=== PATIENT | male | born 1955 | race Caucasian/White ===

== ENCOUNTER 2016-10-19 17:19 | Inpatient (IN) | payer MEDICARE, MEDICAID ==
[2016-10-19 18:15] LABS: Hematocrit 38 % (42-52); Hemoglobin 13.4 g/dl (14.0-18.0); Mean Corpuscular HGB Conc 36 g/dl (31-36); Mean Corpuscular Hemoglobin 35 pg (27-31); Mean Corpuscular Volume 97 fL (80-94); Mean Platelet Volume 8 um3 (7.4-10.4); Red Cell Distribution Width 13 % (10.5-15); White Blood Count 4.9 10^3/ul (3.5-10.8)
[2016-10-19 18:31] LABS: ALT 66 U/L (7-52); AST 64 U/L (13-39); Albumin 3.9 g/dL (3.2-5.2); Alkaline Phosphatase 50 U/L (34-104); Anion Gap 7 mmol/L (2-11); BUN/Creatinine Ratio 13.4 (8-20); Blood Urea Nitrogen 11 mg/dL (6-24); CO2 Carbon Dioxide 26 mmol/L (22-32); Calcium 9.1 mg/dL (8.6-10.3); Chloride 104 mmol/L (101-111); EGFR African American 122.8 (>60); EGFR Non-African American 95.5 (>60); Globulin 2.5 g/dL (2-4); Glucose 101 mg/dL (70-100); Potassium 3.6 mmol/L (3.5-5.0); Sodium 137 mmol/L (133-145); Total Protein 6.4 g/dL (6.4-8.9)
[2016-10-19 18:39] LABS: Acetaminophen < 15 mcg/mL; Alcohol < 10 mg/dL (<10); Salicylate < 2.50 mg/dL (<30)
[2016-10-19] MEDS ORDERED: Haloperidol INJ IV/IM* 5 MG/ML AMP IM ONE (18:50)
[2016-10-19] MEDS ORDERED: diPHENhydraMINE IV* 50 MG/ML 1 ml VIAL (BENADRYL) IM ONE (18:50)
[2016-10-19] MEDS ORDERED: LORazepam INJ* 2 MG/ML 1 ML VIAL IM ONE (18:50)
[2016-10-19 18:51] LABS: TSH (Thyroid Stimulating Horm) 0.95 mcIU/mL (0.34-5.60)
[2016-10-19 18:56] LABS: Urine Bilirubin Negative (Negative); Urine Glucose Negative (Negative); Urine Nitrite Negative (Negative)
[2016-10-19 19:12] LABS: Benzodiazepine Urine Screen None Detected (None Detect)
[2016-10-19 21:47] LABS: Lithium < 0.10 mmol/L (0.6-1.2)
--- NOTE | 2016-10-19 23:11 | ED ---
Geraldine Blum Thomas, scribed for Maty Youssef MD on 10/19/16 at 2111 . Psychiatric Complaint - HPI Summary HPI Summary: LEVEL 5 CAVEAT: HPI IS LIMITED BY PATIENTS UNCOOPERATIVE DEMEANOR The patient is a 61 y/o M BIB police. Upon questioning, the patient responds I refuse to talk to anyone. There is additional history provided in nursing documentation. He is pacing and agitated. - History Of Current Complaint Chief Complaint: EDMentalHealth Time Seen by Provider: 10/19/16 18:50 Hx Obtained From: Other: - Police, EMR, nursing Character: Angry - refusing to talk or cooperate with MD and staff - Allergies/Home Medications Allergies/Adverse Reactions: Allergies Allergy/AdvReac Type Severity Reaction Status Date / Time Molds & Smuts Allergy Unknown Unknown Verified 04/24/15 15:55 Reaction Details Penicillins Allergy Unknown Unknown Verified 04/24/15 15:55 Reaction Details PMH/Surg Hx/FS Hx/Imm Hx Previously Healthy: No - LEVEL 5 CAVEAT: PMH IS LIMITED BY PATIENTS UNCOOPERATIVE DEMEANOR Endocrine/Hematology History: Denies: Hx Anticoagulant Therapy Sensory History: Reports: Hx Contacts or Glasses Opthamlomology History: Reports: Hx Contacts or Glasses Neurological History: Reports: Other Neuro Impairments/Disorders - hx of benztropine tx Denies: Hx Seizures Psychiatric History: Reports: Hx Anxiety, Hx Depression, Hx [place]patient Treatment - [facility] [place] [facility], Hx Community Mental Health Tx, Hx Schizophrenia - hx of navane tx. , Hx Bipolar Disorder, Hx of Violent Episodes Against Others, Other Psychiatric Issues/Disorders - Psychosis - Immunization History Date of Tetanus Vaccine: unk Infectious Disease History: Unable to Obtain/Confirm Infectious Disease History: Denies: Traveled Outside the [place] in Last 30 Days - Family History Known Family History: Positive: Unknown - Patient is a LEVEL 5 CAVEAT Family History: schizophrenia, depression - Social History Alcohol Use: refuses to cooperate with assessment Substance Use Type: Reports: None Smoking Status (MU): Never Smoked Tobacco Review of Systems - ROS Summary Review of Systems Summary: LEVEL 5 CAVEAT: ROS IS LIMITED BY PATIENTS UNCOOPERATIVE DEMEANOR Negative: Fever Positive: Other - POS: pacing, agitation All Other Systems Reviewed And Are Negative: No Physical Exam - Summary Physical Exam Summary: LEVEL 5 CAVEAT: PHYSICAL EXAM IS LIMITED BY PATIENTS UNCOOPERATIVE DEMEANOR Physical exam is by observation only. Pt will not allow physical contact by me. Triage Information Reviewed: Yes Vital Signs On Initial Exam: Initial Vitals Temp Pulse Resp BP Pulse Ox 98.8 F 106 18 174/81 99 10/19/16 17:21 10/19/16 17:21 10/19/16 17:21 10/19/16 17:21 10/19/16 17:21 Vital Signs Reviewed: Yes Appearance: Positive: Well-Appearing, No Pain Distress, Well-Nourished Skin: Positive: Skin Color Reflects Adequate Perfusion, Dry Head/Face: Positive: Normal Head/Face Inspection Eyes: Positive: Conjunctiva Clear ENT: Positive: Normal ENT inspection Neck: Positive: Supple Respiratory/Lung Sounds: Positive: Other - No respiratory distress Musculoskeletal: Positive: Strength/ROM Intact Neurological: Positive: Facial Symmetry, Speech Normal Psychiatric: Positive: Other - He is pacing and agitated, Patient Uncooperative for Exam - Irasema Coma Scale Coma Scale Total: 14 Diagnostics - Vital Signs Vital Signs Temp Pulse Resp BP Pulse Ox 10/19/16 19:01 19 10/19/16 17:44 98.8 F 106 18 174/81 99 10/19/16 17:21 98.8 F 106 18 174/81 99 - Laboratory Lab Results: Lab Results 10/19/16 10/19/16 10/19/16 Range/Units 18:05 18:05 18:40 WBC 4.9 (3.5-10.8) 10^3/ul RBC 3.90 L (4.0-5.4) 10^6/ul Hgb 13.4 L (14.0-18.0) g/dl Hct 38 L (42-52) % MCV 97 H (80-94) fL MCH 35 H (27-31) pg MCHC 36 (31-36) g/dl RDW 13 (10.5-15) % Plt Count 143 L (150-450) 10^3/ul MPV 8 (7.4-10.4) um3 Neut % (Auto) 63.2 (38-83) % Lymph % (Auto) 23.6 L (25-47) % [place] % (Auto) 10.3 H (1-9) % Eos % (Auto) 2.4 (0-6) % Baso % (Auto) 0.5 (0-2) % Absolute Neuts (auto) 3.1 (1.5-7.7) 10^3/ul Absolute Lymphs (auto) 1.2 (1.0-4.8) 10^3/ul Absolute Monos (auto) 0.5 (0-0.8) 10^3/ul Absolute Eos (auto) 0.1 (0-0.6) 10^3/ul Absolute Basos (auto) 0 (0-0.2) 10^3/ul Absolute Nucleated RBC 0 10^3/ul Nucleated RBC % 0.1 Sodium 137 (133-145) mmol/L Potassium 3.6 (3.5-5.0) mmol/L Chloride 104 (101-111) mmol/L Carbon Dioxide 26 (22-32) mmol/L Anion Gap 7 (2-11) mmol/L BUN 11 (6-24) mg/dL Creatinine 0.82 (0.67-1.17) mg/dL Est GFR ( Amer) 122.8 (>60) Est GFR (Non-Af Amer) 95.5 (>60) BUN/Creatinine Ratio 13.4 (8-20) Glucose 101 H (70-100) mg/dL Calcium 9.1 (8.6-10.3) mg/dL Total Bilirubin 1.10 H (0.2-1.0) mg/dL AST 64 H (13-39) U/L ALT 66 H (7-52) U/L Alkaline Phosphatase 50 (34-104) U/L Total Protein 6.4 (6.4-8.9) g/dL Albumin 3.9 (3.2-5.2) g/dL Globulin 2.5 (2-4) g/dL Albumin/Globulin Ratio 1.6 (1-3) TSH 0.95 (0.34-5.60) mcIU/mL Urine Color Urine Appearance Urine pH (5-9) Ur Specific [place] (1.010-1.030) Urine Protein (Negative) Urine Ketones (Negative) Urine Blood (Negative) Urine Nitrate (Negative) Urine Bilirubin (Negative) Urine Urobilinogen (Negative) Ur Leukocyte Esterase (Negative) Urine Glucose (Negative) Salicylates < 2.50 (<30) mg/dL Urine Opiates Screen None detected (None Detect) Acetaminophen < 15 mcg/mL Ur Barbiturates Screen None detected (None Detect) Ur Phencyclidine Scrn None detected (None Detect) Ur Amphetamines Screen None detected (None Detect) U Benzodiazepines Scrn None detected (None Detect) Urine Cocaine Screen None detected (None Detect) U Cannabinoids Screen None detected (None Detect) Serum Alcohol < 10 (<10) mg/dL 10/19/16 Range/Units 18:40 WBC (3.5-10.8) 10^3/ul RBC (4.0-5.4) 10^6/ul Hgb (14.0-18.0) g/dl Hct (42-52) % MCV (80-94) fL MCH (27-31) pg MCHC (31-36) g/dl RDW (10.5-15) % Plt Count (150-450) 10^3/ul MPV (7.4-10.4) um3 Neut % (Auto) (38-83) % Lymph % (Auto) (25-47) % [place] % (Auto) (1-9) % Eos % (Auto) (0-6) % Baso % (Auto) (0-2) % Absolute Neuts (auto) (1.5-7.7) 10^3/ul Absolute Lymphs (auto) (1.0-4.8) 10^3/ul Absolute Monos (auto) (0-0.8) 10^3/ul Absolute Eos (auto) (0-0.6) 10^3/ul Absolute Basos (auto) (0-0.2) 10^3/ul Absolute Nucleated RBC 10^3/ul Nucleated RBC % Sodium (133-145) mmol/L Potassium (3.5-5.0) mmol/L Chloride (101-111) mmol/L Carbon Dioxide (22-32) mmol/L Anion Gap (2-11) mmol/L BUN (6-24) mg/dL Creatinine (0.67-1.17) mg/dL Est GFR ( Amer) (>60) Est GFR (Non-Af Amer) (>60) BUN/Creatinine Ratio (8-20) Glucose (70-100) mg/dL Calcium (8.6-10.3) mg/dL Total Bilirubin (0.2-1.0) mg/dL AST (13-39) U/L ALT (7-52) U/L Alkaline Phosphatase (34-104) U/L Total Protein (6.4-8.9) g/dL Albumin (3.2-5.2) g/dL Globulin (2-4) g/dL Albumin/Globulin Ratio (1-3) TSH (0.34-5.60) mcIU/mL Urine Color Straw Urine Appearance Clear Urine pH 5.0 (5-9) Ur Specific [place] 1.005 L (1.010-1.030) Urine Protein Negative (Negative) Urine Ketones Trace H (Negative) Urine Blood Negative (Negative) Urine Nitrate Negative (Negative) Urine Bilirubin Negative (Negative) Urine Urobilinogen Negative (Negative) Ur Leukocyte Esterase Negative (Negative) Urine Glucose Negative (Negative) Salicylates (<30) mg/dL Urine Opiates Screen (None Detect) Acetaminophen mcg/mL Ur Barbiturates Screen (None Detect) Ur Phencyclidine Scrn (None Detect) Ur Amphetamines Screen (None Detect) U Benzodiazepines Scrn (None Detect) Urine Cocaine Screen (None Detect) U Cannabinoids Screen (None Detect) Serum Alcohol (<10) mg/dL Result Diagrams: 11/02/16 17:47 11/02/16 18:30 Lab Statement: Any lab studies that have been ordered have been reviewed, and results considered in the medical decision making process. - EKG 21:30 Cardiac Rate: NL - A-Fib at 88 BPM. Nml AV/IV/QTc. Left axis deviation (2). No acute changes. Nonspecific ST T-Wave changes. EKG Comparison: No Significant Change - compard to 06/21/12 Course/Dx - Course Assessment/Plan: The patient is a 61 y/o M who is brought in by police and is uncooperative on examination. He is medically cleared at 19:27. Bloodwork shows RBC 3.9, Hgb 13.4, Hct 38, Plt Count 143, bilirubin 1.1, AST 64, ALT 66. UA shows trace ketones and specific gravity 1.005. Urine toxicology is negative and lithium is less than 0.10. EKG shows A-Fib at 88 BPM with no acute changes. He is diagnosed with Bipolar disorder acute exacerbation, medication non- compliance, and elevated liver functions, chronic atrial fibrillation at a controlled rate. He will be admitted to [facility]. - Differential Dx/Clinical Impression Provider Diagnosis: Bipolar disorder acute exacerbation, Non compliance w medication regimen, Elevated liver function tests - Critical Care Time Critical Care Time: 30-74 min - 30 minutes in uncooperative mental health patient requiring medical restraints with haldol, benadryl and lorazepam. Discharge - Discharge Plan Condition: Fair Disposition: ADMITTED TO [facility] documentation as recorded by the Geraldine molina Thomas accurately reflects the service I personally performed and the decisions made by Mikael marte Barbara J, MD.
[2016-10-19] MEDS ORDERED: Nicotine GUM* 2 MG PO PRN (23:27)
[2016-10-19] MEDS ORDERED: Acetaminophen TAB* 325 MG PO PRN (23:27)
[2016-10-19] MEDS ORDERED: clonazePAM TAB(*) 1 MG PO ONE (23:36)
[2016-10-19] MEDS ORDERED: clonazePAM TAB(*) 0.5 MG ONE (23:38)
[2016-10-20] MEDS: Lithium Carbonate TAB* 300 MG PO SCH ×2 (01:07→20:12)
[2016-10-20] MEDS: Vitamin THERAPEUTIC TAB PO SCH (14:29)
[2016-10-20] MEDS: Calcium/Vitamin D TAB 250/125* TAB PO SCH ×2 (14:29→22:28)
[2016-10-20] MEDS: Losartan TAB* 25 MG PO SCH (14:29)
[2016-10-20] MEDS: Senna TAB PO SCH ×2 (14:29→20:16)
[2016-10-20] MEDS: Polyethylene Glycol 3350* 17 GM PACKET PO SCH (14:29)
[2016-10-20] MEDS: Benztropine TAB* 1 MG PO SCH ×2 (14:29→22:28)
[2016-10-20] MEDS: Warfarin TAB(*) 2 MG PO SCH ×2 (17:30→17:55)
[2016-10-20] MEDS: Warfarin TAB(*) 2.5 MG PO SCH ×2 (17:31→17:56)
[2016-10-20] MEDS: MELATONIN 1 MG PO SCH (17:31)
--- NOTE | 2016-10-20 21:38 | HP ---
HISTORY AND PHYSICAL: DATE OF ADMISSION: IDENTIFYING DATA: Mr. Lopez is well known to this unit and surrounding hospitals with psychiatric unit for repeated hospitalizations due to his diagnosis of chronic schizophrenia. Last night, he w as brought to [facility] by ambulance for an evaluation because of disorganized behaviors in his apartme nt. CHIEF COMPLAINT: "I can't get along with ACT Team." HISTORY OF PRESENT ILLNESS: Mr. Lopez as usual is a very unreliable and uncooperative historian. At one moment, he will insist on talking to his doctor and next moment he will walk away from the e valuation, which he did today as well. However, during the brief encounter I had with him, he report s that he does not like the ACT Team and would not work with them anymore and to avoid them he decid ed to come to the emergency department and got hospitalized. Otherwise, he inappropriately smiles a nd walks away very fast, goes to the bathroom, washes something and comes back to say "how did I do. " Multiple attempts to get more informations from him was unsuccessful. At one point, he replied t o a question that I never had heard voices, you were just making it up. He paces the unit very fast , sometimes in a very intimidating manner; however, remains calm and pleasant when redirected. Revi ew of his records from the past also shows this similar behavior. In the emergency department last night, when our evaluators tried to assess him he did not cooperate at all. On the unit, he is not much of a management problem and as per nursing report has been compliant with medication management except for not attending any therapeutic groups or unit activities. PAST PSYCHIATRIC HISTORY: Past psychiatric history is remarkable for numerous psychiatric hospitali zations, which started at around age 15. He was diagnosed with schizophrenia and has a long history of noncompliance with outpatient treatments. He is currently under ACT Team and not happy with the m unwilling to cooperate with the ACT Team. PAST MEDICAL HISTORY: Remarkable for aortic stenosis and atrial fibrillation. FAMILY HISTORY: Obtained from the records indicate that both sides of his family has struggled with mental illness and diagnosis of schizophrenia, depression, and anger management difficulties. His older brother also suffered from mental illness. However, there is no family history of completed s uicide. PERSONAL AND SOCIAL HISTORY: Mr. Lopez was never , been mentally disabled for entire life. Currently, placed in an apartment where he lives by himself and followed by [facility]. 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 PHYSICAL EXAMINATION Physical exam was offered, but he just walked away stating you have no business doing a physical bec ause your are not my doctor. However, he was not in any physical distress. Review of vitals shows a blood pressure of 174/81, pulse 106, respirations 18, temperature 98.8, pul se ox 99% on room air. LABORATORY DATA: Labs included CBC with differential, chemistry profile, urinalysis, urine drug sc reen, and tox screen. CBC with differential shows WBC of 4.9, hemoglobin 13.4, hematocrit 38, MCV 9 7, platelet count 143. Rest of the report is unremarkable. Chemistry profile shows a sodium level of 137, potassium 3.6, chloride 104, carbon dioxide 27, BUN 11, creatinine 0.82, glucose 101 random. Rest of the reports unremarkable. Salicylate level less than 2.5, acetaminophen level less than 15 , serum alcohol level less than 10. EKG done in the emergency department was within normal limits. I have not seen a result on INR yet, which was ordered last night. MENTAL STATUS EXAMINATION: Mr. Lopez is an average height, healthy appearing, white male, neatly dressed and groomed. Alert and oriented to time, place, and person. Fidgety and restless. Paces t he unit, very difficult to engage him in any kind of meaningful conversations. Speech is rapid. Ci rcumstantial and tangential. No evidence of perceptual disturbances, although psychomotor agitation is visible. Denies any suicidal or homicidal ideations. Insight and judgment impaired. SUMMARY: This is a 61-year-old mentally disabled since age 15, male with numerous psychia tric hospitalizations, history of nonadherence to all treatment recommendations, was rehospitalized weeks after his discharge from [facility] for the same reason that he comes to the emergency room complaining of having difficulty getting along with his ACT Team. He does not a ppear to be in any acute psychotic, manic, or hypomanic condition, and he received his long-acting i njectable Invega Sustenna few weeks ago, which appears to be working fine at this time. DIAGNOSIS: Schizophrenia, chronic. PHYSICAL HEALTH DIAGNOSES: Atrial fib, aortic stenosis. TREATMENT RECOMMENDATIONS: Mr. Lopez will need a brief hospitalization on this unit and the disch arge plan is to coordinate a safe discharge with the ACT Team and discharge him back to the critical access hospital y without further delay as this appears to be Mr. Lopez's baseline mental status. While he is on the unit, his code status will be full, milieu, individual, supportive, and group therapy will be in itiated and the patient will be encouraged to participate. I do not see any reason for adjusting an y of his medications at this time because this is what appears to be his baseline mental status. [id number]/[facility] #: [id number]
[2016-10-20] MEDS: clonazePAM TAB(*) 1 MG PO SCH (22:28)
[2016-10-21] MEDS: Benztropine TAB* 1 MG PO SCH ×2 (13:20→21:23)
[2016-10-21] MEDS: Polyethylene Glycol 3350* 17 GM PACKET PO SCH (13:20)
[2016-10-21] MEDS: Losartan TAB* 25 MG PO SCH (13:20)
[2016-10-21] MEDS: Vitamin THERAPEUTIC TAB PO SCH (13:20)
[2016-10-21] MEDS: Senna TAB PO SCH ×2 (13:20→21:24)
[2016-10-21] MEDS: Calcium/Vitamin D TAB 250/125* TAB PO SCH ×2 (13:20→21:23)
[2016-10-21] MEDS: Warfarin TAB(*) 2.5 MG PO SCH (17:35)
[2016-10-21] MEDS: MELATONIN 1 MG PO SCH (17:35)
[2016-10-21] MEDS: Warfarin TAB(*) 2 MG PO SCH (17:35)
[2016-10-21] MEDS: clonazePAM TAB(*) 1 MG PO SCH (21:23)
[2016-10-21] MEDS: Lithium Carbonate TAB* 300 MG PO SCH (21:24)
--- NOTE | 2016-10-22 10:36 | PN ---
Subjective - Subjective Service Type: 44525 Hosp care 15 min low complexity Subjective: Patient noted to be dismissive of staff and focused on discharge since admission. Patient declined interview with this provider. Patient is noted to be on coumadin and RN reported to this provider that his last INR was 1.1 on 10/18/16. Patient's [place] level also noted to be subtherapeutic on admission at 0.10. Patient's Navane nor his Risperdal was not restarted on admission. Patient is on Coumadin therapy for Afib but there seems to be 2 orders entered for admission at the same time. Patient has likely been non-compliant with these meds as well. Patient noted to be non-compliant with ACT team. Patient has had multiple psychiatric admissions most 2/2 becoming med non-compliant. Patient admitted this Saturday for decompensated paranoid Schizophrenia. Will D/C Navane and patient historically has asked to be taken off this med. Will continue Risperdal with plan to initiate Invega Sustenna prior to his discharge. Objective - Appearance Appearance: Healthy Appearing, Thin Framed Dysmorphic Features: No Hygiene: Normal Grooming: Fairly Well Kept - Behavior Psychomotor Activities: Normal Exhibits Abnormal Movement: No - Attitude and Relatedness Attitude and Relatedness: Regressed Eye Contact: Poor - Speech Quality: Unpressured Latencies: Normal Quantity: Terse - Affect Observed Affect: Tense Affect Consistent with: Dysphoria - Thought Process Thought Content: Yes Paranoid Ideation - present on admission, unable to assess today, No Passive Wish - unable to assess, No Suicidal Planning - unable to assess, No Homicidal Ideation - unable to assess - Sensorium Type of Hallucinations: Visual: No - unable to assess, Auditory: No - unable to assess, Command: No - unable to assess - Level of Consciousness Level of Consciousness: Alert Orientation: Yes Intact, Yes Orientated to Time, Yes Orientated to Place, Yes Orientated to Person - Impulse Control Impulse Control: Impaired - Insight and Judgement Insight and Judgement: Impaired - Group Participation Particating in Group Activities: No - Medication Management Medication Management Adherence: No Assessment - Assessment Merits Inpatient Hospitalization: For Immediate Safety, For Stabilization Inpatient DSM-IV Dx: Schizophrenia Plan - Plan Treatment Plan: Name: JESUS BENITEZ Birthdate: 1955 [id number] 1. Continue admission to [facility] for safety and symptom mx. 2. Patient's Navane nor his Risperdal was not restarted on admission. Will D/C Navane due to patient's reported disdain for med and hx of med non- compliance. 3. Will Continue Risperdal at 3mg po qhs for psychosis with plan to initiate Invega Sustenna prior to discharge. 4. Continue [place] at home dose of 1,200mg po qhs for mood. Patient's [place] level noted to be subtherapeutic on admission at 0.10. 5. Will call outpt provider who Rx's Coumadin to clarify dose. Will continue Coumadin as currently Rx'd. Patient's last INR was 1.1 on 10/18/16. 6. Continue to obtain collateral information from family and ACTteam. 7. Patient to participate in milieu activities and groups. Medications: Current Medications Acetaminophen (Tylenol Tab*) 650 mg PO Q4H PRN PRN Reason: PAIN or TEMP > 101 F Al Hydrox/Mg Hydrox/Simethicone (Maalox Plus*) 30 ml PO Q4H PRN PRN Reason: INDIGESTION Benztropine Mesylate (Cogentin Tab*) 1 mg PO BID [facility] Last Admin: 10/21/16 21:23 Dose: Not Given Calcium/Vitamin D (Oscal D Tab 250/125*) 2 tab PO BID [facility] Last Admin: 10/21/16 21:23 Dose: Not Given Clonazepam (Klonopin Tab(*)) 1 mg PO BEDTIME [facility] Last Admin: 10/21/16 21:23 Dose: Not Given [place] Carbonate ([place] Carbonate Tab*) 1,200 mg PO BEDTIME [facility] Last Admin: 10/21/16 21:24 Dose: Not Given Losartan Potassium (Cozaar Tab*) 25 mg PO DAILY [facility] Last Admin: 10/21/16 13:20 Dose: Not Given Multivitamins (Theragran Tab*) 1 tab PO DAILY [facility] Last Admin: 10/21/16 13:20 Dose: Not Given Nicotine Polacrilex (Nicotine Gum*) 2 mg PO Q2H PRN PRN Reason: CRAVING Non Formulary Med* (Melatonin 1mg Tab) 1 admin PO 1700 [facility] Last Admin: 10/21/16 17:35 Dose: Not Given Polyethylene Glycol/Electrolytes (Miralax*) 17 gm PO DAILY [facility] Last Admin: 10/21/16 13:20 Dose: Not Given Senna (Senokot Tab*) 1 tab PO BID [facility] Last Admin: 10/21/16 21:24 Dose: Not Given Warfarin Sodium (Coumadin Tab(*)) 2 mg PO 1700 [facility] Last Admin: 10/21/16 17:35 Dose: Not Given Warfarin Sodium (Coumadin Tab(*)) 2.5 mg PO 1700 [facility] Last Admin: 10/21/16 17:35 Dose: Not Given - Discharge Plan Discharge Plan: Outpatient Follow Up
[2016-10-22] MEDS: Losartan TAB* 25 MG PO SCH (10:39)
[2016-10-22] MEDS: Calcium/Vitamin D TAB 250/125* TAB PO SCH ×3 (10:39→21:28)
[2016-10-22] MEDS: Senna TAB PO SCH ×2 (10:39→21:29)
[2016-10-22] MEDS: Polyethylene Glycol 3350* 17 GM PACKET PO SCH (10:39)
[2016-10-22] MEDS: Vitamin THERAPEUTIC TAB PO SCH (10:39)
[2016-10-22] MEDS: Benztropine TAB* 1 MG PO SCH ×2 (10:39→21:28)
[2016-10-22] MEDS: Al Hydrox/Mg Hydrox/Simet LIQ* 30 ML UDC PO PRN ×2 (12:40→17:22)
[2016-10-22] MEDS: MELATONIN 1 MG PO SCH (18:04)
[2016-10-22] MEDS: Warfarin TAB(*) 2 MG PO SCH (18:04)
[2016-10-22] MEDS: Warfarin TAB(*) 2.5 MG PO SCH (18:04)
[2016-10-22] MEDS: clonazePAM TAB(*) 1 MG PO SCH (21:28)
[2016-10-22] MEDS: Lithium Carbonate TAB* 300 MG PO SCH (21:29)
[2016-10-22] MEDS: risperiDONE TAB* 3 MG PO SCH (21:29)
[2016-10-23] MEDS: clonazePAM TAB(*) 1 MG PO SCH ×3 (00:56→20:55)
[2016-10-23] MEDS: risperiDONE TAB* 3 MG PO SCH ×2 (00:57→20:55)
[2016-10-23] MEDS ORDERED: Paliperidone TAB* 3 MG TAB PO SCH (09:00)
[2016-10-23] MEDS: Benztropine TAB* 1 MG PO SCH ×2 (09:43→20:55)
[2016-10-23] MEDS: Calcium/Vitamin D TAB 250/125* TAB PO SCH ×2 (09:44→20:55)
[2016-10-23] MEDS: Polyethylene Glycol 3350* 17 GM PACKET PO SCH (09:44)
[2016-10-23] MEDS: Senna TAB PO SCH ×2 (09:44→20:55)
[2016-10-23] MEDS: Vitamin THERAPEUTIC TAB PO SCH (09:44)
[2016-10-23] MEDS: Losartan TAB* 25 MG PO SCH (09:44)
--- NOTE | 2016-10-23 15:51 | PN ---
Subjective - Subjective Service Type: 33514 Hosp care 15 min low complexity Subjective: Patient noted to be isolated to his room most of the day. He is up for meals and is makes needs known to staff. Patient continues to be bizarre in behavior and has been observed responding to internal stimuli. Patient has refused meds. He also refused blood draw for repeat INR. Patient again declines to interview with this provider. Will initiate process of TOO. Objective - Appearance Appearance: Well Developed/Nourished, Thin Framed Dysmorphic Features: No Hygiene: Normal Grooming: Fairly Well Kept - Behavior Psychomotor Activities: Abnormal-Increased Exhibits Abnormal Movement: No - Attitude and Relatedness Attitude and Relatedness: Irritable Eye Contact: Poor - Speech Quality: Unpressured Latencies: Normal Quantity: Terse - Mood Patient's Decription of Mood: Unable to assess. - Affect Observed Affect: Tense Affect Consistent with: Dysphoria - Thought Process Patient's Thought Process: Impoverished Thought Content: No Passive Wish - Unable to assess., No Suicidal Planning - Unable to assess., No Homicidal Ideation - Unable to assess., No Paranoid Ideation - Unable to assess. - Sensorium Experiencing Hallucinations: No, Sensorium is Clear Type of Hallucinations: Visual: No - Unable to assess., Auditory: No - Unable to assess., Command: No - Unable to assess. - Level of Consciousness Level of Consciousness: Alert Orientation: Yes Intact, Yes Orientated to Time, Yes Orientated to Place, Yes Orientated to Person - Impulse Control Impulse Control: Impaired - Insight and Judgement Insight and Judgement: Impaired - Group Participation Particating in Group Activities: No - Medication Management Medication Management Adherence: No Assessment - Assessment Merits Inpatient Hospitalization: For Immediate Safety, For Stabilization Inpatient DSM-IV Dx: Schizophrenia Plan - Plan Treatment Plan: Name: JESUS BENITEZ Birthdate: 1955 [id number] 1. Continue admission to [facility] for safety and symptom mx. 2. Patient's Navane nor his Risperdal was restarted on admission. Will D/C Navane due to patient's reported disdain for med and hx of med non- compliance. 3. Will Continue Risperdal at 3mg po qhs for psychosis with plan to initiate Invega Sustenna prior to discharge. 4. Continue [place] at home dose of 1,200mg po qhs for mood. Patient's [place] level noted to be subtherapeutic on admission at 0.10. 5. Will continue Coumadin as currently Rx'd. Patient's last INR was 1.16 on . 6. Continue to obtain collateral information from family and ACTteam. 7. Patient to participate in milieu activities and groups. Medications: Current Medications Acetaminophen (Tylenol Tab*) 650 mg PO Q4H PRN PRN Reason: PAIN or TEMP > 101 F Al Hydrox/Mg Hydrox/Simethicone (Maalox Plus*) 30 ml PO Q4H PRN PRN Reason: INDIGESTION Last Admin: 10/22/16 17:22 Dose: 30 ml Benztropine Mesylate (Cogentin Tab*) 1 mg PO BID [facility] Last Admin: 10/23/16 09:43 Dose: Not Given Calcium/Vitamin D (Oscal D Tab 250/125*) 2 tab PO BID [facility] Last Admin: 10/23/16 09:44 Dose: Not Given Clonazepam (Klonopin Tab(*)) 1 mg PO BEDTIME [facility] Last Admin: 10/23/16 07:25 Dose: Not Given [place] Carbonate ([place] Carbonate Tab*) 1,200 mg PO BEDTIME [facility] Last Admin: 10/22/16 21:29 Dose: Not Given Losartan Potassium (Cozaar Tab*) 25 mg PO DAILY [facility] Last Admin: 10/23/16 09:44 Dose: Not Given Multivitamins (Theragran Tab*) 1 tab PO DAILY [facility] Last Admin: 10/23/16 09:44 Dose: Not Given Nicotine Polacrilex (Nicotine Gum*) 2 mg PO Q2H PRN PRN Reason: CRAVING Non Formulary Med* (Melatonin 1mg Tab) 1 admin PO 1700 [facility] Last Admin: 10/22/16 18:04 Dose: Not Given Polyethylene Glycol/Electrolytes (Miralax*) 17 gm PO DAILY [facility] Last Admin: 10/23/16 09:44 Dose: Not Given Risperidone (Risperdal*) 3 mg PO BEDTIME [facility] Last Admin: 10/23/16 00:57 Dose: 3 mg Senna (Senokot Tab*) 1 tab PO BID [facility] Last Admin: 10/23/16 09:44 Dose: Not Given Warfarin Sodium (Coumadin Tab(*)) 2 mg PO 1700 [facility] Last Admin: 10/22/16 18:04 Dose: Not Given Warfarin Sodium (Coumadin Tab(*)) 2.5 mg PO 1700 [facility] Last Admin: 10/22/16 18:04 Dose: Not Given - Discharge Plan Discharge Plan: Outpatient Follow Up
[2016-10-23] MEDS: MELATONIN 1 MG PO SCH (16:45)
[2016-10-23] MEDS: Warfarin TAB(*) 2 MG PO SCH (16:45)
[2016-10-23] MEDS: Warfarin TAB(*) 2.5 MG PO SCH (16:46)
[2016-10-23] MEDS: Lithium Carbonate TAB* 300 MG PO SCH (20:55)
[2016-10-24] MEDS: Polyethylene Glycol 3350* 17 GM PACKET PO SCH ×2 (08:11→08:16)
[2016-10-24] MEDS: Benztropine TAB* 1 MG PO SCH ×2 (08:15→20:03)
[2016-10-24] MEDS: Calcium/Vitamin D TAB 250/125* TAB PO SCH ×2 (08:15→20:03)
[2016-10-24] MEDS: Vitamin THERAPEUTIC TAB PO SCH (08:16)
[2016-10-24] MEDS: Senna TAB PO SCH ×2 (08:16→20:03)
[2016-10-24] MEDS: Losartan TAB* 25 MG PO SCH (08:16)
--- NOTE | 2016-10-24 10:31 | PN ---
Subjective - Subjective Service Type: 71165 Hosp care 15 min low complexity Subjective: Patient is visible in the milieu pacing. He is noted to be social with select peers. Patient continues to be paranoid of staff and declining initiation in conversation. Patient again declined to speak to this provider. Patient educated on why this provider is concerned with his med non-compliance, with special focus on his dx of afib and his increased risk of [place] or CVA with each day he does not take his coumadin anticoagulation therapy. Patient stated, "I don't have atrial fibrillation" and walked away. Patient has not been med compliant. Patient has attended to ADLs, is up for meals, and is able to verbalize his needs to staff. Objective - Appearance Appearance: Well Developed/Nourished Dysmorphic Features: No Hygiene: Normal Grooming: Fairly Well Kept - Behavior Psychomotor Activities: Normal Exhibits Abnormal Movement: No - Attitude and Relatedness Attitude and Relatedness: Psychotically Related Eye Contact: Poor - Speech Quality: Unpressured Latencies: Normal Quantity: Terse - Mood Patient's Decription of Mood: "Fine" - Affect Observed Affect: Constricted Affect Consistent with: Dysphoria - Thought Process Patient's Thought Process: Coherent Thought Content: No Passive Wish - unable to assess, No Suicidal Planning - unable to assess, No Homicidal Ideation - unable to assess, No Paranoid Ideation - unable to assess - Sensorium Experiencing Hallucinations: No, Sensorium is Clear Type of Hallucinations: Visual: No - unable to assess, Auditory: No - unable to assess, Command: No - unable to assess - Level of Consciousness Level of Consciousness: Alert Orientation: Yes Intact, Yes Orientated to Time, Yes Orientated to Place, Yes Orientated to Person - Impulse Control Impulse Control: Intact - Insight and Judgement Insight and Judgement: Fair - Group Participation Particating in Group Activities: Yes - Medication Management Medication Management Adherence: Yes Assessment - Assessment Merits Inpatient Hospitalization: For Immediate Safety, For Stabilization Inpatient DSM-IV Dx: Schizophrenia Plan - Plan Treatment Plan: Name: JESUS BENITEZ Birthdate: 1955 [id number] 1. Continue admission to [facility] for safety and symptom mx. 2. Patient's Navane nor his Risperdal was restarted on admission. Will D/C Navane due to patient's reported disdain for med and hx of med non- compliance. 3. Continue to encourage med compliance with Risperdal at 3mg po qhs for psychosis with plan to initiate Invega Sustenna prior to discharge. 4. Continue to encourage med compliance with [place] at home dose of 1,200mg po qhs for mood. Patient's [place] level noted to be sub-therapeutic on admission at 0.10. 5. Patient informed Coumadin will be replaced for Xarelto due to patient's non- compliance on Coumadin and to provide immediate anticoagulation coverage. Patient's last INR was 1.16 on 10/19/16. 6. Continue to obtain collateral information from family and ACT team. 7. Patient to participate in milieu activities and groups. Continued Medication Management: Different Medication Medications: Current Medications Acetaminophen (Tylenol Tab*) 650 mg PO Q4H PRN PRN Reason: PAIN or TEMP > 101 F Al Hydrox/Mg Hydrox/Simethicone (Maalox Plus*) 30 ml PO Q4H PRN PRN Reason: INDIGESTION Last Admin: 10/22/16 17:22 Dose: 30 ml Benztropine Mesylate (Cogentin Tab*) 1 mg PO BID [facility] Last Admin: 10/24/16 08:15 Dose: Not Given Calcium/Vitamin D (Oscal D Tab 250/125*) 2 tab PO BID [facility] Last Admin: 10/24/16 08:15 Dose: Not Given Clonazepam (Klonopin Tab(*)) 1 mg PO BEDTIME [facility] Last Admin: 10/23/16 20:55 Dose: Not Given [place] Carbonate ([place] Carbonate Tab*) 1,200 mg PO BEDTIME [facility] Last Admin: 10/23/16 20:55 Dose: Not Given Losartan Potassium (Cozaar Tab*) 25 mg PO DAILY [facility] Last Admin: 10/24/16 08:16 Dose: Not Given Multivitamins (Theragran Tab*) 1 tab PO DAILY [facility] Last Admin: 10/24/16 08:16 Dose: Not Given Nicotine Polacrilex (Nicotine Gum*) 2 mg PO Q2H PRN PRN Reason: CRAVING Non Formulary Med* (Melatonin 1mg Tab) 1 admin PO 1700 [facility] Last Admin: 10/23/16 16:45 Dose: Not Given Polyethylene Glycol/Electrolytes (Miralax*) 17 gm PO DAILY [facility] Last Admin: 10/24/16 08:16 Dose: Not Given Risperidone (Risperdal*) 3 mg PO BEDTIME [facility] Last Admin: 10/23/16 20:55 Dose: Not Given Senna (Senokot Tab*) 1 tab PO BID [facility] Last Admin: 10/24/16 08:16 Dose: Not Given Warfarin Sodium (Coumadin Tab(*)) 2 mg PO 1700 [facility] Last Admin: 10/23/16 16:45 Dose: Not Given Warfarin Sodium (Coumadin Tab(*)) 2.5 mg PO 1700 [facility] Last Admin: 10/23/16 16:46 Dose: Not Given - Discharge Plan Discharge Plan: Outpatient Follow Up Outpatient Program: Brand[facility]
[2016-10-24] MEDS: Rivaroxaban TAB(*) 20 MG TAB PO SCH (17:13)
[2016-10-24] MEDS: MELATONIN 1 MG PO SCH (17:14)
[2016-10-24] MEDS: Lithium Carbonate TAB* 300 MG PO SCH (20:03)
[2016-10-24] MEDS: risperiDONE TAB* 3 MG PO SCH (20:03)
[2016-10-24] MEDS: clonazePAM TAB(*) 1 MG PO SCH (20:03)
[2016-10-25] MEDS: Calcium/Vitamin D TAB 250/125* TAB PO SCH ×2 (10:01→20:06)
[2016-10-25] MEDS: Benztropine TAB* 1 MG PO SCH ×2 (10:01→20:06)
[2016-10-25] MEDS: Losartan TAB* 25 MG PO SCH (10:01)
[2016-10-25] MEDS: Rivaroxaban TAB(*) 20 MG TAB PO SCH ×2 (10:02→15:11)
[2016-10-25] MEDS: Senna TAB PO SCH ×2 (10:02→20:07)
[2016-10-25] MEDS: Polyethylene Glycol 3350* 17 GM PACKET PO SCH (10:02)
[2016-10-25] MEDS: Vitamin THERAPEUTIC TAB PO SCH (10:02)
--- NOTE | 2016-10-25 10:42 | PN ---
Subjective - Subjective Service Type: 20640 Hosp care 15 min low complexity Subjective: Patient is visible in the milieu pacing, isolative today. He was informed TOO process was iniitiated. Patient continues to be paranoid of staff. Patient again declined to speak to this provider. Patient encouraged patient to take Xarelto for anticoagulation due to increasing risk of [place]/CVA from Afib while not on anticoagulation therapy. This was done to no avail. Patient has not been compliant with any meds. Patient has attended to ADLs, is up for meals, and is able to verbalize his needs to staff. Objective - Appearance Appearance: Thin Framed Dysmorphic Features: No Hygiene: Normal Grooming: Fairly Well Kept - Behavior Psychomotor Activities: Normal Exhibits Abnormal Movement: No - Attitude and Relatedness Attitude and Relatedness: Psychotically Related Eye Contact: Poor - Speech Quality: Unpressured Latencies: Normal Quantity: Terse - Mood Patient's Decription of Mood: "Fine" - Affect Observed Affect: Tense Affect Consistent with: Dysphoria - Thought Process Patient's Thought Process: Coherent Thought Content: Yes Paranoid Ideation, No Passive Wish, No Suicidal Planning, No Homicidal Ideation - Sensorium Experiencing Hallucinations: No, Sensorium is Clear Type of Hallucinations: Visual: No, Auditory: No, Command: No - Level of Consciousness Level of Consciousness: Alert Orientation: Yes Intact, Yes Orientated to Time, Yes Orientated to Place, Yes Orientated to Person - Impulse Control Impulse Control: Intact - Insight and Judgement Insight and Judgement: Impaired - Group Participation Particating in Group Activities: No - Medication Management Medication Management Adherence: No Assessment - Assessment Merits Inpatient Hospitalization: For Immediate Safety, For Stabilization Inpatient DSM-IV Dx: Schizophrenia Plan - Plan Treatment Plan: Name: JESUS BENITEZ Birthdate: 1955 [id number] 1. Continue admission to [facility] for safety and symptom mx. 2. Patient's Navane nor his Risperdal was restarted on admission. Will D/C Navane due to patient's reported disdain for med and hx of med non- compliance. 3. Continue to encourage med compliance with Risperdal at 3mg po qhs for psychosis with plan to initiate Invega Sustenna prior to discharge. 4. Continue to encourage med compliance with [place] at home dose of 1,200mg po qhs for mood. Patient's [place] level noted to be sub-therapeutic on admission at 0.10. 5. Continue to encourage Xarelto 20mg po daily for anticoagulation therapy dx- Afib. Patient non-compliance on Coumadin and Xarelto provides immediate anticoagulation. 6. Collateral information obtained from PCP-Dr. Sebas Ochoa#[phone] and ACT team. 7. Patient to participate in milieu activities and groups. Medications: Current Medications Acetaminophen (Tylenol Tab*) 650 mg PO Q4H PRN PRN Reason: PAIN or TEMP > 101 F Al Hydrox/Mg Hydrox/Simethicone (Maalox Plus*) 30 ml PO Q4H PRN PRN Reason: INDIGESTION Last Admin: 10/22/16 17:22 Dose: 30 ml Benztropine Mesylate (Cogentin Tab*) 1 mg PO BID [facility] Last Admin: 10/25/16 10:01 Dose: Not Given Calcium/Vitamin D (Oscal D Tab 250/125*) 2 tab PO BID [facility] Last Admin: 10/25/16 10:01 Dose: Not Given Clonazepam (Klonopin Tab(*)) 1 mg PO BEDTIME [facility] Last Admin: 10/24/16 20:03 Dose: Not Given [place] Carbonate ([place] Carbonate Tab*) 1,200 mg PO BEDTIME [facility] Last Admin: 10/24/16 20:03 Dose: Not Given Losartan Potassium (Cozaar Tab*) 25 mg PO DAILY [facility] Last Admin: 10/25/16 10:01 Dose: Not Given Melatonin (Melatonin (Nf)) 3 mg PO BEDTIME [facility] Multivitamins (Theragran Tab*) 1 tab PO DAILY [facility] Last Admin: 10/25/16 10:02 Dose: Not Given Nicotine Polacrilex (Nicotine Gum*) 2 mg PO Q2H PRN PRN Reason: CRAVING Non Formulary Med* (Melatonin 1mg Tab) 1 admin PO 1700 [facility] Last Admin: 10/24/16 17:14 Dose: Not Given Polyethylene Glycol/Electrolytes (Miralax*) 17 gm PO DAILY [facility] Last Admin: 10/25/16 10:02 Dose: Not Given Risperidone (Risperdal*) 3 mg PO BEDTIME [facility] Last Admin: 10/24/16 20:03 Dose: Not Given Rivaroxaban (Xarelto (*)) 20 mg PO DAILY [facility] Last Admin: 10/25/16 10:02 Dose: Not Given Senna (Senokot Tab*) 1 tab PO BID [facility] Last Admin: 10/25/16 10:02 Dose: Not Given - Discharge Plan Discharge Plan: Outpatient Follow Up Outpatient Program: ACT team
[2016-10-25] MEDS: MELATONIN 1 MG PO SCH (17:00)
[2016-10-25] MEDS: CMC:Melatonin (NF) 3 MG TAB PO SCH (20:06)
[2016-10-25] MEDS: risperiDONE TAB* 3 MG PO SCH (20:06)
[2016-10-25] MEDS: clonazePAM TAB(*) 1 MG PO SCH (20:06)
[2016-10-25] MEDS: Lithium Carbonate TAB* 300 MG PO SCH (20:06)
[2016-10-26] MEDS: Benztropine TAB* 1 MG PO SCH ×2 (08:35→20:52)
[2016-10-26] MEDS: Vitamin THERAPEUTIC TAB PO SCH (08:35)
[2016-10-26] MEDS: Rivaroxaban TAB(*) 20 MG TAB PO SCH (08:35)
[2016-10-26] MEDS: Polyethylene Glycol 3350* 17 GM PACKET PO SCH (08:35)
[2016-10-26] MEDS: Calcium/Vitamin D TAB 250/125* TAB PO SCH ×3 (08:35→21:41)
[2016-10-26] MEDS: Senna TAB PO SCH ×2 (08:35→20:53)
[2016-10-26] MEDS: Losartan TAB* 25 MG PO SCH (08:35)
--- NOTE | 2016-10-26 09:55 | PN ---
Subjective - Subjective Service Type: 88568 Hosp care 15 min low complexity Subjective: Patient continues to decline to talk to this provider. Patient is visible in the milieu pacing/walking, isolative today. He was again encouraged to take Xarelto for anticoagulation due to increased of [place]/CVA from Afib while not on anticoagulation therapy. This was done to no avail. Patient has not been compliant with any meds. Patient has attended to ADLs, is up for meals, and is able to verbalize his needs to staff. Objective - Appearance Appearance: Well Developed/Nourished Dysmorphic Features: No Hygiene: Normal Grooming: Fairly Well Kept - Behavior Psychomotor Activities: Normal Exhibits Abnormal Movement: No - Attitude and Relatedness Attitude and Relatedness: Cooperative Eye Contact: Fair - Speech Quality: Unpressured Latencies: Normal Quantity: Appropriate - Mood Patient's Decription of Mood: "Irritable" - Affect Observed Affect: Good Affect Consistent with: Euthymia - Thought Process Patient's Thought Process: Coherent Thought Content: No Passive Wish, No Suicidal Planning, No Homicidal Ideation, No Paranoid Ideation - Sensorium Experiencing Hallucinations: No, Sensorium is Clear Type of Hallucinations: Visual: No, Auditory: No, Command: No - Level of Consciousness Level of Consciousness: Alert Orientation: Yes Intact, Yes Orientated to Time, Yes Orientated to Place, Yes Orientated to Person - Impulse Control Impulse Control: Impaired - Insight and Judgement Insight and Judgement: Impaired - Group Participation Particating in Group Activities: Yes - Medication Management Medication Management Adherence: Yes Assessment - Assessment Merits Inpatient Hospitalization: For Immediate Safety, For Stabilization Inpatient DSM-IV Dx: Schizophrenia Plan - Plan Treatment Plan: Name: JESUS BENITEZ Birthdate: 1955 [id number] 1. Continue admission to [facility] for safety and symptom mx. 2. Navane D/C'd due to patient's reported disdain for med and hx of med non- compliance. 3. Continue to encourage med compliance with Risperdal at 3mg po qhs for psychosis with plan to initiate Invega Sustenna prior to discharge. 4. Continue to encourage med compliance with [place] at home dose of 1,200mg po qhs for mood. Patient's [place] level noted to be sub-therapeutic on admission at 0.10. 5. Continue to encourage Xarelto 20mg po daily for anticoagulation therapy dx- Afib. Patient non-compliance on Coumadin and Xarelto provides immediate anticoagulation. 6. Collateral information obtained from PCP-Dr. Sebas Ochoa#[phone] and ACT team. 7. Patient to participate in milieu activities and groups. Medications: Current Medications Acetaminophen (Tylenol Tab*) 650 mg PO Q4H PRN PRN Reason: PAIN or TEMP > 101 F Al Hydrox/Mg Hydrox/Simethicone (Maalox Plus*) 30 ml PO Q4H PRN PRN Reason: INDIGESTION Last Admin: 10/22/16 17:22 Dose: 30 ml Benztropine Mesylate (Cogentin Tab*) 1 mg PO BID [facility] Last Admin: 10/26/16 08:35 Dose: Not Given Calcium/Vitamin D (Oscal D Tab 250/125*) 2 tab PO BID [facility] Last Admin: 10/26/16 08:35 Dose: Not Given Clonazepam (Klonopin Tab(*)) 1 mg PO BEDTIME [facility] Last Admin: 10/25/16 20:06 Dose: Not Given [place] Carbonate ([place] Carbonate Tab*) 1,200 mg PO BEDTIME [facility] Last Admin: 10/25/16 20:06 Dose: Not Given Losartan Potassium (Cozaar Tab*) 25 mg PO DAILY [facility] Last Admin: 10/26/16 08:35 Dose: Not Given Melatonin (Melatonin (Nf)) 3 mg PO BEDTIME [facility] Last Admin: 10/25/16 20:06 Dose: Not Given Multivitamins (Theragran Tab*) 1 tab PO DAILY [facility] Last Admin: 10/26/16 08:35 Dose: Not Given Nicotine Polacrilex (Nicotine Gum*) 2 mg PO Q2H PRN PRN Reason: CRAVING Non Formulary Med* (Melatonin 1mg Tab) 1 admin PO 1700 [facility] Last Admin: 10/25/16 17:00 Dose: Not Given Polyethylene Glycol/Electrolytes (Miralax*) 17 gm PO DAILY [facility] Last Admin: 10/26/16 08:35 Dose: Not Given Risperidone (Risperdal*) 3 mg PO BEDTIME [facility] Last Admin: 10/25/16 20:06 Dose: Not Given Rivaroxaban (Xarelto (*)) 20 mg PO DAILY [facility] Last Admin: 10/26/16 08:35 Dose: Not Given Senna (Senokot Tab*) 1 tab PO BID [facility] Last Admin: 10/26/16 08:35 Dose: Not Given - Discharge Plan Discharge Plan: Outpatient Follow Up
--- NOTE | 2016-10-26 11:51 | PN ---
MHU: Group Therapy Note - Service Type Service Type: [id number] Group Psychotherapy - Cognitive behavioral group note: Immanuel attended programming this morning and was attentive and participatory in discussion. He discussed historical problems with various medications, citing how they often are effective for a few months and then become less effective over time. He did not express paranoid thoughts, but remains defended regarding decisions regarding medications.
[2016-10-26] MEDS: MELATONIN 1 MG PO SCH (18:01)
[2016-10-26] MEDS: clonazePAM TAB(*) 1 MG PO SCH (20:52)
[2016-10-26] MEDS: CMC:Melatonin (NF) 3 MG TAB PO SCH (20:53)
[2016-10-26] MEDS: Lithium Carbonate TAB* 300 MG PO SCH (20:53)
[2016-10-26] MEDS: risperiDONE TAB* 3 MG PO SCH (20:53)
[2016-10-27] MEDS: Benztropine TAB* 1 MG PO SCH ×2 (10:40→20:57)
[2016-10-27] MEDS: Vitamin THERAPEUTIC TAB PO SCH (10:40)
[2016-10-27] MEDS: Losartan TAB* 25 MG PO SCH (10:40)
[2016-10-27] MEDS: Senna TAB PO SCH ×2 (10:40→20:58)
[2016-10-27] MEDS: Rivaroxaban TAB(*) 20 MG TAB PO SCH (10:40)
[2016-10-27] MEDS: Polyethylene Glycol 3350* 17 GM PACKET PO SCH (10:40)
[2016-10-27] MEDS: Calcium/Vitamin D TAB 250/125* TAB PO SCH ×2 (10:40→20:57)
[2016-10-27] MEDS: MELATONIN 1 MG PO SCH (17:45)
[2016-10-27] MEDS: clonazePAM TAB(*) 1 MG PO SCH (20:57)
[2016-10-27] MEDS: risperiDONE TAB* 3 MG PO SCH (20:58)
[2016-10-27] MEDS: CMC:Melatonin (NF) 3 MG TAB PO SCH (20:58)
[2016-10-27] MEDS: Lithium Carbonate TAB* 300 MG PO SCH (20:58)
[2016-10-28] MEDS: Benztropine TAB* 1 MG PO SCH ×2 (09:51→20:05)
[2016-10-28] MEDS: Losartan TAB* 25 MG PO SCH (09:51)
[2016-10-28] MEDS: Polyethylene Glycol 3350* 17 GM PACKET PO SCH (09:51)
[2016-10-28] MEDS: Calcium/Vitamin D TAB 250/125* TAB PO SCH ×2 (09:51→20:05)
[2016-10-28] MEDS: Vitamin THERAPEUTIC TAB PO SCH (09:52)
[2016-10-28] MEDS: Senna TAB PO SCH ×2 (09:52→20:05)
[2016-10-28] MEDS: Rivaroxaban TAB(*) 20 MG TAB PO SCH (09:52)
[2016-10-28] MEDS: Al Hydrox/Mg Hydrox/Simet LIQ* 30 ML UDC PO PRN (09:55)
[2016-10-28] MEDS: MELATONIN 1 MG PO SCH (17:06)
[2016-10-28] MEDS: clonazePAM TAB(*) 1 MG PO SCH (20:05)
[2016-10-28] MEDS: CMC:Melatonin (NF) 3 MG TAB PO SCH (20:05)
[2016-10-28] MEDS: risperiDONE TAB* 3 MG PO SCH (20:05)
[2016-10-28] MEDS: Lithium Carbonate TAB* 300 MG PO SCH (20:05)
[2016-10-29] MEDS: Rivaroxaban TAB(*) 20 MG TAB PO SCH (08:12)
[2016-10-29] MEDS: Losartan TAB* 25 MG PO SCH (08:12)
[2016-10-29] MEDS: Calcium/Vitamin D TAB 250/125* TAB PO SCH ×2 (08:12→19:51)
[2016-10-29] MEDS: Vitamin THERAPEUTIC TAB PO SCH (08:12)
[2016-10-29] MEDS: Benztropine TAB* 1 MG PO SCH ×2 (08:12→19:51)
[2016-10-29] MEDS: Polyethylene Glycol 3350* 17 GM PACKET PO SCH (08:12)
[2016-10-29] MEDS: Senna TAB PO SCH ×2 (08:12→19:51)
[2016-10-29] MEDS: Melatonin (NF) ** ENTER STRENGTH IN LABEL DIRECTIONS PO SCH (16:41)
--- NOTE | 2016-10-29 18:42 | PN ---
Subjective - Subjective Service Type: [id number] Hosp care 15 min low complexity Subjective: Patient is visible in the milieu pacing/walking, noted to be isolative over the weekend. He was again encouraged to take Xarelto for anticoagulation due to increased of [place]/CVA from Afib while not on anticoagulation therapy. Patient has not been compliant with any meds. Patient has attended to ADLs, is up for meals, and is able to verbalize his needs to staff. Patient again declined interview with this provider. Objective - Appearance Appearance: Thin Framed Dysmorphic Features: No Hygiene: Normal Grooming: Fairly Well Kept - Behavior Psychomotor Activities: Normal Exhibits Abnormal Movement: No - Attitude and Relatedness Attitude and Relatedness: Psychotically Related Eye Contact: Poor - Speech Quality: Unpressured Latencies: Normal Quantity: Terse - Mood Patient's Decription of Mood: unable to assess - Affect Observed Affect: Constricted Affect Consistent with: Dysphoria - Thought Process Thought Content: No Passive Wish - unable to assess, No Suicidal Planning - unable to assess, No Homicidal Ideation - unable to assess, No Paranoid Ideation - unable to assess - Sensorium Type of Hallucinations: Visual: No - unable to assess, Auditory: No - unable to assess, Command: No - unable to assess - Level of Consciousness Level of Consciousness: Alert Orientation: Yes Intact, Yes Orientated to Time, Yes Orientated to Place, Yes Orientated to Person - Impulse Control Impulse Control: Intact - Insight and Judgement Insight and Judgement: Impaired - Group Participation Particating in Group Activities: No - Medication Management Medication Management Adherence: No Assessment - Assessment Merits Inpatient Hospitalization: For Immediate Safety, For Stabilization Inpatient DSM-IV Dx: Schizophrenia Plan - Plan Treatment Plan: Name: JESUS BENITEZ Birthdate: 1955 [id number] 1. Continue admission to [facility] for safety and symptom mx. 2. Navane D/C'd due to patient's reported disdain for med and hx of med non- compliance. 3. Continue to encourage med compliance with Risperdal at 3mg po qhs for psychosis with plan to initiate Invega Sustenna prior to discharge. 4. Continue to encourage med compliance with [place] at home dose of 1,200mg po qhs for mood. Patient's [place] level noted to be sub-therapeutic on admission at 0.10. 5. Continue to encourage Xarelto 20mg po daily for anticoagulation therapy dx- Afib. Patient non-compliant on Coumadin and Xarelto provides immediate anticoagulation. 6. Collateral information obtained from PCP-Dr. Sebas Ochoa#[phone] and ACT team. 7. Patient to participate in milieu activities and groups. Continued Medication Management: Different Medication Medications: Current Medications Acetaminophen (Tylenol Tab*) 650 mg PO Q4H PRN PRN Reason: PAIN or TEMP > 101 F Al Hydrox/Mg Hydrox/Simethicone (Maalox Plus*) 30 ml PO Q4H PRN PRN Reason: INDIGESTION Last Admin: 10/28/16 09:55 Dose: 30 ml Benztropine Mesylate (Cogentin Tab*) 1 mg PO BID [facility] Last Admin: 10/29/16 08:12 Dose: Not Given Calcium/Vitamin D (Oscal D Tab 250/125*) 2 tab PO BID [facility] Last Admin: 10/29/16 08:12 Dose: Not Given Clonazepam (Klonopin Tab(*)) 1 mg PO BEDTIME [facility] Last Admin: 10/28/16 20:05 Dose: Not Given [place] Carbonate ([place] Carbonate Tab*) 1,200 mg PO BEDTIME [facility] Last Admin: 10/28/16 20:05 Dose: Not Given Losartan Potassium (Cozaar Tab*) 25 mg PO DAILY [facility] Last Admin: 10/29/16 08:12 Dose: Not Given Melatonin (Melatonin (Nf)) 3 mg PO BEDTIME [facility] Last Admin: 10/28/16 20:05 Dose: Not Given Melatonin (Melatonin (Nf)) 1 tab PO 1700 [facility] Last Admin: 10/29/16 16:41 Dose: Not Given Multi-Ingredient Liniment/Rub (Avel Santiago*) 1 applic TOPICAL TID PRN PRN Reason: MUSCLE ACHE Multivitamins (Theragran Tab*) 1 tab PO DAILY [facility] Last Admin: 10/29/16 08:12 Dose: Not Given Nicotine Polacrilex (Nicotine Gum*) 2 mg PO Q2H PRN PRN Reason: CRAVING Polyethylene Glycol/Electrolytes (Miralax*) 17 gm PO DAILY [facility] Last Admin: 10/29/16 08:12 Dose: Not Given Risperidone (Risperdal*) 3 mg PO BEDTIME [facility] Last Admin: 10/28/16 20:05 Dose: Not Given Rivaroxaban (Xarelto (*)) 20 mg PO DAILY [facility] Last Admin: 10/29/16 08:12 Dose: Not Given Senna (Senokot Tab*) 1 tab PO BID [facility] Last Admin: 10/29/16 08:12 Dose: Not Given - Discharge Plan Discharge Plan: Outpatient Follow Up Outpatient Program: ACT team
[2016-10-29] MEDS: CMC:Melatonin (NF) 3 MG TAB PO SCH (19:51)
[2016-10-29] MEDS: risperiDONE TAB* 3 MG PO SCH (19:51)
[2016-10-29] MEDS: clonazePAM TAB(*) 1 MG PO SCH (19:51)
[2016-10-29] MEDS: Lithium Carbonate TAB* 300 MG PO SCH (19:51)
[2016-10-30] MEDS: Calcium/Vitamin D TAB 250/125* TAB PO SCH ×2 (08:44→22:07)
[2016-10-30] MEDS: Benztropine TAB* 1 MG PO SCH ×2 (08:44→22:07)
[2016-10-30] MEDS: Losartan TAB* 25 MG PO SCH (08:44)
[2016-10-30] MEDS: Polyethylene Glycol 3350* 17 GM PACKET PO SCH (08:45)
[2016-10-30] MEDS: Vitamin THERAPEUTIC TAB PO SCH (08:45)
[2016-10-30] MEDS: Senna TAB PO SCH ×2 (08:45→22:07)
[2016-10-30] MEDS: Rivaroxaban TAB(*) 20 MG TAB PO SCH (08:45)
--- NOTE | 2016-10-30 10:11 | PN ---
Subjective - Subjective Service Type: 48091 Hosp care 15 min low complexity Subjective: Patient is visible in the milieu pacing/walking. Still no interactions with peers, patient still refuses conversing with staff and this provider. He was again encouraged to take Xarelto for anticoagulation due to increased of VT/CVA from Afib while not on anticoagulation therapy. Patient has not been compliant with any meds. Patient has attended to ADLs, is up for meals, and is able to verbalize his needs to staff. Patient noted to be getting good sleep. Objective - Appearance Appearance: Well Developed/Nourished, Thin Framed Dysmorphic Features: No Hygiene: Normal Grooming: Fairly Well Kept - Behavior Psychomotor Activities: Normal Exhibits Abnormal Movement: No - Attitude and Relatedness Attitude and Relatedness: Psychotically Related Eye Contact: Poor - Speech Quality: Unpressured Latencies: Normal Quantity: Terse - Mood Patient's Decription of Mood: unable to assess - Affect Observed Affect: Depressed Affect Consistent with: Dysphoria - Thought Process Patient's Thought Process: Impoverished Thought Content: No Passive Wish - unable to assess, No Suicidal Planning - unable to assess, No Homicidal Ideation - unable to assess, No Paranoid Ideation - unable to assess - Sensorium Experiencing Hallucinations: No, Sensorium is Clear Type of Hallucinations: Visual: No - unable to assess, Auditory: No - unable to assess, Command: No - unable to assess - Level of Consciousness Level of Consciousness: Alert Orientation: Yes Intact, Yes Orientated to Time, Yes Orientated to Place, Yes Orientated to Person - Impulse Control Impulse Control: Impaired - Insight and Judgement Insight and Judgement: Impaired - Group Participation Particating in Group Activities: No - Medication Management Medication Management Adherence: No Assessment - Assessment Merits Inpatient Hospitalization: For Immediate Safety, For Stabilization Inpatient DSM-IV Dx: Schizophrenia Plan - Plan Treatment Plan: Name: JESUS BENITEZ Birthdate: 1955 [id number] 1. Continue admission to [facility] for safety and symptom mx. 2. Navane D/C'd due to patient's reported disdain for med and hx of med non- compliance. 3. Patient has been med non-compliant and symptomatic since admission. Hearing for treatment over objection scheduled for 11/02/16 at 9am. 4. Continue to encourage med compliance with Risperdal at 3mg po qhs for psychosis with plan to initiate Invega Sustenna prior to discharge. 5. Continue to encourage med compliance with [place] at home dose of 1,200mg po qhs for mood. Patient's [place] level noted to be sub-therapeutic on admission at 0.10. 6. Continue to encourage Xarelto 20mg po daily for anticoagulation therapy dx- Afib. Patient non-compliant on Coumadin and Xarelto provides immediate anticoagulation. 7. Collateral information obtained from PCP-Dr. Sebas Ochoa#[phone] and ACT team. 8. Patient to participate in milieu activities and groups. Medications: Current Medications Acetaminophen (Tylenol Tab*) 650 mg PO Q4H PRN PRN Reason: PAIN or TEMP > 101 F Al Hydrox/Mg Hydrox/Simethicone (Maalox Plus*) 30 ml PO Q4H PRN PRN Reason: INDIGESTION Last Admin: 10/28/16 09:55 Dose: 30 ml Benztropine Mesylate (Cogentin Tab*) 1 mg PO BID [facility] Last Admin: 10/30/16 08:44 Dose: Not Given Calcium/Vitamin D (Oscal D Tab 250/125*) 2 tab PO BID [facility] Last Admin: 10/30/16 08:44 Dose: Not Given Clonazepam (Klonopin Tab(*)) 1 mg PO BEDTIME [facility] Last Admin: 10/29/16 19:51 Dose: Not Given [place] Carbonate ([place] Carbonate Tab*) 1,200 mg PO BEDTIME [facility] Last Admin: 10/29/16 19:51 Dose: Not Given Losartan Potassium (Cozaar Tab*) 25 mg PO DAILY [facility] Last Admin: 10/30/16 08:44 Dose: Not Given Melatonin (Melatonin (Nf)) 3 mg PO BEDTIME [facility] Last Admin: 10/29/16 19:51 Dose: Not Given Melatonin (Melatonin (Nf)) 1 tab PO 1700 [facility] Last Admin: 10/29/16 16:41 Dose: Not Given Multi-Ingredient Liniment/Rub (Avel Santiago*) 1 applic TOPICAL TID PRN PRN Reason: MUSCLE ACHE Multivitamins (Theragran Tab*) 1 tab PO DAILY [facility] Last Admin: 10/30/16 08:45 Dose: Not Given Nicotine Polacrilex (Nicotine Gum*) 2 mg PO Q2H PRN PRN Reason: CRAVING Polyethylene Glycol/Electrolytes (Miralax*) 17 gm PO DAILY [facility] Last Admin: 10/30/16 08:45 Dose: Not Given Risperidone (Risperdal*) 3 mg PO BEDTIME [facility] Last Admin: 10/29/16 19:51 Dose: Not Given Rivaroxaban (Xarelto (*)) 20 mg PO DAILY [facility] Last Admin: 10/30/16 08:45 Dose: Not Given Senna (Senokot Tab*) 1 tab PO BID [facility] Last Admin: 10/30/16 08:45 Dose: Not Given
[2016-10-30] MEDS: Analgesic BALM* 114 GM TOPICAL PRN (11:32)
[2016-10-30] MEDS: Melatonin (NF) ** ENTER STRENGTH IN LABEL DIRECTIONS PO SCH (17:38)
[2016-10-30] MEDS: risperiDONE TAB* 3 MG PO SCH (22:07)
[2016-10-30] MEDS: CMC:Melatonin (NF) 3 MG TAB PO SCH (22:07)
[2016-10-30] MEDS: clonazePAM TAB(*) 1 MG PO SCH (22:07)
[2016-10-30] MEDS: Lithium Carbonate TAB* 300 MG PO SCH (22:07)
--- NOTE | 2016-10-31 10:19 | PN ---
Subjective - Subjective Service Type: 39121 Hosp care 15 min low complexity Subjective: Patient is visible in the milieu pacing/walking. He was again encouraged to take Xarelto for anticoagulation due to increased of [place]/CVA from Afib while not on anticoagulation therapy. Patient has not been compliant with any meds. Patient has attended to ADLs, is up for meals, and is able to verbalize his needs to staff. Patient is noted to have fair appetite and sleep. Objective - Appearance Appearance: Well Developed/Nourished, Thin Framed Dysmorphic Features: No Hygiene: Normal Grooming: Fairly Well Kept - Behavior Psychomotor Activities: Normal Exhibits Abnormal Movement: No - Attitude and Relatedness Attitude and Relatedness: Psychotically Related Eye Contact: Poor - Affect Observed Affect: Depressed Affect Consistent with: Dysphoria - Thought Process Thought Content: No Passive Wish - unable to sense, No Suicidal Planning - unable to sense, No Homicidal Ideation - unable to sense, No Paranoid Ideation - unable to sense - Sensorium Type of Hallucinations: Visual: No - unable to sense, Auditory: No - unable to sense, Command: No - unable to sense - Level of Consciousness Level of Consciousness: Alert Orientation: No Intact, No Orientated to Time, No Orientated to Place, No Orientated to Person - Impulse Control Impulse Control: Impaired - Insight and Judgement Insight and Judgement: Impaired - Group Participation Particating in Group Activities: No - Medication Management Medication Management Adherence: No Assessment - Assessment Merits Inpatient Hospitalization: For Immediate Safety, For Stabilization Inpatient DSM-IV Dx: Schizophrenia Plan - Plan Treatment Plan: Name: JESUS BENITEZ Birthdate: 1955 [id number] 1. Continue admission to [facility] for safety and symptom mx. 2. Navane D/C'd due to patient's reported disdain for med and hx of med non- compliance. 3. Patient has been med non-compliant and symptomatic since admission. Hearing for treatment over objection scheduled for 11/02/16 at 9am. 4. Continue to encourage med compliance with Risperdal at 3mg po qhs for psychosis with plan to initiate Invega Sustenna prior to discharge. 5. Continue to encourage med compliance with [place] at home dose of 1,200mg po qhs for mood. Patient's [place] level noted to be sub-therapeutic on admission at 0.10. 6. Continue to encourage Xarelto 20mg po daily for anticoagulation therapy dx- Afib. Patient non-compliant on Coumadin and Xarelto provides immediate anticoagulation. 7. Collateral information obtained from PCP-Dr. Sebas Ochoa#[phone] and ACT team. 8. Patient to participate in milieu activities and groups. Medications: Current Medications Acetaminophen (Tylenol Tab*) 650 mg PO Q4H PRN PRN Reason: PAIN or TEMP > 101 F Al Hydrox/Mg Hydrox/Simethicone (Maalox Plus*) 30 ml PO Q4H PRN PRN Reason: INDIGESTION Last Admin: 10/28/16 09:55 Dose: 30 ml Benztropine Mesylate (Cogentin Tab*) 1 mg PO BID [facility] Last Admin: 10/30/16 22:07 Dose: Not Given Calcium/Vitamin D (Oscal D Tab 250/125*) 2 tab PO BID [facility] Last Admin: 10/30/16 22:07 Dose: Not Given Clonazepam (Klonopin Tab(*)) 1 mg PO BEDTIME [facility] Last Admin: 10/30/16 22:07 Dose: Not Given [place] Carbonate ([place] Carbonate Tab*) 1,200 mg PO BEDTIME [facility] Last Admin: 10/30/16 22:07 Dose: Not Given Losartan Potassium (Cozaar Tab*) 25 mg PO DAILY [facility] Last Admin: 10/30/16 08:44 Dose: Not Given Melatonin (Melatonin (Nf)) 3 mg PO BEDTIME [facility] Last Admin: 10/30/16 22:07 Dose: Not Given Melatonin (Melatonin (Nf)) 1 tab PO 1700 [facility] Last Admin: 10/30/16 17:38 Dose: Not Given Multi-Ingredient Liniment/Rub (Avel Santiago*) 1 applic TOPICAL TID PRN PRN Reason: MUSCLE ACHE Last Admin: 10/30/16 11:32 Dose: 1 applic Multivitamins (Theragran Tab*) 1 tab PO DAILY [facility] Last Admin: 10/30/16 08:45 Dose: Not Given Nicotine Polacrilex (Nicotine Gum*) 2 mg PO Q2H PRN PRN Reason: CRAVING Polyethylene Glycol/Electrolytes (Miralax*) 17 gm PO DAILY [facility] Last Admin: 10/30/16 08:45 Dose: Not Given Risperidone (Risperdal*) 3 mg PO BEDTIME [facility] Last Admin: 10/30/16 22:07 Dose: Not Given Rivaroxaban (Xarelto (*)) 20 mg PO DAILY [facility] Last Admin: 10/30/16 08:45 Dose: Not Given Senna (Senokot Tab*) 1 tab PO BID [facility] Last Admin: 10/30/16 22:07 Dose: Not Given - Discharge Plan Discharge Plan: Outpatient Follow Up
[2016-10-31] MEDS: Losartan TAB* 25 MG PO SCH (10:57)
[2016-10-31] MEDS: Benztropine TAB* 1 MG PO SCH ×2 (10:57→20:19)
[2016-10-31] MEDS: Calcium/Vitamin D TAB 250/125* TAB PO SCH ×2 (10:57→20:20)
[2016-10-31] MEDS: Vitamin THERAPEUTIC TAB PO SCH (10:58)
[2016-10-31] MEDS: Polyethylene Glycol 3350* 17 GM PACKET PO SCH (10:58)
[2016-10-31] MEDS: Senna TAB PO SCH ×2 (10:58→20:20)
[2016-10-31] MEDS: Rivaroxaban TAB(*) 20 MG TAB PO SCH (10:58)
[2016-10-31] MEDS: Melatonin (NF) ** ENTER STRENGTH IN LABEL DIRECTIONS PO SCH (17:31)
[2016-10-31] MEDS: Lithium Carbonate TAB* 300 MG PO SCH (20:20)
[2016-10-31] MEDS: risperiDONE TAB* 3 MG PO SCH (20:20)
[2016-10-31] MEDS: clonazePAM TAB(*) 1 MG PO SCH (20:20)
[2016-10-31] MEDS: CMC:Melatonin (NF) 3 MG TAB PO SCH (20:20)
[2016-11-01] MEDS: Rivaroxaban TAB(*) 20 MG TAB PO SCH (09:06)
[2016-11-01] MEDS: Senna TAB PO SCH ×2 (09:06→21:31)
[2016-11-01] MEDS: Calcium/Vitamin D TAB 250/125* TAB PO SCH ×2 (09:06→21:30)
[2016-11-01] MEDS: Benztropine TAB* 1 MG PO SCH ×2 (09:06→21:30)
[2016-11-01] MEDS: Polyethylene Glycol 3350* 17 GM PACKET PO SCH (09:06)
[2016-11-01] MEDS: Vitamin THERAPEUTIC TAB PO SCH (09:06)
[2016-11-01] MEDS: Losartan TAB* 25 MG PO SCH (09:06)
--- NOTE | 2016-11-01 15:02 | PN ---
Subjective - Subjective Service Type: [id number] Hosp care 15 min low complexity Subjective: Patient is visible in the milieu pacing/walking. Still no interactions with peers, patient still refuses conversing with staff and this provider. He was again encouraged to take Xarelto for anticoagulation due to increased of [place]/CVA from Afib while not on anticoagulation therapy. Patient has not been compliant with any meds. Patient is able to verbalize his needs to staff. Objective - Appearance Appearance: Well Developed/Nourished, Thin Framed Dysmorphic Features: No Hygiene: Normal Grooming: Fairly Well Kept - Behavior Psychomotor Activities: Normal Exhibits Abnormal Movement: No - Attitude and Relatedness Attitude and Relatedness: Psychotically Related Eye Contact: Poor - Affect Observed Affect: Depressed Affect Consistent with: Dysphoria - Thought Process Thought Content: No Passive Wish - unable to assess, No Suicidal Planning - unable to assess, No Homicidal Ideation - unable to assess, No Paranoid Ideation - unable to assess - Sensorium Type of Hallucinations: Visual: No - unable to assess, Auditory: No - unable to assess, Command: No - unable to assess - Level of Consciousness Level of Consciousness: Alert Orientation: No Intact, No Orientated to Time, No Orientated to Place, No Orientated to Person - Impulse Control Impulse Control: Impaired - Insight and Judgement Insight and Judgement: Impaired - Group Participation Particating in Group Activities: No - Medication Management Medication Management Adherence: No Assessment - Assessment Merits Inpatient Hospitalization: For Immediate Safety, For Stabilization Inpatient DSM-IV Dx: Schizophrenia Plan - Plan Treatment Plan: Name: JESUS BENITEZ Birthdate: 1955 [id number] 1. Continue admission to [facility] for safety and symptom mx. 2. Navane D/C'd due to patient's reported disdain for med and hx of med non- compliance. 3. Patient has been med non-compliant and symptomatic since admission. Hearing for treatment over objection scheduled for 11/02/16 at 9am. 4. Continue to encourage med compliance with Risperdal at 3mg po qhs for psychosis with plan to initiate Invega Sustenna prior to discharge. 5. Continue to encourage med compliance with [place] at home dose of 1,200mg po qhs for mood. Patient's [place] level noted to be sub-therapeutic on admission at 0.10. 6. Continue encouraged to take Xarelto 20mg po daily for anticoagulation therapy dx-Afib. Patient non-compliant on Coumadin and Xarelto provides immediate anticoagulation. 7. Collateral information obtained from PCP-Dr. Sebas Ochoa#[phone] and ACT team. 8. Patient to participate in milieu activities and groups. Medications: Current Medications Acetaminophen (Tylenol Tab*) 650 mg PO Q4H PRN PRN Reason: PAIN or TEMP > 101 F Al Hydrox/Mg Hydrox/Simethicone (Maalox Plus*) 30 ml PO Q4H PRN PRN Reason: INDIGESTION Last Admin: 10/28/16 09:55 Dose: 30 ml Benztropine Mesylate (Cogentin Tab*) 1 mg PO BID [facility] Last Admin: 11/01/16 09:06 Dose: Not Given Calcium/Vitamin D (Oscal D Tab 250/125*) 2 tab PO BID [facility] Last Admin: 11/01/16 09:06 Dose: Not Given Clonazepam (Klonopin Tab(*)) 1 mg PO BEDTIME [facility] Last Admin: 10/31/16 20:20 Dose: Not Given [place] Carbonate ([place] Carbonate Tab*) 1,200 mg PO BEDTIME [facility] Last Admin: 10/31/16 20:20 Dose: Not Given Losartan Potassium (Cozaar Tab*) 25 mg PO DAILY [facility] Last Admin: 11/01/16 09:06 Dose: Not Given Melatonin (Melatonin (Nf)) 3 mg PO BEDTIME [facility] Last Admin: 10/31/16 20:20 Dose: Not Given Melatonin (Melatonin (Nf)) 1 tab PO 1700 [facility] Last Admin: 10/31/16 17:31 Dose: Not Given Multi-Ingredient Liniment/Rub (Avel Santiago*) 1 applic TOPICAL TID PRN PRN Reason: MUSCLE ACHE Last Admin: 10/30/16 11:32 Dose: 1 applic Multivitamins (Theragran Tab*) 1 tab PO DAILY [facility] Last Admin: 11/01/16 09:06 Dose: Not Given Nicotine Polacrilex (Nicotine Gum*) 2 mg PO Q2H PRN PRN Reason: CRAVING Polyethylene Glycol/Electrolytes (Miralax*) 17 gm PO DAILY [facility] Last Admin: 11/01/16 09:06 Dose: Not Given Risperidone (Risperdal*) 3 mg PO BEDTIME [facility] Last Admin: 10/31/16 20:20 Dose: Not Given Rivaroxaban (Xarelto (*)) 20 mg PO DAILY [facility] Last Admin: 11/01/16 09:06 Dose: Not Given Senna (Senokot Tab*) 1 tab PO BID [facility] Last Admin: 11/01/16 09:06 Dose: Not Given - Discharge Plan Discharge Plan: Outpatient Follow Up
[2016-11-01] MEDS: Melatonin (NF) ** ENTER STRENGTH IN LABEL DIRECTIONS PO SCH (17:12)
[2016-11-01] MEDS: clonazePAM TAB(*) 1 MG PO SCH (21:30)
[2016-11-01] MEDS: Lithium Carbonate TAB* 300 MG PO SCH (21:31)
[2016-11-01] MEDS: risperiDONE TAB* 3 MG PO SCH (21:31)
[2016-11-01] MEDS: CMC:Melatonin (NF) 3 MG TAB PO SCH (21:31)
[2016-11-02] MEDS: Calcium/Vitamin D TAB 250/125* TAB PO SCH ×2 (09:17→20:38)
[2016-11-02] MEDS: Benztropine TAB* 1 MG PO SCH ×2 (09:17→20:38)
[2016-11-02] MEDS: Polyethylene Glycol 3350* 17 GM PACKET PO SCH (09:18)
[2016-11-02] MEDS: Senna TAB PO SCH ×2 (09:18→20:39)
[2016-11-02] MEDS: Vitamin THERAPEUTIC TAB PO SCH (09:18)
[2016-11-02] MEDS: Rivaroxaban TAB(*) 20 MG TAB PO SCH (09:18)
[2016-11-02] MEDS: Losartan TAB* 25 MG PO SCH (09:18)
--- NOTE | 2016-11-02 11:52 | PN ---
Subjective - Subjective Service Type: 80592 Hosp care 15 min low complexity Subjective: Patient withdrawn with sullen affect in TOO hearing this morning. Patient has attended to ADLs, is up for meals, and is able to verbalize his needs to staff. Patient is noted to have good appetite and getting good sleep. Baseline labs obtained. Patient was compliant with current med regimen Rx'd and now court ordered. Objective - Appearance Appearance: Well Developed/Nourished Dysmorphic Features: No Hygiene: Normal Grooming: Fairly Well Kept - Behavior Psychomotor Activities: Normal Exhibits Abnormal Movement: No - Attitude and Relatedness Attitude and Relatedness: Minimally Cooperative Eye Contact: Poor - Speech Quality: Unpressured Latencies: Normal Quantity: Terse - Mood Patient's Decription of Mood: "Irritable" - Affect Observed Affect: Depressed Affect Consistent with: Dysphoria - Thought Process Patient's Thought Process: Impoverished Thought Content: No Passive Wish - unable to assess, No Suicidal Planning - unable to assess, No Homicidal Ideation - unable to assess, No Paranoid Ideation - unable to assess - Sensorium Type of Hallucinations: Visual: No - unable to assess, Auditory: No - unable to assess, Command: No - unable to assess - Level of Consciousness Level of Consciousness: Alert Orientation: Yes Intact, Yes Orientated to Time, Yes Orientated to Place, Yes Orientated to Person - Impulse Control Impulse Control: Impaired - Insight and Judgement Insight and Judgement: Impaired - Group Participation Particating in Group Activities: No - Medication Management Medication Management Adherence: Yes Assessment - Assessment Merits Inpatient Hospitalization: For Immediate Safety, For Stabilization Inpatient DSM-IV Dx: Schizophrenia Plan - Plan Treatment Plan: Name: JESUS BENITEZ Birthdate: 1955 [id number] 1. Continue admission to [facility] for safety and symptom mx. 2. Navane D/C'd due to patient's reported disdain for med and hx of med non- compliance. 3. Hearing for treatment over objection completed 11/02/16. 4. Continue TOO Risperdal at 3mg po qhs for psychosis with plan to initiate Invega Sustenna prior to discharge. 5. Continue TOO [place] at 600mg po qhs for mood stabilization/augmentation. 6. Continue TOO Xarelto 20mg po daily for anticoagulation therapy dx-Afib. 7. Collateral information obtained from PCP-Dr. Sebas Ochoa#[phone] and ACT team. 8. Patient to participate in milieu activities and groups. Medications: Current Medications Acetaminophen (Tylenol Tab*) 650 mg PO Q4H PRN PRN Reason: PAIN or TEMP > 101 F Al Hydrox/Mg Hydrox/Simethicone (Maalox Plus*) 30 ml PO Q4H PRN PRN Reason: INDIGESTION Last Admin: 10/28/16 09:55 Dose: 30 ml Benztropine Mesylate (Cogentin Tab*) 1 mg PO BID [facility] Last Admin: 11/02/16 09:17 Dose: Not Given Calcium/Vitamin D (Oscal D Tab 250/125*) 2 tab PO BID [facility] Last Admin: 11/02/16 09:17 Dose: Not Given Clonazepam (Klonopin Tab(*)) 1 mg PO BEDTIME [facility] Last Admin: 11/01/16 21:30 Dose: Not Given [place] Carbonate ([place] Carbonate Tab*) 1,200 mg PO BEDTIME [facility] Last Admin: 11/01/16 21:31 Dose: Not Given Losartan Potassium (Cozaar Tab*) 25 mg PO DAILY [facility] Last Admin: 11/02/16 09:18 Dose: Not Given Melatonin (Melatonin (Nf)) 3 mg PO BEDTIME [facility] Last Admin: 11/01/16 21:31 Dose: Not Given Melatonin (Melatonin (Nf)) 1 tab PO 1700 [facility] Last Admin: 11/01/16 17:12 Dose: Not Given Multi-Ingredient Liniment/Rub (Avel Santiago*) 1 applic TOPICAL TID PRN PRN Reason: MUSCLE ACHE Last Admin: 10/30/16 11:32 Dose: 1 applic Multivitamins (Theragran Tab*) 1 tab PO DAILY [facility] Last Admin: 11/02/16 09:18 Dose: Not Given Nicotine Polacrilex (Nicotine Gum*) 2 mg PO Q2H PRN PRN Reason: CRAVING Polyethylene Glycol/Electrolytes (Miralax*) 17 gm PO DAILY [facility] Last Admin: 11/02/16 09:18 Dose: Not Given Risperidone (Risperdal*) 3 mg PO BEDTIME [facility] Last Admin: 11/01/16 21:31 Dose: Not Given Rivaroxaban (Xarelto (*)) 20 mg PO DAILY [facility] Last Admin: 11/02/16 09:18 Dose: Not Given Senna (Senokot Tab*) 1 tab PO BID [facility] Last Admin: 11/02/16 09:18 Dose: Not Given - Discharge Plan Discharge Plan: Outpatient Follow Up
[2016-11-02 18:22] LABS: Hematocrit 42 % (42-52); Hemoglobin 14.8 g/dl (14.0-18.0); Mean Corpuscular HGB Conc 36 g/dl (31-36); Mean Corpuscular Hemoglobin 34 pg (27-31); Mean Corpuscular Volume 96 fL (80-94); Mean Platelet Volume 9 um3 (7.4-10.4); Red Cell Distribution Width 13 % (10.5-15); White Blood Count 8.2 10^3/ul (3.5-10.8)
[2016-11-02 18:29] LABS: ALT 20 U/L (7-52); Alkaline Phosphatase 70 U/L (34-104); BUN/Creatinine Ratio 21.7 (8-20); Blood Urea Nitrogen 18 mg/dL (6-24); CO2 Carbon Dioxide 26 mmol/L (22-32); Calcium 9.4 mg/dL (8.6-10.3); Chloride 104 mmol/L (101-111); Cholesterol 157 mg/dL; EGFR African American 121.1 (>60); EGFR Non-African American 94.2 (>60); Globulin 2.8 g/dL (2-4); Glucose 104 mg/dL (70-100); HDL Cholesterol 49.2 mg/dL; LDL Cholesterol 69 mg/dL; Sodium 135 mmol/L (133-145); Total Protein 6.8 g/dL (6.4-8.9); Triglycerides 194 mg/dL
[2016-11-02 19:06] LABS: Anion Gap 5 mmol/L (2-11)
[2016-11-02] MEDS: Lithium Carbonate TAB* 300 MG PO SCH (20:37)
[2016-11-02] MEDS: risperiDONE TAB* 3 MG PO SCH (20:38)
[2016-11-02] MEDS: clonazePAM TAB(*) 1 MG PO SCH (20:39)
[2016-11-02] MEDS: CMC:Melatonin (NF) 3 MG TAB PO SCH (20:39)
[2016-11-03] MEDS: Rivaroxaban TAB(*) 20 MG TAB PO SCH (09:30)
[2016-11-03] MEDS: Benztropine TAB* 1 MG PO SCH ×2 (09:30→20:55)
[2016-11-03] MEDS: Losartan TAB* 25 MG PO SCH (09:31)
[2016-11-03] MEDS: Senna TAB PO SCH ×2 (09:31→20:58)
[2016-11-03] MEDS: Vitamin THERAPEUTIC TAB PO SCH (09:31)
[2016-11-03] MEDS: Polyethylene Glycol 3350* 17 GM PACKET PO SCH (09:31)
[2016-11-03] MEDS: Calcium/Vitamin D TAB 250/125* TAB PO SCH ×2 (09:31→20:56)
[2016-11-03] MEDS: Lithium Carbonate TAB* 300 MG PO SCH (20:54)
[2016-11-03] MEDS: risperiDONE TAB* 3 MG PO SCH (20:55)
[2016-11-03] MEDS: clonazePAM TAB(*) 1 MG PO SCH (20:56)
[2016-11-03] MEDS: CMC:Melatonin (NF) 3 MG TAB PO SCH (20:56)
[2016-11-04] MEDS: Rivaroxaban TAB(*) 20 MG TAB PO SCH (08:04)
[2016-11-04] MEDS: Benztropine TAB* 1 MG PO SCH ×2 (08:05→19:55)
[2016-11-04] MEDS: Vitamin THERAPEUTIC TAB PO SCH (08:06)
[2016-11-04] MEDS: Polyethylene Glycol 3350* 17 GM PACKET PO SCH (08:06)
[2016-11-04] MEDS: Losartan TAB* 25 MG PO SCH (08:06)
[2016-11-04] MEDS: Senna TAB PO SCH ×2 (08:06→20:00)
[2016-11-04] MEDS: Calcium/Vitamin D TAB 250/125* TAB PO SCH ×2 (08:06→20:00)
[2016-11-04] MEDS: risperiDONE TAB* 3 MG PO SCH (19:54)
[2016-11-04] MEDS: Lithium Carbonate TAB* 300 MG PO SCH (19:54)
[2016-11-04] MEDS: clonazePAM TAB(*) 1 MG PO SCH (19:54)
[2016-11-04] MEDS: CMC:Melatonin (NF) 3 MG TAB PO SCH (20:00)
[2016-11-05] MEDS: Benztropine TAB* 1 MG PO SCH ×2 (09:09→20:11)
[2016-11-05] MEDS: Polyethylene Glycol 3350* 17 GM PACKET PO SCH (09:10)
[2016-11-05] MEDS: Rivaroxaban TAB(*) 20 MG TAB PO SCH (09:10)
[2016-11-05] MEDS: Losartan TAB* 25 MG PO SCH (09:10)
[2016-11-05] MEDS: Calcium/Vitamin D TAB 250/125* TAB PO SCH ×2 (09:10→20:16)
[2016-11-05] MEDS: Vitamin THERAPEUTIC TAB PO SCH (09:11)
[2016-11-05] MEDS: Senna TAB PO SCH ×2 (09:11→20:16)
--- NOTE | 2016-11-05 12:11 | PN ---
Subjective - Subjective Service Type: 41592 Hosp care 15 min low complexity Subjective: Patient paranoid, somewhat uncooperative, although he has been taking meds over the weekend. Requests staff pass. When asked about his anticoagulant, Xeralto , he responds "I'm on an antipsychotic, not an anticoagulant" and storms away. Objective - Appearance Appearance: Well Developed/Nourished Dysmorphic Features: No Hygiene: Normal Grooming: Well Kept - Behavior Psychomotor Activities: Normal Exhibits Abnormal Movement: No - Attitude and Relatedness Attitude and Relatedness: Dismissive Eye Contact: Poor - Speech Quality: Unpressured Latencies: Normal Quantity: Terse - Mood Patient's Decription of Mood: "Fine" - Affect Observed Affect: Fair Affect Consistent with: Euthymia - Thought Process Patient's Thought Process: Circumstantial Thought Content: Yes Paranoid Ideation, No Passive Wish, No Suicidal Planning, No Homicidal Ideation - Sensorium Experiencing Hallucinations: No, Sensorium is Clear Type of Hallucinations: Visual: No, Auditory: No, Command: No - Level of Consciousness Level of Consciousness: Alert Orientation: Yes Intact, Yes Orientated to Time, Yes Orientated to Place, Yes Orientated to Person - Impulse Control Impulse Control: Tenuous - Insight and Judgement Insight and Judgement: Fair - Group Participation Particating in Group Activities: No - Medication Management Medication Management Adherence: Yes Assessment - Assessment Merits Inpatient Hospitalization: For Immediate Safety, For Stabilization Inpatient DSM-IV Dx: Schizophrenia Clinical Impression: 61 y.o. single, white male with persistent and severe psychotic disorder, brought in by police after violating the AOT order secondary to refusing medications or to follow up with the ACT team, resulting in resumption of psychotic symptoms and inability to care for himself. Plan - Plan Treatment Plan: Name: JESUS BENITEZ Birthdate: 1955 [id number] Patient back on outpatient meds. Will check PT/PTT/INR as well as metabolic labs. Continue inpatient treatment in secured setting. Continued Medication Management: Continue Outpt Medication Medications: Current Medications Acetaminophen (Tylenol Tab*) 650 mg PO Q4H PRN PRN Reason: PAIN or TEMP > 101 F Al Hydrox/Mg Hydrox/Simethicone (Maalox Plus*) 30 ml PO Q4H PRN PRN Reason: INDIGESTION Last Admin: 10/28/16 09:55 Dose: 30 ml Benztropine Mesylate (Cogentin Tab*) 1 mg PO BID [facility] Last Admin: 11/05/16 09:09 Dose: 1 mg Calcium/Vitamin D (Oscal D Tab 250/125*) 2 tab PO BID [facility] Last Admin: 11/05/16 09:10 Dose: Not Given Clonazepam (Klonopin Tab(*)) 1 mg PO BEDTIME [facility] Last Admin: 11/04/16 19:54 Dose: 1 mg [place] Carbonate ([place] Carbonate Tab*) 600 mg PO BEDTIME [facility] Last Admin: 11/04/16 19:54 Dose: 600 mg Losartan Potassium (Cozaar Tab*) 25 mg PO DAILY [facility] Last Admin: 11/05/16 09:10 Dose: Not Given Melatonin (Melatonin (Nf)) 3 mg PO BEDTIME [facility] Last Admin: 11/04/16 20:00 Dose: Not Given Multi-Ingredient Liniment/Rub (Avel Santiago*) 1 applic TOPICAL TID PRN PRN Reason: MUSCLE ACHE Last Admin: 10/30/16 11:32 Dose: 1 applic Multivitamins (Theragran Tab*) 1 tab PO DAILY [facility] Last Admin: 11/05/16 09:11 Dose: Not Given Nicotine Polacrilex (Nicotine Gum*) 2 mg PO Q2H PRN PRN Reason: CRAVING Polyethylene Glycol/Electrolytes (Miralax*) 17 gm PO DAILY [facility] Last Admin: 11/05/16 09:10 Dose: Not Given Risperidone (Risperdal*) 3 mg PO BEDTIME [facility] Last Admin: 11/04/16 19:54 Dose: 3 mg Rivaroxaban (Xarelto (*)) 20 mg PO DAILY [facility] Last Admin: 11/05/16 09:10 Dose: 20 mg Senna (Senokot Tab*) 1 tab PO BID [facility] Last Admin: 11/05/16 09:11 Dose: Not Given - Discharge Plan Discharge Plan: Inpatient Hospitalization
[2016-11-05] MEDS: risperiDONE TAB* 3 MG PO SCH (20:11)
[2016-11-05] MEDS: Lithium Carbonate TAB* 300 MG PO SCH (20:11)
[2016-11-05] MEDS: CMC:Melatonin (NF) 3 MG TAB PO SCH (20:16)
[2016-11-05] MEDS: clonazePAM TAB(*) 1 MG PO SCH (20:17)
[2016-11-06] MEDS: Benztropine TAB* 1 MG PO SCH ×2 (08:55→20:15)
[2016-11-06] MEDS: Losartan TAB* 25 MG PO SCH (08:57)
[2016-11-06] MEDS: Calcium/Vitamin D TAB 250/125* TAB PO SCH ×2 (08:57→20:17)
[2016-11-06] MEDS: Polyethylene Glycol 3350* 17 GM PACKET PO SCH (08:57)
[2016-11-06] MEDS: Senna TAB PO SCH ×2 (08:58→20:17)
[2016-11-06] MEDS: Rivaroxaban TAB(*) 20 MG TAB PO SCH (08:58)
[2016-11-06] MEDS: Vitamin THERAPEUTIC TAB PO SCH (08:58)
[2016-11-06] MEDS: Al Hydrox/Mg Hydrox/Simet LIQ* 30 ML UDC PO PRN (14:06)
--- NOTE | 2016-11-06 14:43 | PN ---
Subjective - Subjective Service Type: 72377 Hosp care 15 min low complexity Subjective: Patient visible in the milieu. Patient isolated and does not attend groups. Patient not interested in talking to this provider. This provider stated to the patient, "I don't understand why you don't talk to me". Patient replied,"You know what you've done to me". Patient then walked away from the conversation. Patient noted to be up for meals and performing ADLs without prompting. Patient has been med compliant since court last Saturday. Objective - Appearance Appearance: Well Developed/Nourished, Thin Framed Dysmorphic Features: No Hygiene: Normal Grooming: Fairly Well Kept - Behavior Psychomotor Activities: Normal Exhibits Abnormal Movement: No - Attitude and Relatedness Attitude and Relatedness: Psychotically Related Eye Contact: Poor - Speech Quality: Unpressured Latencies: Normal Quantity: Terse - Mood Patient's Decription of Mood: unable to assess - Affect Observed Affect: Tense Affect Consistent with: Dysphoria - Thought Process Patient's Thought Process: Coherent Thought Content: No Passive Wish - unable to assess, No Suicidal Planning - unable to assess, No Homicidal Ideation - unable to assess, No Paranoid Ideation - unable to assess - Sensorium Experiencing Hallucinations: No, Sensorium is Clear Type of Hallucinations: Visual: No - unable to assess, Auditory: No - unable to assess, Command: No - unable to assess - Level of Consciousness Level of Consciousness: Alert Orientation: Yes Intact, Yes Orientated to Time, Yes Orientated to Place, Yes Orientated to Person - Impulse Control Impulse Control: Intact - Insight and Judgement Insight and Judgement: Poor - Group Participation Particating in Group Activities: No - Medication Management Medication Management Adherence: Yes Assessment - Assessment Merits Inpatient Hospitalization: For Immediate Safety, For Stabilization Inpatient DSM-IV Dx: Schizophrenia Plan - Plan Treatment Plan: Name: JESUS BENITEZ Birthdate: 1955 [id number] 1. Continue admission to [facility] for safety and symptom mx. 2. Navane D/C'd due to patient's reported disdain for med and hx of med non- compliance. 3. Hearing for treatment over objection completed 11/02/16. 4. Continue TOO Risperdal, will increase dose from 3mg to 6mg po qhs for psychosis with plan to initiate Invega Sustenna prior to discharge. 5. Continue TOO [place] at 600mg po qhs for mood stabilization/augmentation. 6. Continue TOO Xarelto 20mg po daily for anticoagulation therapy dx-Afib. 7. Collateral information obtained from PCP-Dr. Sebas Ochoa#[phone] and ACT team. 8. Patient to participate in milieu activities and groups. Medications: Current Medications Acetaminophen (Tylenol Tab*) 650 mg PO Q4H PRN PRN Reason: PAIN or TEMP > 101 F Al Hydrox/Mg Hydrox/Simethicone (Maalox Plus*) 30 ml PO Q4H PRN PRN Reason: INDIGESTION Last Admin: 11/06/16 14:06 Dose: 30 ml Benztropine Mesylate (Cogentin Tab*) 1 mg PO BID [facility] Last Admin: 11/06/16 08:55 Dose: 1 mg Calcium/Vitamin D (Oscal D Tab 250/125*) 2 tab PO BID [facility] Last Admin: 11/06/16 08:57 Dose: Not Given Clonazepam (Klonopin Tab(*)) 1 mg PO BEDTIME [facility] Last Admin: 11/05/16 20:17 Dose: 1 mg [place] Carbonate ([place] Carbonate Tab*) 600 mg PO BEDTIME [facility] Last Admin: 11/05/16 20:11 Dose: 600 mg Losartan Potassium (Cozaar Tab*) 25 mg PO DAILY [facility] Last Admin: 11/06/16 08:57 Dose: Not Given Melatonin (Melatonin (Nf)) 3 mg PO BEDTIME [facility] Last Admin: 11/05/16 20:16 Dose: Not Given Multi-Ingredient Liniment/Rub (Avel Santiago*) 1 applic TOPICAL TID PRN PRN Reason: MUSCLE ACHE Last Admin: 10/30/16 11:32 Dose: 1 applic Multivitamins (Theragran Tab*) 1 tab PO DAILY [facility] Last Admin: 11/06/16 08:58 Dose: Not Given Nicotine Polacrilex (Nicotine Gum*) 2 mg PO Q2H PRN PRN Reason: CRAVING Polyethylene Glycol/Electrolytes (Miralax*) 17 gm PO DAILY [facility] Last Admin: 11/06/16 08:57 Dose: Not Given Risperidone (Risperdal*) 3 mg PO BEDTIME [facility] Last Admin: 11/05/16 20:11 Dose: 3 mg Rivaroxaban (Xarelto (*)) 20 mg PO DAILY [facility] Last Admin: 11/06/16 08:58 Dose: 20 mg Senna (Senokot Tab*) 1 tab PO BID [facility] Last Admin: 11/06/16 08:58 Dose: Not Given - Discharge Plan Discharge Plan: Outpatient Follow Up Outpatient Program: Brandi Junior [facility]
[2016-11-06] MEDS: Lithium Carbonate TAB* 300 MG PO SCH (20:14)
[2016-11-06] MEDS: risperiDONE TAB* 3 MG PO SCH (20:15)
[2016-11-06] MEDS: clonazePAM TAB(*) 1 MG PO SCH (20:15)
[2016-11-06] MEDS: CMC:Melatonin (NF) 3 MG TAB PO SCH (20:17)
[2016-11-07 08:22] LABS: Comments Flag Yes; Hematocrit 41 % (42-52); Hemoglobin 14.5 g/dl (14.0-18.0); Mean Corpuscular HGB Conc 36 g/dl (31-36); Mean Corpuscular Hemoglobin 34 pg (27-31); Mean Corpuscular Volume 97 fL (80-94); Mean Platelet Volume 9 um3 (7.4-10.4); Red Blood Count 4.22 10^6/ul (4.0-5.4); Red Cell Distribution Width 13 % (10.5-15); White Blood Count 4.7 10^3/ul (3.5-10.8)
[2016-11-07 08:40] LABS: BUN/Creatinine Ratio 15.7 (8-20); Calcium 9.3 mg/dL (8.6-10.3); EGFR African American 111.8 (>60); EGFR Non-African American 86.9 (>60); Globulin 2.6 g/dL (2-4); HDL Cholesterol 51.4 mg/dL; Lithium 0.4 mmol/L (0.6-1.2); Potassium 4.1 mmol/L (3.5-5.0); Total Bilirubin 0.8 mg/dL (0.2-1.0); Total Protein 6.6 g/dL (6.4-8.9)
[2016-11-07] MEDS: Polyethylene Glycol 3350* 17 GM PACKET PO SCH (09:21)
[2016-11-07] MEDS: Losartan TAB* 25 MG PO SCH (09:22)
[2016-11-07] MEDS: Rivaroxaban TAB(*) 20 MG TAB PO SCH (09:22)
[2016-11-07] MEDS: Vitamin THERAPEUTIC TAB PO SCH (09:22)
[2016-11-07] MEDS: Senna TAB PO SCH ×2 (09:22→20:15)
[2016-11-07] MEDS: Calcium/Vitamin D TAB 250/125* TAB PO SCH ×2 (09:23→23:10)
[2016-11-07] MEDS: Benztropine TAB* 1 MG PO SCH ×2 (09:23→20:10)
--- NOTE | 2016-11-07 13:42 | PN ---
Subjective - Subjective Service Type: [id number] Hosp care 15 min low complexity Subjective: Patient again declines to talk to this provider. Patient noted to be med compliant with increased dose of Risperdal which started last night. He was also compliant with lab work this morning. [place] level was 0.40. Patient informed his [place] dose would be increased to 900mg po qhs. Patient continues to be visible in the milieu, mostly isolating. He is noted to have good appetite and sleep. Patient is able to verbalize his needs. Patient asked if he's having med s/e's, he replied he was not. Patient asked if he had issues with constipation or diarrhea. He reported that he did not. Patient then walked away from the conversation. Objective - Appearance Appearance: Well Developed/Nourished Dysmorphic Features: No Hygiene: Normal Grooming: Well Kept - Behavior Psychomotor Activities: Normal Exhibits Abnormal Movement: No - Attitude and Relatedness Attitude and Relatedness: Psychotically Related Eye Contact: Poor - Speech Quality: Unpressured Latencies: Normal Quantity: Terse - Mood Patient's Decription of Mood: "Okay" - Affect Observed Affect: Constricted Affect Consistent with: Dysphoria - Thought Process Patient's Thought Process: Impoverished Thought Content: Yes Paranoid Ideation, No Passive Wish, No Suicidal Planning, No Homicidal Ideation - Sensorium Experiencing Hallucinations: No, Sensorium is Clear Type of Hallucinations: Visual: No, Auditory: No, Command: No - Level of Consciousness Level of Consciousness: Alert Orientation: Yes Intact, Yes Orientated to Time, Yes Orientated to Place, Yes Orientated to Person - Impulse Control Impulse Control: Intact - Insight and Judgement Insight and Judgement: Poor - Group Participation Particating in Group Activities: No - Medication Management Medication Management Adherence: Yes Assessment - Assessment Merits Inpatient Hospitalization: For Immediate Safety, For Stabilization Inpatient DSM-IV Dx: Schizophrenia Plan - Plan Treatment Plan: Name: JESUS BENITEZ Birthdate: 1955 [id number] 1. Continue admission to [facility] for safety and symptom mx. 2. Navane D/C'd due to patient's reported disdain for med and hx of med non- compliance. 3. Hearing for treatment over objection completed 11/02/16. 4. Continue TOO Risperdal at 6mg po qhs for psychosis with plan to initiate Invega Sustenna prior to discharge. 5. Increase TOO [place] from 600mg to 900mg po qhs for mood stabilization/ augmentation. 6. Continue TOO Xarelto 20mg po daily for anticoagulation therapy dx-Afib. 7. Collateral information obtained from PCP-Dr. Sebas Ochoa#[phone] and ACT team. 8. Patient to participate in milieu activities and groups. Medications: Current Medications Acetaminophen (Tylenol Tab*) 650 mg PO Q4H PRN PRN Reason: PAIN or TEMP > 101 F Al Hydrox/Mg Hydrox/Simethicone (Maalox Plus*) 30 ml PO Q4H PRN PRN Reason: INDIGESTION Last Admin: 11/06/16 14:06 Dose: 30 ml Benztropine Mesylate (Cogentin Tab*) 1 mg PO BID [facility] Last Admin: 11/07/16 09:23 Dose: 1 mg Calcium/Vitamin D (Oscal D Tab 250/125*) 2 tab PO BID [facility] Last Admin: 11/07/16 09:23 Dose: 2 tab Clonazepam (Klonopin Tab(*)) 1 mg PO BEDTIME [facility] Last Admin: 11/06/16 20:15 Dose: 1 mg [place] Carbonate ([place] Carbonate Tab*) 600 mg PO BEDTIME [facility] Last Admin: 11/06/16 20:14 Dose: 600 mg Losartan Potassium (Cozaar Tab*) 25 mg PO DAILY [facility] Last Admin: 11/07/16 09:22 Dose: 25 mg Melatonin (Melatonin (Nf)) 3 mg PO BEDTIME [facility] Last Admin: 11/06/16 20:17 Dose: Not Given Multi-Ingredient Liniment/Rub (Avel Santiago*) 1 applic TOPICAL TID PRN PRN Reason: MUSCLE ACHE Last Admin: 10/30/16 11:32 Dose: 1 applic Multivitamins (Theragran Tab*) 1 tab PO DAILY [facility] Last Admin: 11/07/16 09:22 Dose: 1 tab Nicotine Polacrilex (Nicotine Gum*) 2 mg PO Q2H PRN PRN Reason: CRAVING Polyethylene Glycol/Electrolytes (Miralax*) 17 gm PO DAILY [facility] Last Admin: 11/07/16 09:21 Dose: 17 gm Risperidone (Risperdal*) 6 mg PO BEDTIME [facility] Last Admin: 11/06/16 20:15 Dose: 6 mg Rivaroxaban (Xarelto (*)) 20 mg PO DAILY [facility] Last Admin: 11/07/16 09:22 Dose: 20 mg Senna (Senokot Tab*) 1 tab PO BID [facility] Last Admin: 11/07/16 09:22 Dose: 1 tab - Discharge Plan Discharge Plan: Outpatient Follow Up Outpatient Program: ACT team
[2016-11-07] MEDS: clonazePAM TAB(*) 1 MG PO SCH (20:10)
[2016-11-07] MEDS: risperiDONE TAB* 3 MG PO SCH (20:10)
[2016-11-07] MEDS: Lithium Carbonate TAB* 300 MG PO SCH (20:10)
[2016-11-07] MEDS: CMC:Melatonin (NF) 3 MG TAB PO SCH (20:15)
[2016-11-08] MEDS: Vitamin THERAPEUTIC TAB PO SCH (09:43)
[2016-11-08] MEDS: Rivaroxaban TAB(*) 20 MG TAB PO SCH (09:43)
[2016-11-08] MEDS: Losartan TAB* 25 MG PO SCH (09:43)
[2016-11-08] MEDS: Senna TAB PO SCH ×2 (09:43→21:05)
[2016-11-08] MEDS: Benztropine TAB* 1 MG PO SCH ×2 (09:43→21:04)
[2016-11-08] MEDS: Calcium/Vitamin D TAB 250/125* TAB PO SCH ×2 (09:45→21:05)
--- NOTE | 2016-11-08 10:10 | PN ---
Subjective - Subjective Service Type: [id number] Hosp care 15 min low complexity Subjective: Patient approached this provider, interested in his recent blood draw lab results. He sat and allowed this provider to review his [place] level, CBCw/diff , CMP, Lipid panel, A1C, and PT/INR results. He was happy they were all wnl. He was med compliant with last night's increased dose of [place] to 900mg poqhs. [place] level was 0.40. Patient has also bee compliant with Risperdal and Xarelto. Patient reports fair sleep and appetite. He was eager to end the conversation as dinner was being served. Patient denied SI/HI and AH/VH. Objective - Appearance Appearance: Well Developed/Nourished, Thin Framed Dysmorphic Features: No Hygiene: Normal Grooming: Fairly Well Kept - Behavior Psychomotor Activities: Normal Exhibits Abnormal Movement: No - Attitude and Relatedness Attitude and Relatedness: Minimally Cooperative Eye Contact: Poor - Speech Quality: Unpressured Latencies: Normal Quantity: Appropriate - Mood Patient's Decription of Mood: "Fine" - Affect Observed Affect: Constricted Affect Consistent with: Euthymia - Thought Process Patient's Thought Process: Coherent Thought Content: Yes Paranoid Ideation, No Passive Wish, No Suicidal Planning, No Homicidal Ideation - Sensorium Experiencing Hallucinations: No, Sensorium is Clear Type of Hallucinations: Visual: No, Auditory: No, Command: No - Level of Consciousness Level of Consciousness: Alert Orientation: Yes Intact, Yes Orientated to Time, Yes Orientated to Place, Yes Orientated to Person - Impulse Control Impulse Control: Intact - Insight and Judgement Insight and Judgement: Fair - Group Participation Particating in Group Activities: No - Medication Management Medication Management Adherence: Yes Assessment - Assessment Merits Inpatient Hospitalization: For Immediate Safety, For Stabilization Inpatient DSM-IV Dx: Schizophrenia Plan - Plan Treatment Plan: Name: JESUS BENITEZ Birthdate: 1955 [id number] 1. Continue admission to [facility] for safety and symptom mx. 2. Navane D/C'd due to patient's reported disdain for med and hx of med non- compliance. 3. Hearing for treatment over objection completed 11/02/16. 4. Continue TOO Risperdal at 6mg po qhs for psychosis with plan to initiate Invega Sustenna prior to discharge. 5. Continue TOO [place] 900mg po qhs for mood stabilization/augmentation. 6. Continue TOO Xarelto 20mg po daily for anticoagulation therapy dx-Afib. 7. Obtain information on patient's baseline from ACT, gas leak inspector helper, or from past [facility] provider. 8. Collateral information obtained from PCP-Dr. Sebas Ochoa#[phone] and ACT team. 9. Patient to participate in milieu activities and groups. Continued Medication Management: Different Medication Medications: Current Medications Acetaminophen (Tylenol Tab*) 650 mg PO Q4H PRN PRN Reason: PAIN or TEMP > 101 F Al Hydrox/Mg Hydrox/Simethicone (Maalox Plus*) 30 ml PO Q4H PRN PRN Reason: INDIGESTION Last Admin: 11/06/16 14:06 Dose: 30 ml Benztropine Mesylate (Cogentin Tab*) 1 mg PO BID [facility] Last Admin: 11/08/16 09:43 Dose: 1 mg Calcium/Vitamin D (Oscal D Tab 250/125*) 2 tab PO BID [facility] Last Admin: 11/08/16 09:45 Dose: 2 tab Clonazepam (Klonopin Tab(*)) 1 mg PO BEDTIME [facility] Last Admin: 11/07/16 20:10 Dose: 1 mg [place] Carbonate ([place] Carbonate Tab*) 900 mg PO BEDTIME [facility] Last Admin: 11/07/16 20:10 Dose: 900 mg Losartan Potassium (Cozaar Tab*) 25 mg PO DAILY [facility] Last Admin: 11/08/16 09:43 Dose: 25 mg Melatonin (Melatonin (Nf)) 3 mg PO BEDTIME [facility] Last Admin: 11/07/16 20:15 Dose: Not Given Multi-Ingredient Liniment/Rub (Avel Santiago*) 1 applic TOPICAL TID PRN PRN Reason: MUSCLE ACHE Last Admin: 10/30/16 11:32 Dose: 1 applic Multivitamins (Theragran Tab*) 1 tab PO DAILY [facility] Last Admin: 11/08/16 09:43 Dose: 1 tab Nicotine Polacrilex (Nicotine Gum*) 2 mg PO Q2H PRN PRN Reason: CRAVING Polyethylene Glycol/Electrolytes (Miralax*) 17 gm PO DAILY [facility] Last Admin: 11/07/16 09:21 Dose: 17 gm Risperidone (Risperdal*) 6 mg PO BEDTIME [facility] Last Admin: 11/07/16 20:10 Dose: 6 mg Rivaroxaban (Xarelto (*)) 20 mg PO DAILY [facility] Last Admin: 11/08/16 09:43 Dose: 20 mg Senna (Senokot Tab*) 1 tab PO BID [facility] Last Admin: 11/08/16 09:43 Dose: 1 tab - Discharge Plan Discharge Plan: Outpatient Follow Up
[2016-11-08] MEDS: Polyethylene Glycol 3350* 17 GM PACKET PO SCH (11:27)
[2016-11-08] MEDS: Analgesic BALM* 114 GM TOPICAL PRN (11:35)
[2016-11-08] MEDS ORDERED: Loperamide CAP* 2 MG PO ONE (14:37)
[2016-11-08] MEDS: risperiDONE TAB* 3 MG PO SCH (21:03)
[2016-11-08] MEDS: Lithium Carbonate TAB* 300 MG PO SCH (21:04)
[2016-11-08] MEDS: clonazePAM TAB(*) 1 MG PO SCH (21:04)
[2016-11-08] MEDS: CMC:Melatonin (NF) 3 MG TAB PO SCH (21:05)
[2016-11-09] MEDS: Benztropine TAB* 1 MG PO SCH ×2 (08:21→20:04)
[2016-11-09] MEDS: Calcium/Vitamin D TAB 250/125* TAB PO SCH ×2 (08:21→20:03)
[2016-11-09] MEDS: Losartan TAB* 25 MG PO SCH (08:22)
[2016-11-09] MEDS: Senna TAB PO SCH ×2 (08:22→20:03)
[2016-11-09] MEDS: Rivaroxaban TAB(*) 20 MG TAB PO SCH (08:22)
[2016-11-09] MEDS: Vitamin THERAPEUTIC TAB PO SCH (08:22)
[2016-11-09] MEDS: Polyethylene Glycol 3350* 17 GM PACKET PO SCH (08:25)
[2016-11-09] MEDS: Al Hydrox/Mg Hydrox/Simet LIQ* 30 ML UDC PO PRN (09:22)
--- NOTE | 2016-11-09 13:19 | PN ---
Subjective - Subjective Service Type: [id number] Hosp care 15 min low complexity Subjective: Patient noted to continue to be med compliant with meds since court ordered TOO. Patient again declines to talk to this provider. Patient continues to be visible in the milieu, mostly isolating. He is noted to have good appetite and sleep. Patient is able to verbalize his needs. Objective - Appearance Appearance: Well Developed/Nourished, Thin Framed Dysmorphic Features: No Hygiene: Normal Grooming: Fairly Well Kept - Behavior Psychomotor Activities: Normal Exhibits Abnormal Movement: No - Attitude and Relatedness Attitude and Relatedness: Psychotically Related Eye Contact: Poor - Speech Quality: Unpressured Latencies: Normal Quantity: Terse - Mood Patient's Decription of Mood: unable to assess - Thought Process Thought Content: No Passive Wish - unable to assess, No Suicidal Planning - unable to assess, No Homicidal Ideation - unable to assess, No Paranoid Ideation - unable to assess - Sensorium Experiencing Hallucinations: No, Sensorium is Clear Type of Hallucinations: Visual: No - unable to assess, Auditory: No - unable to assess, Command: No - unable to assess - Level of Consciousness Level of Consciousness: Alert Orientation: No Intact - unable to assess, No Orientated to Time - unable to assess, No Orientated to Place - unable to assess, No Orientated to Person - unable to assess - Impulse Control Impulse Control: Impaired - Insight and Judgement Insight and Judgement: Impaired - Group Participation Particating in Group Activities: No - Medication Management Medication Management Adherence: Yes Assessment - Assessment Merits Inpatient Hospitalization: For Immediate Safety, For Stabilization Inpatient DSM-IV Dx: Schizophrenia Plan - Plan Treatment Plan: Name: JESUS BENITEZ Birthdate: 1955 [id number] 1. Continue admission to [facility] for safety and symptom mx. 2. Navane D/C'd due to patient's reported disdain for med and hx of med non- compliance. 3. Hearing for treatment over objection completed 11/02/16. 4. Continue TOO Risperdal at 6mg po qhs for psychosis with plan to initiate Invega Sustenna prior to discharge. 5. Continue TOO [place] 900mg po qhs for mood stabilization/augmentation. 6. Continue TOO Xarelto 20mg po daily for anticoagulation therapy dx-Afib. 7. Obtain information on patient's baseline from ACT, adult live in caregiver, or from past [facility] provider. 8. Collateral information obtained from PCP-Dr. Sebas Ochoa#[phone] and ACT team. 9. Patient to participate in milieu activities and groups. Medications: Current Medications Acetaminophen (Tylenol Tab*) 650 mg PO Q4H PRN PRN Reason: PAIN or TEMP > 101 F Al Hydrox/Mg Hydrox/Simethicone (Maalox Plus*) 30 ml PO Q4H PRN PRN Reason: INDIGESTION Last Admin: 11/09/16 09:22 Dose: 30 ml Benztropine Mesylate (Cogentin Tab*) 1 mg PO BID [facility] Last Admin: 11/09/16 08:21 Dose: 1 mg Calcium/Vitamin D (Oscal D Tab 250/125*) 2 tab PO BID [facility] Last Admin: 11/09/16 08:21 Dose: 2 tab Clonazepam (Klonopin Tab(*)) 1 mg PO BEDTIME [facility] Last Admin: 11/08/16 21:04 Dose: 1 mg [place] Carbonate ([place] Carbonate Tab*) 900 mg PO BEDTIME [facility] Last Admin: 11/08/16 21:04 Dose: 900 mg Losartan Potassium (Cozaar Tab*) 25 mg PO DAILY [facility] Last Admin: 11/09/16 08:22 Dose: 25 mg Melatonin (Melatonin (Nf)) 3 mg PO BEDTIME [facility] Last Admin: 11/08/16 21:05 Dose: Not Given Multi-Ingredient Liniment/Rub (Avel Santiago*) 1 applic TOPICAL TID PRN PRN Reason: MUSCLE ACHE Last Admin: 11/08/16 11:35 Dose: 1 applic Multivitamins (Theragran Tab*) 1 tab PO DAILY [facility] Last Admin: 11/09/16 08:22 Dose: 1 tab Nicotine Polacrilex (Nicotine Gum*) 2 mg PO Q2H PRN PRN Reason: CRAVING Polyethylene Glycol/Electrolytes (Miralax*) 17 gm PO DAILY [facility] Last Admin: 11/09/16 08:25 Dose: 17 gm Risperidone (Risperdal*) 6 mg PO BEDTIME [facility] Last Admin: 11/08/16 21:03 Dose: 6 mg Rivaroxaban (Xarelto (*)) 20 mg PO DAILY [facility] Last Admin: 11/09/16 08:22 Dose: 20 mg Senna (Senokot Tab*) 1 tab PO BID [facility] Last Admin: 11/09/16 08:22 Dose: 1 tab - Discharge Plan Discharge Plan: Outpatient Follow Up Outpatient Program: ACT team
[2016-11-09] MEDS: Lithium Carbonate TAB* 300 MG PO SCH (20:03)
[2016-11-09] MEDS: risperiDONE TAB* 3 MG PO SCH (20:03)
[2016-11-09] MEDS: CMC:Melatonin (NF) 3 MG TAB PO SCH (20:03)
[2016-11-09] MEDS: clonazePAM TAB(*) 1 MG PO SCH (20:04)
[2016-11-10] MEDS: Benztropine TAB* 1 MG PO SCH ×2 (08:49→19:13)
[2016-11-10] MEDS: Calcium/Vitamin D TAB 250/125* TAB PO SCH ×2 (08:49→19:12)
[2016-11-10] MEDS: Losartan TAB* 25 MG PO SCH (08:49)
[2016-11-10] MEDS: Polyethylene Glycol 3350* 17 GM PACKET PO SCH (08:49)
[2016-11-10] MEDS: Vitamin THERAPEUTIC TAB PO SCH (08:50)
[2016-11-10] MEDS: Senna TAB PO SCH ×2 (08:50→19:13)
[2016-11-10] MEDS: Rivaroxaban TAB(*) 20 MG TAB PO SCH (08:50)
[2016-11-10] MEDS: Analgesic BALM* 114 GM TOPICAL PRN (11:03)
[2016-11-10] MEDS: risperiDONE TAB* 3 MG PO SCH (19:11)
[2016-11-10] MEDS: Lithium Carbonate TAB* 300 MG PO SCH (19:12)
[2016-11-10] MEDS: CMC:Melatonin (NF) 3 MG TAB PO SCH (19:12)
[2016-11-10] MEDS: clonazePAM TAB(*) 1 MG PO SCH (19:13)
[2016-11-11] MEDS: Calcium/Vitamin D TAB 250/125* TAB PO SCH ×2 (08:51→19:42)
[2016-11-11] MEDS: Senna TAB PO SCH ×2 (08:51→19:41)
[2016-11-11] MEDS: Benztropine TAB* 1 MG PO SCH ×2 (08:51→19:42)
[2016-11-11] MEDS: Losartan TAB* 25 MG PO SCH (08:51)
[2016-11-11] MEDS: Polyethylene Glycol 3350* 17 GM PACKET PO SCH (08:53)
[2016-11-11] MEDS: Vitamin THERAPEUTIC TAB PO SCH (08:53)
[2016-11-11] MEDS: Rivaroxaban TAB(*) 20 MG TAB PO SCH (08:53)
[2016-11-11] MEDS: CMC:Melatonin (NF) 3 MG TAB PO SCH (19:41)
[2016-11-11] MEDS: clonazePAM TAB(*) 1 MG PO SCH (19:41)
[2016-11-11] MEDS: risperiDONE TAB* 3 MG PO SCH (19:41)
[2016-11-11] MEDS: Lithium Carbonate TAB* 300 MG PO SCH (19:41)
[2016-11-12] MEDS: Senna TAB PO SCH (08:54)
[2016-11-12] MEDS: Polyethylene Glycol 3350* 17 GM PACKET PO SCH (08:54)
[2016-11-12] MEDS: Calcium/Vitamin D TAB 250/125* TAB PO SCH ×2 (08:54→20:07)
[2016-11-12] MEDS: Rivaroxaban TAB(*) 20 MG TAB PO SCH (08:54)
[2016-11-12] MEDS: Benztropine TAB* 1 MG PO SCH ×2 (08:54→20:09)
[2016-11-12] MEDS: Losartan TAB* 25 MG PO SCH (08:54)
[2016-11-12] MEDS: Vitamin THERAPEUTIC TAB PO SCH (08:54)
[2016-11-12] MEDS: Analgesic BALM* 114 GM TOPICAL PRN (09:27)
--- NOTE | 2016-11-12 10:13 | PN ---
Subjective - Subjective Service Type: [id number] Hosp care 15 min low complexity Subjective: Patient seek out this provider to interview today. Patient is noted to be engaged in the interview, linear in TP and appropriate in TC. Patient reports concern he is experiencing increased episodes of urinary incontinence. He reports episodes of losing urine. He also reports when trying to urinate he notices increased time to start his stream and reports he does not empty his bladder. He reports also increased BMs. He requests Senokot be changed from scheduled to PRN. Patient brings up the topic of tomorrow's scheduled administrative hearing for possible transfer to [facility]. He reports feeling he does not need [facility] hospitalization. He was informed the meeting does not mean he is definitely being transferred. Patient has been med compliant. He is amenable to drop dose of Cogentin from 1mg po BID to 0.5mg po BID for eps as Cogentin is known to cause urinary incontinence. Patient currently has AIMS test score - 0. Patient denies abd pain. He denies ABDI. He reports new mild CP. He is amenable to EKG in am. Patient denies SI/HI and AH/VH. He reports fair sleep and appetite. Objective - Appearance Appearance: Well Developed/Nourished, Thin Framed Dysmorphic Features: No Hygiene: Normal Grooming: Well Kept - Behavior Psychomotor Activities: Normal Exhibits Abnormal Movement: No - Attitude and Relatedness Attitude and Relatedness: Cooperative Eye Contact: Fair - Speech Quality: Unpressured Latencies: Normal Quantity: Appropriate - Mood Patient's Decription of Mood: "Fine" - Affect Observed Affect: Fair Affect Consistent with: Euthymia - Thought Process Patient's Thought Process: Coherent Thought Content: No Passive Wish, No Suicidal Planning, No Homicidal Ideation, No Paranoid Ideation - Sensorium Experiencing Hallucinations: No, Sensorium is Clear Type of Hallucinations: Visual: No, Auditory: No, Command: No - Level of Consciousness Level of Consciousness: Alert Orientation: Yes Intact, Yes Orientated to Time, Yes Orientated to Place, Yes Orientated to Person - Impulse Control Impulse Control: Intact - Insight and Judgement Insight and Judgement: Fair - Group Participation Particating in Group Activities: Yes - Medication Management Medication Management Adherence: Yes Assessment - Assessment Merits Inpatient Hospitalization: For Immediate Safety, For Stabilization Inpatient DSM-IV Dx: Schizophrenia Plan - Plan Treatment Plan: Name: JESUS BENITEZ Birthdate: 1955 [id number] 1. Continue admission to [facility] for safety and symptom mx. 2. Navane D/C'd due to patient's reported disdain for med and hx of med non- compliance. 3. Hearing for treatment over objection completed 11/02/16. Patient has been med compliant since. 4. Continue TOO Risperdal at 6mg po qhs for psychosis. 5. EKG in am 11/13/16 due to patient's report of CP. 6. Patient declines recommendation to initiate SOLIMAN therapy. 7. Continue TOO [place] 900mg po qhs for mood stabilization/augmentation. 8. Continue TOO Xarelto 20mg po daily for anticoagulation therapy dx-Afib. 9. Administrative hearing tomorrow at 1pm. 10. Patient reports increased stools and requests that scheduled 1 Senokot po BID be made PRN. Continue Senokot at 1 po BID PRN constipation. 11. Will decrease Cogentin from 1mg po BID to 0.5mg po BID due to patient's reports of urinary incontinence. Patient currently with AIMS score - 0. 12. Obtain information on patient's baseline from ACT, automobile contract clerk, or from past [facility] provider. 13. Collateral information obtained from PCP-Dr. Sebas Ochoa#[phone] and ACT team. 14. Patient to participate in milieu activities and groups. Medications: Current Medications Acetaminophen (Tylenol Tab*) 650 mg PO Q4H PRN PRN Reason: PAIN or TEMP > 101 F Al Hydrox/Mg Hydrox/Simethicone (Maalox Plus*) 30 ml PO Q4H PRN PRN Reason: INDIGESTION Last Admin: 11/09/16 09:22 Dose: 30 ml Benztropine Mesylate (Cogentin Tab*) 1 mg PO BID [facility] Last Admin: 11/12/16 08:54 Dose: 1 mg Calcium/Vitamin D (Oscal D Tab 250/125*) 2 tab PO BID [facility] Last Admin: 11/12/16 08:54 Dose: 2 tab Clonazepam (Klonopin Tab(*)) 1 mg PO BEDTIME [facility] Last Admin: 11/11/16 19:41 Dose: 1 mg [place] Carbonate ([place] Carbonate Tab*) 900 mg PO BEDTIME [facility] Last Admin: 11/11/16 19:41 Dose: 900 mg Losartan Potassium (Cozaar Tab*) 25 mg PO DAILY [facility] Last Admin: 11/12/16 08:54 Dose: 25 mg Melatonin (Melatonin (Nf)) 3 mg PO BEDTIME [facility] Last Admin: 11/11/16 19:41 Dose: 3 mg Multi-Ingredient Liniment/Rub (Avel Santiago*) 1 applic TOPICAL TID PRN PRN Reason: MUSCLE ACHE Last Admin: 11/12/16 09:27 Dose: 1 applic Multivitamins (Theragran Tab*) 1 tab PO DAILY [facility] Last Admin: 11/12/16 08:54 Dose: 1 tab Nicotine Polacrilex (Nicotine Gum*) 2 mg PO Q2H PRN PRN Reason: CRAVING Polyethylene Glycol/Electrolytes (Miralax*) 17 gm PO DAILY [facility] Last Admin: 11/12/16 08:54 Dose: 17 gm Risperidone (Risperdal*) 6 mg PO BEDTIME [facility] Last Admin: 11/11/16 19:41 Dose: 6 mg Rivaroxaban (Xarelto (*)) 20 mg PO DAILY [facility] Last Admin: 11/12/16 08:54 Dose: 20 mg Senna (Senokot Tab*) 1 tab PO BID [facility] Last Admin: 11/12/16 08:54 Dose: 1 tab - Discharge Plan Discharge Plan: Outpatient Follow Up Additional Comments: ACT team
[2016-11-12] MEDS ORDERED: Senna TAB PO PRN (16:47)
[2016-11-12] MEDS: risperiDONE TAB* 3 MG PO SCH (20:07)
[2016-11-12] MEDS: clonazePAM TAB(*) 1 MG PO SCH (20:08)
[2016-11-12] MEDS: Lithium Carbonate TAB* 300 MG PO SCH (20:09)
[2016-11-13] MEDS: Calcium/Vitamin D TAB 250/125* TAB PO SCH ×2 (08:03→20:16)
[2016-11-13] MEDS: Vitamin THERAPEUTIC TAB PO SCH (08:03)
[2016-11-13] MEDS: Losartan TAB* 25 MG PO SCH (08:03)
[2016-11-13] MEDS: Benztropine TAB* 1 MG PO SCH ×2 (08:04→20:14)
[2016-11-13] MEDS: Rivaroxaban TAB(*) 20 MG TAB PO SCH (08:05)
[2016-11-13] MEDS: Polyethylene Glycol 3350* 17 GM PACKET PO SCH ×2 (08:05→08:57)
[2016-11-13] MEDS: Analgesic BALM* 114 GM TOPICAL PRN (09:25)
--- NOTE | 2016-11-13 10:18 | PN ---
Subjective - Subjective Service Type: 91857 Hosp care 15 min low complexity Subjective: Patient seen during Administrative hearing today at 1pm. Patient noted to be calm, cooperative, and engaged in the process. Patient displayed linear and GD TP. He displayed good memory and was appropriate in TC. Patient noted to have full affect and smiled during and at the end of the hearing. Patient has been med compliant since court ordered TOO. Patient noted to have fair sleep and appetite. Patient aware with further signs of participating in therapy, ie: him attending groups, he is likely to d/c home. Patient agreed to sign DAJUAN to ACT. He has agreed to meet with ACT staff to evaluate if patient near his baseline. Objective - Appearance Appearance: Well Developed/Nourished, Thin Framed Dysmorphic Features: No Hygiene: Normal Grooming: Fairly Well Kept - Behavior Psychomotor Activities: Normal Exhibits Abnormal Movement: No - Attitude and Relatedness Attitude and Relatedness: Cooperative Eye Contact: Fair - Speech Quality: Unpressured Latencies: Normal Quantity: Appropriate - Mood Patient's Decription of Mood: "Okay" - Affect Observed Affect: Fair Affect Consistent with: Euthymia - Thought Process Patient's Thought Process: Coherent Thought Content: No Passive Wish, No Suicidal Planning, No Homicidal Ideation, No Paranoid Ideation - Sensorium Experiencing Hallucinations: No, Sensorium is Clear Type of Hallucinations: Visual: No, Auditory: No, Command: No - Level of Consciousness Level of Consciousness: Alert Orientation: Yes Intact, Yes Orientated to Time, Yes Orientated to Place, Yes Orientated to Person - Impulse Control Impulse Control: Intact - Insight and Judgement Insight and Judgement: Fair - Group Participation Particating in Group Activities: Yes - Medication Management Medication Management Adherence: Yes Assessment - Assessment Merits Inpatient Hospitalization: For Immediate Safety, For Stabilization Inpatient DSM-IV Dx: Schizophrenia Plan - Plan Treatment Plan: Name: JESUS BENITEZ Birthdate: 1955 [id number] 1. Continue admission to [facility] for safety and symptom mx. 2. Navane D/C'd due to patient's reported disdain for med and hx of med non- compliance. 3. Hearing for treatment over objection completed 11/02/16. Patient has been med compliant since. 4. Continue TOO Risperdal at 6mg po qhs for psychosis. 5. EKG - 11/13/16 shows Afib, QTc - wnl 6. Patient declines recommendation to initiate SOLIMAN therapy. 7. Continue TOO [place] 900mg po qhs for mood stabilization/augmentation. 8. Continue TOO Xarelto 20mg po daily for anticoagulation therapy dx-Afib. 9. Administrative hearing completed 11/13/16. Patient agrees to sign DAJUAN for ACT team, meet with ACT team, and attend groups. 10. Patient reports increased stools and requests that scheduled Miralax and scheduled 1 Senokot po BID both be made PRN. Continue Senokot at 1 po BID PRN constipation. Continue Miralax 17gm daily PRN constipation. 11. Continue Cogentin at 0.5mg po BID for eps, due to patient's reports of urinary incontinence. Patient currently with AIMS score - 0. 12. Obtain information on patient's baseline from ACT, branch employment coordinator, or from past [facility] provider. 13. Collateral information obtained from PCP-Dr. Sebas Ochoa#[phone] and ACT team. 14. Patient to participate in milieu activities and groups. Medications: Current Medications Acetaminophen (Tylenol Tab*) 650 mg PO Q4H PRN PRN Reason: PAIN or TEMP > 101 F Al Hydrox/Mg Hydrox/Simethicone (Maalox Plus*) 30 ml PO Q4H PRN PRN Reason: INDIGESTION Last Admin: 11/09/16 09:22 Dose: 30 ml Benztropine Mesylate (Cogentin Tab*) 0.5 mg PO BID [facility] [place] Last Admin: 11/13/16 08:04 Dose: 0.5 mg Calcium/Vitamin D (Oscal D Tab 250/125*) 2 tab PO BID [facility] Last Admin: 11/13/16 08:03 Dose: 2 tab Clonazepam (Klonopin Tab(*)) 1 mg PO BEDTIME [facility] Last Admin: 11/12/16 20:08 Dose: 1 mg [place] Carbonate ([place] Carbonate Tab*) 900 mg PO BEDTIME [facility] Last Admin: 11/12/16 20:09 Dose: 900 mg Losartan Potassium (Cozaar Tab*) 25 mg PO DAILY [facility] Last Admin: 11/13/16 08:03 Dose: 25 mg Melatonin (Melatonin (Nf)) 3 mg PO BEDTIME [facility] Last Admin: 11/11/16 19:41 Dose: 3 mg Multi-Ingredient Liniment/Rub (Avel Santiago*) 1 applic TOPICAL TID PRN PRN Reason: MUSCLE ACHE Last Admin: 11/13/16 09:25 Dose: 1 applic Multivitamins (Theragran Tab*) 1 tab PO DAILY [facility] Last Admin: 11/13/16 08:03 Dose: 1 tab Nicotine Polacrilex (Nicotine Gum*) 2 mg PO Q2H PRN PRN Reason: CRAVING Polyethylene Glycol/Electrolytes (Miralax*) 17 gm PO DAILY [facility] [place] Last Admin: 11/13/16 08:57 Dose: 17 gm Risperidone (Risperdal*) 6 mg PO BEDTIME [facility] [place] Last Admin: 11/12/16 20:07 Dose: 6 mg Rivaroxaban (Xarelto (*)) 20 mg PO DAILY [facility] Last Admin: 11/13/16 08:05 Dose: 20 mg Senna (Senokot Tab*) 1 tab PO BID PRN PRN Reason: CONSTIPATION - Discharge Plan Discharge Plan: Outpatient Follow Up Additional Comments: ACT team
[2016-11-13] MEDS ORDERED: Polyethylene Glycol 3350* 17 GM PACKET PO PRN (11:02)
[2016-11-13] MEDS: CMC:Melatonin (NF) 3 MG TAB PO SCH ×2 (19:10→20:15)
[2016-11-13] MEDS: Lithium Carbonate TAB* 300 MG PO SCH (20:15)
[2016-11-13] MEDS: risperiDONE TAB* 3 MG PO SCH (20:15)
[2016-11-13] MEDS: clonazePAM TAB(*) 1 MG PO SCH (20:16)
[2016-11-14] MEDS: Vitamin THERAPEUTIC TAB PO SCH (08:10)
[2016-11-14] MEDS: Calcium/Vitamin D TAB 250/125* TAB PO SCH ×2 (08:10→20:18)
[2016-11-14] MEDS: Rivaroxaban TAB(*) 20 MG TAB PO SCH (08:10)
[2016-11-14] MEDS: Benztropine TAB* 1 MG PO SCH ×2 (08:10→20:17)
[2016-11-14] MEDS: Losartan TAB* 25 MG PO SCH (08:10)
--- NOTE | 2016-11-14 11:01 | PN ---
Subjective - Subjective Service Type: 39613 Hosp care 15 min low complexity Subjective: Patient noted to be visible in the milieu, pleasant, social with select peers. On interview, patient is again calm, cooperative, and engages the conversation. Patient has good eye contact and is full to bright at times in affect. Patient displayed linear and GD TP. He expresses no delusional thought. Patient has been med compliant since court ordered TOO. Patient noted to have fair sleep and appetite. Patient has signed DAJUAN and is amenable to meeting with ACT team staff so they can determine if patient back to baseline and safe for discharge. Patient reports no med s/e's. He reports no SI/HI or AH/ VH. He is looking forward to his first staff pass. Objective - Appearance Appearance: Well Developed/Nourished, Thin Framed Dysmorphic Features: No Hygiene: Normal Grooming: Well Kept - Behavior Psychomotor Activities: Normal Exhibits Abnormal Movement: No - Attitude and Relatedness Attitude and Relatedness: Cooperative Eye Contact: Fair - Speech Quality: Unpressured Latencies: Normal Quantity: Appropriate - Mood Patient's Decription of Mood: "Good" - Affect Observed Affect: Good Affect Consistent with: Euthymia - Thought Process Patient's Thought Process: Coherent Thought Content: No Passive Wish, No Suicidal Planning, No Homicidal Ideation, No Paranoid Ideation - Sensorium Experiencing Hallucinations: No, Sensorium is Clear Type of Hallucinations: Visual: No, Auditory: No, Command: No - Level of Consciousness Level of Consciousness: Alert Orientation: Yes Intact, Yes Orientated to Time, Yes Orientated to Place, Yes Orientated to Person - Impulse Control Impulse Control: Intact - Insight and Judgement Insight and Judgement: Fair - Group Participation Particating in Group Activities: Yes - Medication Management Medication Management Adherence: Yes Assessment - Assessment Merits Inpatient Hospitalization: For Immediate Safety, For Stabilization Inpatient DSM-IV Dx: Schizophrenia Plan - Plan Treatment Plan: Name: JESUS BENITEZ Birthdate: 1955 [id number] 1. Continue admission to [facility] for safety and symptom mx. 2. Navane D/C'd due to patient's reported disdain for med and hx of med non- compliance. 3. Hearing for treatment over objection completed 11/02/16. Patient has been med compliant since. 4. Continue TOO Risperdal at 6mg po qhs for psychosis. 5. EKG - 10/3/17 shows Afib, QTc - wnl 6. Patient declines recommendation to initiate SOLIMAN therapy. 7. Continue TOO [place] 900mg po qhs for mood stabilization/augmentation. 8. Continue TOO Xarelto 20mg po daily for anticoagulation therapy dx-Afib. 9. Administrative hearing completed 11/13/16. Patient agrees to sign DAJUAN for ACT team, meet with ACT team, and attend groups. 10. Patient reports increased stools and requests that scheduled Miralax and scheduled 1 Senokot po BID both be made PRN. Continue Senokot at 1 po BID PRN constipation. Continue Miralax 17gm daily PRN constipation. 11. Continue Cogentin at 0.5mg po BID for eps, due to patient's reports of urinary incontinence. Patient currently with AIMS score - 0. 12. Obtain information on patient's baseline from ACT, director translational, or from past [facility] provider. 13. Collateral information obtained from PCP-Dr. Sebas Ochoa#[phone] and ACT team. 14. Patient to participate in milieu activities and groups. Medications: Current Medications Acetaminophen (Tylenol Tab*) 650 mg PO Q4H PRN PRN Reason: PAIN or TEMP > 101 F Al Hydrox/Mg Hydrox/Simethicone (Maalox Plus*) 30 ml PO Q4H PRN PRN Reason: INDIGESTION Last Admin: 11/09/16 09:22 Dose: 30 ml Benztropine Mesylate (Cogentin Tab*) 0.5 mg PO BID [facility] Last Admin: 11/14/16 08:10 Dose: 0.5 mg Calcium/Vitamin D (Oscal D Tab 250/125*) 2 tab PO BID [facility] Last Admin: 11/14/16 08:10 Dose: 2 tab Clonazepam (Klonopin Tab(*)) 1 mg PO BEDTIME [facility] Last Admin: 11/13/16 20:16 Dose: 1 mg [place] Carbonate ([place] Carbonate Tab*) 900 mg PO BEDTIME [facility] Last Admin: 11/13/16 20:15 Dose: 900 mg Losartan Potassium (Cozaar Tab*) 25 mg PO DAILY [facility] Last Admin: 11/14/16 08:10 Dose: 25 mg Melatonin (Melatonin (Nf)) 3 mg PO BEDTIME [facility] Last Admin: 11/13/16 20:15 Dose: 3 mg Multi-Ingredient Liniment/Rub (Avel Santiago*) 1 applic TOPICAL TID PRN PRN Reason: MUSCLE ACHE Last Admin: 11/13/16 09:25 Dose: 1 applic Multivitamins (Theragran Tab*) 1 tab PO DAILY [facility] Last Admin: 11/14/16 08:10 Dose: 1 tab Nicotine Polacrilex (Nicotine Gum*) 2 mg PO Q2H PRN PRN Reason: CRAVING Polyethylene Glycol/Electrolytes (Miralax*) 17 gm PO DAILY PRN PRN Reason: CONSTIPATION Last Admin: 11/14/16 08:10 Dose: 17 gm Risperidone (Risperdal*) 6 mg PO BEDTIME [facility] Last Admin: 11/13/16 20:15 Dose: 6 mg Rivaroxaban (Xarelto (*)) 20 mg PO DAILY [facility] Last Admin: 11/14/16 08:10 Dose: 20 mg Senna (Senokot Tab*) 1 tab PO BID PRN PRN Reason: CONSTIPATION - Discharge Plan Additional Comments: ACT team
--- NOTE | 2016-11-14 11:06 | PN ---
[facility]: Group Therapy Note - Service Type Service Type: [id number] Group Psychotherapy - Cognitive Behavioral Group Therapy ( CBT):Patient was attentive and participatory in CBT programming this morning, and remained in good behavioral control. Patient expressed positive insights regarding relevant treatment interventions and goals.
[2016-11-14] MEDS: Lithium Carbonate TAB* 300 MG PO SCH (20:15)
[2016-11-14] MEDS: risperiDONE TAB* 3 MG PO SCH (20:15)
[2016-11-14] MEDS: clonazePAM TAB(*) 1 MG PO SCH (20:16)
[2016-11-14] MEDS: CMC:Melatonin (NF) 3 MG TAB PO SCH (20:18)
[2016-11-15] MEDS: Calcium/Vitamin D TAB 250/125* TAB PO SCH ×2 (08:18→20:01)
[2016-11-15] MEDS: Vitamin THERAPEUTIC TAB PO SCH (08:18)
[2016-11-15] MEDS: Rivaroxaban TAB(*) 20 MG TAB PO SCH (08:18)
[2016-11-15] MEDS: Losartan TAB* 25 MG PO SCH (08:18)
[2016-11-15] MEDS: Benztropine TAB* 1 MG PO SCH ×2 (08:19→20:01)
--- NOTE | 2016-11-15 10:10 | PN ---
Subjective - Subjective Service Type: [id number] Hosp care 15 min low complexity Subjective: Patient noted to be visible in the milieu, pleasant, social with select peers. Again patient is amenable to interview. He is calm, cooperative, and engages the conversation. Patient has good eye contact and is full to bright at times in affect. Patient displayed linear and GD TP. He expresses no delusional thought. Patient informed ACT team would not be able to see him today or tomorrow to give team a sense of if he was back to baseline. Patient informed they request a Saturday discharge. Patient requests Saturday discharge as planned. He appropriately next answered question of how he would eat / get his meds filled. He reports having his keys, money on his debit card, and he offered a plan w/o me asking, of walking to a nearby [employer] for food / Rxs. Patient has been med compliant since court ordered TOO. Patient noted to have fair sleep and appetite. Patient reports no med s/e's. He reports no SI/HI or AH/VH. Objective - Appearance Appearance: Well Developed/Nourished, Thin Framed Dysmorphic Features: No Hygiene: Normal Grooming: Well Kept - Behavior Psychomotor Activities: Normal Exhibits Abnormal Movement: No - Attitude and Relatedness Attitude and Relatedness: Cooperative Eye Contact: Good - Speech Quality: Unpressured Latencies: Normal Quantity: Appropriate - Mood Patient's Decription of Mood: "Good" - Affect Observed Affect: Good Affect Consistent with: Euthymia - Thought Process Patient's Thought Process: Coherent Thought Content: No Passive Wish, No Suicidal Planning, No Homicidal Ideation, No Paranoid Ideation - Sensorium Experiencing Hallucinations: No, Sensorium is Clear Type of Hallucinations: Visual: No, Auditory: No, Command: No - Level of Consciousness Level of Consciousness: Alert Orientation: Yes Intact, Yes Orientated to Time, Yes Orientated to Place, Yes Orientated to Person - Impulse Control Impulse Control: Intact - Insight and Judgement Insight and Judgement: Fair - Group Participation Particating in Group Activities: Yes - Medication Management Medication Management Adherence: Yes Assessment - Assessment Merits Inpatient Hospitalization: For Immediate Safety, For Stabilization Inpatient DSM-IV Dx: Schizophrenia Plan - Plan Treatment Plan: Name: JESUS BENITEZ Birthdate: 1955 [id number] 1. Continue admission to [facility] for safety and symptom mx. 2. Navane D/C'd due to patient's reported disdain for med and hx of med non- compliance. 3. Hearing for treatment over objection completed 11/02/16. Patient has been med compliant since. 4. Continue TOO Risperdal at 6mg po qhs for psychosis. 5. EKG - 11/13/16 shows Afib, QTc - wnl 6. Patient declines recommendation to initiate SOLIMAN therapy. 7. Continue TOO [place] 900mg po qhs for mood stabilization/augmentation. 8. Continue TOO Xarelto 20mg po daily for anticoagulation therapy dx-Afib. 9. Administrative hearing completed 11/13/16. Patient agreed to sign DAJUAN for ACT team, meet with ACT team, and attend groups. 10. Patient reports increased stools and requests that scheduled Miralax and scheduled 1 Senokot po BID both be made PRN. Continue Senokot at 1 po BID PRN constipation. Continue Miralax 17gm daily PRN constipation. 11. Continue Cogentin at 0.5mg po BID for eps, due to patient's reports of urinary incontinence. Patient currently with AIMS score - 0. 12. Discharge tentatively planned for 11/16/16. 13. Obtain information on patient's baseline from ACT, third mate, or from past [facility] provider. 14. Collateral information obtained from PCP-Dr. Sebas Ochoa#[phone] and ACT team. 15. Patient to participate in milieu activities and groups. Medications: Current Medications Acetaminophen (Tylenol Tab*) 650 mg PO Q4H PRN PRN Reason: PAIN or TEMP > 101 F Al Hydrox/Mg Hydrox/Simethicone (Maalox Plus*) 30 ml PO Q4H PRN PRN Reason: INDIGESTION Last Admin: 11/09/16 09:22 Dose: 30 ml Benztropine Mesylate (Cogentin Tab*) 0.5 mg PO BID [facility] Last Admin: 11/15/16 08:19 Dose: 0.5 mg Calcium/Vitamin D (Oscal D Tab 250/125*) 2 tab PO BID [facility] Last Admin: 11/15/16 08:18 Dose: 2 tab Clonazepam (Klonopin Tab(*)) 1 mg PO BEDTIME [facility] Last Admin: 11/14/16 20:16 Dose: 1 mg [place] Carbonate (Ezel Carbonate Tab*) 900 mg PO BEDTIME [facility] Last Admin: 11/14/16 20:15 Dose: 900 mg Losartan Potassium (Cozaar Tab*) 25 mg PO DAILY [facility] Last Admin: 11/15/16 08:18 Dose: 25 mg Melatonin (Melatonin (Nf)) 3 mg PO BEDTIME [facility] Last Admin: 11/14/16 20:18 Dose: Not Given Multi-Ingredient Liniment/Rub (Avel Santiago*) 1 applic TOPICAL TID PRN PRN Reason: MUSCLE ACHE Last Admin: 11/13/16 09:25 Dose: 1 applic Multivitamins (Theragran Tab*) 1 tab PO DAILY [facility] Last Admin: 11/15/16 08:18 Dose: 1 tab Nicotine Polacrilex (Nicotine Gum*) 2 mg PO Q2H PRN PRN Reason: CRAVING Polyethylene Glycol/Electrolytes (Miralax*) 17 gm PO DAILY PRN PRN Reason: CONSTIPATION Last Admin: 11/14/16 08:10 Dose: 17 gm Risperidone (Risperdal*) 6 mg PO BEDTIME [facility] Last Admin: 11/14/16 20:15 Dose: 6 mg Rivaroxaban (Xarelto (*)) 20 mg PO DAILY [facility] Last Admin: 11/15/16 08:18 Dose: 20 mg Senna (Senokot Tab*) 1 tab PO BID PRN PRN Reason: CONSTIPATION Last Admin: 11/15/16 08:20 Dose: 1 tab - Discharge Plan Discharge Plan: Outpatient Follow Up Additional Comments: ACT team
[2016-11-15] MEDS: clonazePAM TAB(*) 1 MG PO SCH (19:58)
[2016-11-15] MEDS: Lithium Carbonate TAB* 300 MG PO SCH (19:58)
[2016-11-15] MEDS: risperiDONE TAB* 3 MG PO SCH (19:59)
[2016-11-15] MEDS: CMC:Melatonin (NF) 3 MG TAB PO SCH (20:01)
[2016-11-16 07:38] VITALS: BP 142/86
[2016-11-16] MEDS: Benztropine TAB* 1 MG PO SCH (07:53)
[2016-11-16] MEDS: Losartan TAB* 25 MG PO SCH (07:53)
[2016-11-16] MEDS: Calcium/Vitamin D TAB 250/125* TAB PO SCH (07:54)
[2016-11-16] MEDS: Rivaroxaban TAB(*) 20 MG TAB PO SCH (07:55)
[2016-11-16] MEDS: Vitamin THERAPEUTIC TAB PO SCH (07:55)
--- NOTE | 2016-11-16 12:11 | DS ---
Subjective - Subjective Service Types: 87016 Hosp DC Day Mgmt simple under 30 min Subjective: Patient continues to be full to bright in affect. He has been no behavioral issue. He has been interactive with staff and cooperative. Patient noted to be visible in the milieu, social with peers, and attending groups. Patient continues to display logical TP and TC. Patient denies SI/HI and AH/VH. Patient is A&Ox4. TC is future oriented. in TC. Patient is psychiatrically stable. Discharge plan has been discussed and patient is amenable and acknowledges understanding. Patient instructed to call the crisis hotline, 911, or self present to a local ED if agitation, paranoia, or SI/HI occurs. Patient was amenable and acknowledged understanding of community supports. Objective - Appearance Appearance: Well Developed/Nourished Dysmorphic Features: No Hygiene: Normal Grooming: Fairly Well Kept - Behavior Psychomotor Activities: Normal Exhibits Abnormal Movement: No - Attitude and Relatedness Attitude and Relatedness: Cooperative Eye Contact: Fair - Speech Quality: Unpressured Latencies: Normal Treatment Course & Assessment Clinical Course & Impression: HOSPITAL COURSE: Patient is a 61yo male with PPHx significant for Schizophrenia who presented to [facility] ED due to ACT team noting patient displaying disorganized thinking and paranoid thought. Patient denies paranoia. He does not interact with staff except to demand discharge. Patient declined interview with this provider. Patient is noted to be on coumadin and RN reported to this provider that his admission INR was 1.1 on 10/18/16. Patient's [place] level also noted to be subtherapeutic on admission at 0.10. Patient is on Coumadin therapy for Afib but there seems to be 2 orders entered for admission at the same time. Patient has likely been non-compliant with these meds as well. Patient noted to be non- compliant with ACT team. Patient has had multiple psychiatric admissions most 2/ 2 becoming med non-compliant. Patient admitted this Saturday for decompensated paranoid Schizophrenia. D/C'd Iris as patient historically has asked to be taken off this med. Re- start Risperdal with plan to initiate Invega Sustenna prior to his discharge. On admission, patient is visible in the milieu pacing. He is noted to be paranoid of staff and continued declining initiation in conversation. Patient educated on why this provider is concerned with his med non-compliance, with special focus on his dx of afib and his increased risk of NC or CVA with each day he does not take his coumadin anticoagulation therapy. Patient stated, "I don't have atrial fibrillation" and walked away. Risperdal re-started, but patient has not been med compliant. Patient has attended to ADLs, is up for meals, and is able to verbalize his needs to staff. Early in admission patient's symptomatic due to medical non-compliance. Collateral information obtained from PCP-Dr. Sebas Ochoa#[phone] regarding anti-coagulation. PCP recommended D/C of Coumadin as patient non- compliant x 2weeks and re-start of Coumadin would reguire an addition 4 -5 days to become therapeutic. Xarelto compliance would yield immediate coverage. Patient encouraged from that point to be compliant with Xarelto 20mg po daily for anticoagulation therapy dx-Afib. Process for TOO started and hearing held on 11/02/16. Patient court ordered to take Risperdal at 3mg po qhs for psychosis with plan to initiate Invega Sustenna prior to discharge. [place] at 600mg po qhs for mood stabilization/augmentation and Xarelto 20mg po daily for anticoagulation therapy dx-Afib. Patient quickly showed symptomatic improvement. Patient began to be interactive with staff and cooperative on the unit. Patient also noted to be visible in the milieu, social with selcet peers, and attending groups. On day of discharge, displayed logical TP and TC. Patient denies SI/HI and AH/ VH. Patient is A&Ox4. TC is future oriented. in TC. Patient is psychiatrically stable. Discharge plan has been discussed and patient is amenable and acknowledges understanding. Patient instructed to call the crisis hotline, 911, or self present to a local ED if agitation, paranoia, or SI/HI occurs. Patient was amenable and acknowledged understanding of community supports. Patient will be discharged home. PERTINENT LABS: Laboratory Tests 10/19/16 10/19/16 10/19/16 18:05 18:05 18:05 WBC 4.9 RBC 3.90 L Hgb 13.4 L Hct 38 L MCV 97 H MCH 35 H MCHC 36 RDW 13 Plt Count 143 L MPV 8 Neut % (Auto) 63.2 Lymph % (Auto) 23.6 L [place] % (Auto) 10.3 H Eos % (Auto) 2.4 Baso % (Auto) 0.5 Absolute Neuts (auto) 3.1 Absolute Lymphs (auto) 1.2 Absolute Monos (auto) 0.5 Absolute Eos (auto) 0.1 Absolute Basos (auto) 0 Absolute Nucleated RBC 0 Nucleated RBC % 0.1 INR (Anticoag Therapy) 1.16 H APTT Sodium 137 Potassium 3.6 Chloride 104 Carbon Dioxide 26 Anion Gap 7 BUN 11 Creatinine 0.82 Est GFR ( Amer) 122.8 Est GFR (Non-Af Amer) 95.5 BUN/Creatinine Ratio 13.4 Glucose 101 H Hemoglobin A1c Calcium 9.1 Total Bilirubin 1.10 H AST 64 H ALT 66 H Alkaline Phosphatase 50 Total Protein 6.4 Albumin 3.9 Globulin 2.5 Albumin/Globulin Ratio 1.6 Triglycerides Cholesterol LDL Cholesterol HDL Cholesterol TSH 0.95 Urine Color Urine Appearance Urine pH Ur Specific Edward Urine Protein Urine Ketones Urine Blood Urine Nitrate Urine Bilirubin Urine Urobilinogen Ur Leukocyte Esterase Urine Glucose Salicylates < 2.50 Urine Opiates Screen Acetaminophen < 15 Ur Barbiturates Screen Ur Phencyclidine Scrn Ur Amphetamines Screen U Benzodiazepines Scrn [place] < 0.10 L Urine Cocaine Screen U Cannabinoids Screen Serum Alcohol < 10 10/19/16 10/19/16 11/02/16 18:40 18:40 17:47 WBC RBC Hgb Hct MCV MCH MCHC RDW Plt Count MPV Neut % (Auto) Lymph % (Auto) [place] % (Auto) Eos % (Auto) Baso % (Auto) Absolute Neuts (auto) Absolute Lymphs (auto) Absolute Monos (auto) Absolute Eos (auto) Absolute Basos (auto) Absolute Nucleated RBC Nucleated RBC % INR (Anticoag Therapy) APTT Sodium 135 Potassium TNP Chloride 104 Carbon Dioxide 26 Anion Gap 5 BUN 18 Creatinine 0.83 Est GFR ( Amer) 121.1 Est GFR (Non-Af Amer) 94.2 BUN/Creatinine Ratio 21.7 H Glucose 104 H Hemoglobin A1c Calcium 9.4 Total Bilirubin 0.80 AST TNP ALT 20 Alkaline Phosphatase 70 Total Protein 6.8 Albumin 4.0 Globulin 2.8 Albumin/Globulin Ratio 1.4 Triglycerides 194 Cholesterol 157 LDL Cholesterol 69 HDL Cholesterol 49.2 TSH Urine Color Straw Urine Appearance Clear Urine pH 5.0 Ur Specific Edward 1.005 L Urine Protein Negative Urine Ketones Trace H Urine Blood Negative Urine Nitrate Negative Urine Bilirubin Negative Urine Urobilinogen Negative Ur Leukocyte Esterase Negative Urine Glucose Negative Salicylates Urine Opiates Screen None detected Acetaminophen Ur Barbiturates Screen None detected Ur Phencyclidine Scrn None detected Ur Amphetamines Screen None detected U Benzodiazepines Scrn None detected [place] Urine Cocaine Screen None detected U Cannabinoids Screen None detected Serum Alcohol 11/02/16 11/02/16 11/02/16 17:47 17:47 18:30 WBC 8.2 RBC 4.30 Hgb 14.8 Hct 42 MCV 96 H MCH 34 H MCHC 36 RDW 13 Plt Count 158 MPV 9 Neut % (Auto) 68.3 Lymph % (Auto) 21.4 L [place] % (Auto) 8.4 Eos % (Auto) 1.4 Baso % (Auto) 0.5 Absolute Neuts (auto) 5.6 Absolute Lymphs (auto) 1.8 Absolute Monos (auto) 0.7 Absolute Eos (auto) 0.1 Absolute Basos (auto) 0 Absolute Nucleated RBC 0.01 Nucleated RBC % 0.2 INR (Anticoag Therapy) APTT Sodium Potassium 3.8 Chloride Carbon Dioxide Anion Gap BUN Creatinine Est GFR ( Amer) Est GFR (Non-Af Amer) BUN/Creatinine Ratio Glucose Hemoglobin A1c 4.8 Calcium Total Bilirubin AST 18 ALT Alkaline Phosphatase Total Protein Albumin Globulin Albumin/Globulin Ratio Triglycerides Cholesterol LDL Cholesterol HDL Cholesterol TSH Urine Color Urine Appearance Urine pH Ur Specific Edward Urine Protein Urine Ketones Urine Blood Urine Nitrate Urine Bilirubin Urine Urobilinogen Ur Leukocyte Esterase Urine Glucose Salicylates Urine Opiates Screen Acetaminophen Ur Barbiturates Screen Ur Phencyclidine Scrn Ur Amphetamines Screen U Benzodiazepines Scrn [place] Urine Cocaine Screen U Cannabinoids Screen Serum Alcohol 11/07/16 11/07/16 11/07/16 07:56 07:56 07:56 WBC 4.7 RBC 4.22 Hgb 14.5 Hct 41 L MCV 97 H MCH 34 H MCHC 36 RDW 13 Plt Count 132 L MPV 9 Neut % (Auto) 66.0 Lymph % (Auto) 21.9 L [place] % (Auto) 9.2 H Eos % (Auto) 2.4 Baso % (Auto) 0.5 Absolute Neuts (auto) 3.1 Absolute Lymphs (auto) 1.0 Absolute Monos (auto) 0.4 Absolute Eos (auto) 0.1 Absolute Basos (auto) 0 Absolute Nucleated RBC 0 Nucleated RBC % 0 INR (Anticoag Therapy) 0.98 APTT 34.0 Sodium 138 Potassium 4.1 Chloride 107 Carbon Dioxide 27 Anion Gap 4 BUN 14 Creatinine 0.89 Est GFR ( Amer) 111.8 Est GFR (Non-Af Amer) 86.9 BUN/Creatinine Ratio 15.7 Glucose 101 H Hemoglobin A1c Calcium 9.3 Total Bilirubin 0.80 AST 18 ALT 18 Alkaline Phosphatase 69 Total Protein 6.6 Albumin 4.0 Globulin 2.6 Albumin/Globulin Ratio 1.5 Triglycerides 36 Cholesterol 146 LDL Cholesterol 87 HDL Cholesterol 51.4 TSH Urine Color Urine Appearance Urine pH Ur Specific Edward Urine Protein Urine Ketones Urine Blood Urine Nitrate Urine Bilirubin Urine Urobilinogen Ur Leukocyte Esterase Urine Glucose Salicylates Urine Opiates Screen Acetaminophen Ur Barbiturates Screen Ur Phencyclidine Scrn Ur Amphetamines Screen U Benzodiazepines Scrn [place] 0.40 L Urine Cocaine Screen U Cannabinoids Screen Serum Alcohol 11/07/16 07:56 WBC RBC Hgb Hct MCV MCH MCHC RDW Plt Count MPV Neut % (Auto) Lymph % (Auto) [place] % (Auto) Eos % (Auto) Baso % (Auto) Absolute Neuts (auto) Absolute Lymphs (auto) Absolute Monos (auto) Absolute Eos (auto) Absolute Basos (auto) Absolute Nucleated RBC Nucleated RBC % INR (Anticoag Therapy) APTT Sodium Potassium Chloride Carbon Dioxide Anion Gap BUN Creatinine Est GFR ( Amer) Est GFR (Non-Af Amer) BUN/Creatinine Ratio Glucose Hemoglobin A1c 4.9 Calcium Total Bilirubin AST ALT Alkaline Phosphatase Total Protein Albumin Globulin Albumin/Globulin Ratio Triglycerides Cholesterol LDL Cholesterol HDL Cholesterol TSH Urine Color Urine Appearance Urine pH Ur Specific Edward Urine Protein Urine Ketones Urine Blood Urine Nitrate Urine Bilirubin Urine Urobilinogen Ur Leukocyte Esterase Urine Glucose Salicylates Urine Opiates Screen Acetaminophen Ur Barbiturates Screen Ur Phencyclidine Scrn Ur Amphetamines Screen U Benzodiazepines Scrn [place] Urine Cocaine Screen U Cannabinoids Screen Serum Alcohol Consultants: none Discharge Meds: Home Medications Medication Instructions Recorded Confirmed Type Benztropine TAB* [Cogentin TAB*] 0.5 mg PO BID #15 tab 11/16/16 Rx Calcium/Vitamin D TAB 250/125* 2 tab PO BID #120 tab 11/16/16 Rx [Oscal D TAB 250/125*] [place] Carbonate TAB* 900 mg PO BEDTIME #90 tab 11/16/16 Rx Losartan TAB* [Cozaar TAB*] 25 mg PO DAILY #30 tab 11/16/16 Rx Melatonin (NF) 3 mg PO BEDTIME #30 tab 11/16/16 Rx Nicotine Inhaler* 10 mg INH Q2H PRN #60 amp 11/16/16 Rx Polyethylene Glycol 3350* 17 gm PO DAILY PRN #15 packet 11/16/16 Rx [Miralax*] Rivaroxaban TAB(*) [Xarelto 20 mg] 20 mg PO DAILY #30 tab 11/16/16 Rx Senna TAB* [Senokot TAB*] 1 tab PO BID PRN #60 tab 11/16/16 Rx Vitamin THERAPEUTIC TAB* 1 tab PO DAILY #30 tab 11/16/16 Rx [Theragran TAB*] clonazePAM TAB(*) [Klonopin TAB(*)] 1 mg PO BEDTIME #30 tab MDD 1mg 11/16/16 Rx risperiDONE TAB* [Risperdal*] 6 mg PO BEDTIME #60 tab 11/16/16 Rx Clear for Discharge: Adequate Clinical Respons, Acceptable Safety Profile, Low Utility of Inpt Care Inpatient DSM-IV Dx: Schizophrenia Discharge Planning - Discharge Planning Discharge Plan: Outpatient Follow Up [facility] Recommendations for Continuing Care: Medication Management, Routine Metabolic Monitoring, Primary Care Followup, Specialty Followup Medications: Current Medications Acetaminophen (Tylenol Tab*) 650 mg PO Q4H PRN PRN Reason: PAIN or TEMP > 101 F Al Hydrox/Mg Hydrox/Simethicone (Maalox Plus*) 30 ml PO Q4H PRN PRN Reason: INDIGESTION Last Admin: 11/09/16 09:22 Dose: 30 ml Benztropine Mesylate (Cogentin Tab*) 0.5 mg PO BID [facility] Last Admin: 11/16/16 07:53 Dose: 0.5 mg Calcium/Vitamin D (Oscal D Tab 250/125*) 2 tab PO BID [facility] Last Admin: 11/16/16 07:54 Dose: 2 tab Clonazepam (Klonopin Tab(*)) 1 mg PO BEDTIME [facility] Last Admin: 11/15/16 19:58 Dose: 1 mg [place] Carbonate ([place] Carbonate Tab*) 900 mg PO BEDTIME [facility] Last Admin: 11/15/16 19:58 Dose: 900 mg Losartan Potassium (Cozaar Tab*) 25 mg PO DAILY [facility] Last Admin: 11/16/16 07:53 Dose: 25 mg Melatonin (Melatonin (Nf)) 3 mg PO BEDTIME [facility] Last Admin: 11/15/16 20:01 Dose: Not Given Multi-Ingredient Liniment/Rub (Avel Santiago*) 1 applic TOPICAL TID PRN PRN Reason: MUSCLE ACHE Last Admin: 11/13/16 09:25 Dose: 1 applic Multivitamins (Theragran Tab*) 1 tab PO DAILY [facility] Last Admin: 11/16/16 07:55 Dose: 1 tab Nicotine Polacrilex (Nicotine Gum*) 2 mg PO Q2H PRN PRN Reason: CRAVING Polyethylene Glycol/Electrolytes (Miralax*) 17 gm PO DAILY PRN PRN Reason: CONSTIPATION Last Admin: 11/14/16 08:10 Dose: 17 gm Risperidone (Risperdal*) 6 mg PO BEDTIME [facility] Last Admin: 11/15/16 19:59 Dose: 6 mg Rivaroxaban (Xarelto (*)) 20 mg PO DAILY [facility] Last Admin: 11/16/16 07:55 Dose: 20 mg Senna (Senokot Tab*) 1 tab PO BID PRN PRN Reason: CONSTIPATION Last Admin: 11/15/16 08:20 Dose: 1 tab Discharge Planning: Prescriptions provided for discharge [x] Yes [] No Follow up care details as per social work arrangements. Patient response to discharge plan: [] eager for discharge [x] agreeable with discharge plan [] ambivalent about discharge [] disagrees with discharge today
--- NOTE | 2016-11-16 14:36 | PN ---
MHU: Group Therapy Note - Service Type Service Type: 93676 Group Psychotherapy - Cognitive Behavioral Group Therapy ( CBT):Patient was attentive and participatory in CBT programming this morning, and remained in good behavioral control. Patient expressed positive insights regarding relevant treatment interventions and goals.
== END 2016-11-16 15:30 | disposition home or self-care (01) | DRG 885 ==
LOC: ED 17:19 → BSU 10-20 00:32
PROVIDERS: ADMIT Psychiatry & Neurology Psychiatry; ATTEND Psychiatry & Neurology Psychiatry
PROC: GZHZZZZ Group Psychotherapy (ICD-10-PCS; principal; 2016-10-26)
DX: F20.5 Residual schizophrenia (principal); I48.91 Unspecified atrial fibrillation; K59.00 Constipation, unspecified; I35.0 Nonrheumatic aortic (valve) stenosis; Z81.8 Family history of other mental and behavioral disorders; Z91.19 Patient's noncompliance with other medical treatment and regimen; Z91.14 Patient's other noncompliance with medication regimen
CPT/HCPCS: 36415; 80053; 80061; 80178; 80307; 80320; 80329; 81003; 83036; 84443; 85025; 85610; 85730; 90853; 93005; 99222; 99231; 99238; A9270-GY; G0480; J1200; J1630; J2060

== ENCOUNTER 2017-11-22 14:31 | Inpatient (IN) | payer MEDICARE, MEDICAID ==
--- NOTE | 2017-11-22 14:55 | ED ---
Psychiatric Complaint - HPI Summary HPI Summary: This pt is a 62 y/o male presenting to [facility] via EMS for a mental health evaluation. Sidra, ditch tender, sent the pt to the ED on a 9.[address] order from the director of [facility] for noncompliance with medications and a mental health evaluation. Pt has hx of schizophrenia. Pt is supposed to be on [place], clonazepam, Risperdal, Inderal, Invega sustenna. Sidra reports pt did receive Invega Sustenna as this is given IM once a month. Pt reports "I'm supposed to take natural medicine." Denies SI or HI thoughts/plan. - History Of Current Complaint Time Seen by Provider: 11/22/17 14:45 Hx Obtained From: Patient, Other: - Sidra from [facility] Onset/Duration: Lasting Days, Still Present Timing: Days Severity Currently: Moderate Aggravating Factor(s): Medication Non-compliance Alleviating Factor(s): Nothing Related History: Positive For: Prior Psychiatric Issues Has Suicidal: Denies: Thoughts, With A Plan Has Homicidal: Denies: Thoughts, With A Plan - Allergies/Home Medications Allergies/Adverse Reactions: Allergies Allergy/AdvReac Type Severity Reaction Status Date / Time haloperidol [From Haldol] Allergy Unknown Verified 03/25/17 11:48 Reaction Details mold Allergy Unknown Verified 11/22/17 19:57 Reaction Details Penicillins Allergy Unknown Verified 11/22/17 19:57 Reaction Details pork derived (porcine) Allergy Unknown Verified 03/25/17 11:48 Reaction Details trifluoperazine Allergy Unknown Verified 03/25/17 11:48 Reaction Details Home Medications: Home Medications clonazePAM TAB(*) [Klonopin TAB(*)] 1 mg PO BID MDD 1mg 11/22/17 [History Confirmed 11/22/17] PMH/Surg Hx/FS Hx/Imm Hx Endocrine/Hematology History: Denies: Hx Anticoagulant Therapy Sensory History: Reports: Hx Contacts or Glasses Denies: Hx Cataracts, Hx Hearing Aid Opthamlomology History: Reports: Hx Contacts or Glasses Denies: Hx Cataracts Neurological History: Reports: Other Neuro Impairments/Disorders - hx of benztropine tx Denies: Hx Seizures Psychiatric History: Reports: Hx Anxiety, Hx Depression, Hx [facility]patient Treatment - [facility] [place], Hx Community Mental Health Tx, Hx Schizophrenia - hx of navane tx. , Hx Bipolar Disorder, Hx of Violent Episodes Against Others, Other Psychiatric Issues/Disorders - Psychosis - Immunization History Date of Tetanus Vaccine: unk Infectious Disease History: Denies: Traveled Outside the [place] in Last 30 Days - Family History Known Family History: Positive: Unknown - Patient is a LEVEL 5 CAVEAT Family History: schizophrenia, depression - Social History Alcohol Use: refuses to cooperate with assessment Substance Use Type: Reports: None Smoking Status (MU): Never Smoked Tobacco Review of Systems - ROS Summary Review of Systems Summary: ROS IS LIMITED DUE TO LEVEL 5 CAVEAT - poor historian Negative: Fever, Chills Psychological: Other - schizophrenia, noncompliant with meds All Other Systems Reviewed And Are Negative: No Physical Exam - Summary Physical Exam Summary: VITAL SIGNS: Reviewed. GENERAL: Patient is a well-developed and nourished male who is lying comfortable in the stretcher. Patient is not in any acute respiratory distress. HEAD AND FACE: No signs of trauma. No ecchymosis, hematomas or skull depressions. No sinus tenderness. EYES: PERRLA, EOMI x 2, No injected conjunctiva, no nystagmus. EARS: Hearing grossly intact. Ear canals and tympanic membranes are within normal limits. MOUTH: Oropharynx within normal limits. NECK: Supple, trachea is midline, no adenopathy, no JVD, no carotid bruit, no c- spine tenderness, neck with full ROM. CHEST: Symmetric, no tenderness at palpation LUNGS: Clear to auscultation bilaterally. No wheezing or crackles. CVS: Regular rate and rhythm, S1 and S2 present, no murmurs or gallops appreciated. ABDOMEN: Soft, non-tender. No signs of distention. No rebound, no guarding, and no masses palpated. Bowel sounds are normal. EXTREMITIES: FROM in all major joints, no edema, no cyanosis or clubbing. NEURO: Alert and oriented x 3. No acute neurological deficits. Speech is normal and follows commands. SKIN: Dry and warm PSYCH: Tangential thinking. Denies SI or HI thoughts/plan. Pt is a poor historian. He is calm. Triage Information Reviewed: Yes Vital Signs Reviewed: Yes Completion Of Physical Exam Limited Due To: Level 5 - pt is a poor historian Diagnostics - Laboratory Result Diagrams: 11/22/17 15:25 11/22/17 15:25 Lab Statement: Any lab studies that have been ordered have been reviewed, and results considered in the medical decision making process. Re-Evaluation - Re-Evaluation First Eval Re-Evaluation Time: 16:10 Comment: Pt is medically cleared. Course/Dx - Course Assessment/Plan: This pt is a 62 y/o male presenting to [facility] via EMS for a mental health evaluation. Sidra, ditch tender, sent the pt to the ED on a 9.[address] order from the director of [facility] for noncompliance with medications and a mental health evaluation. Pt has hx of schizophrenia. Pt is supposed to be on [place], clonazepam, Risperdal, Inderal, Invega sustenna. Sidra reports pt did receive Invega Sustenna as this is given IM once a month. Pt reports "I'm supposed to take natural medicine." Denies SI or HI thoughts/plan. Blood work w/o a significant abnormality. He is medically cleared. He is awaiting for a MHE. Patient is hemodynamically stable and A+O x 3. Pt had a mental health evaluation and his case was reviewed by Dr. Mir, psychiatrist. Dr. Mir will admit the pt to [facility] [place] facility with diagnosis of psychosis. - Differential Dx/Clinical Impression Differential Diagnosis/HQI/PQRI: Positive: Acute Psychosis, Anxiety Provider Diagnosis: Psychosis Discharge - Sign-Out/Discharge Documenting (check all that apply): Patient Departure - Admit to [facility] - Discharge Plan Condition: Stable Disposition: PSYCHIATRIC FACILITY[place] - Billing Disposition and Condition Condition: STABLE Disposition: Psychiatric Facility [facility] - Attestation Statements Document Initiated by Scribe: Yes Documenting Scribe: Vania Araiza Provider For Whom Murray is Documenting (Include Credential): Sebas Gr MD Scribe Attestation: Vania Blum, scribed for Sebas Gr MD on 11/23/17 at 0847. Scribe Documentation Reviewed: Yes Provider Attestation: The documentation as recorded by the reenaibeVania accurately reflects the service I personally performed and the decisions made by me, Sebas Gr MD
[2017-11-22 15:34] LABS: ABS Basophils 0.1 10^3/ul (0-0.2); ABS Eosinophils 0.1 10^3/ul (0-0.6); ABS Monocytes 0.6 10^3/ul (0-0.8); ABS Neutrophils 3.5 10^3/ul (1.5-7.7); ABS Nucleated RBC 0 10^3/ul; Eosinophil % 2.7 % (0-6); Hematocrit 38 % (42-52); Hemoglobin 13.6 g/dl (14.0-18.0); Lymphocyte % 18.8 % (25-47); Mean Corpuscular HGB Conc 36 g/dl (31-36); Mean Corpuscular Hemoglobin 35 pg (27-31); Mean Corpuscular Volume 96 fL (80-94); Mean Platelet Volume 8.9 um3 (7.4-10.4); Nucleated Red Blood Cells % 0; Platelet Count 145 10^3/ul (150-450); Red Blood Count 3.94 10^6/ul (4.00-5.40); Red Cell Distribution Width 13 % (10.5-15); White Blood Count 5.2 10^3/ul (3.5-10.8)
[2017-11-22 15:55] LABS: EGFR Non-African American 83.4 (>60)
[2017-11-22 16:09] LABS: Lithium < 0.10 mmol/L (0.6-1.2)
[2017-11-22] MEDS: clonazePAM TAB(*) 0.5 MG PO SCH (21:08)
[2017-11-22] MEDS: risperiDONE TAB* 3 MG PO SCH (21:08)
[2017-11-22] MEDS: Propranolol TAB* 10 MG PO SCH (21:08)
[2017-11-22] MEDS: Lithium Carbonate TAB* 300 MG PO SCH (21:08)
[2017-11-22] MEDS: Melatonin 3 MG TAB PO SCH (21:08)
[2017-11-23] MEDS: Rivaroxaban TAB(*) 20 MG TAB PO SCH (09:25)
[2017-11-23] MEDS: clonazePAM TAB(*) 0.5 MG PO SCH ×2 (09:25→22:01)
[2017-11-23] MEDS: Propranolol TAB* 10 MG PO SCH ×2 (09:25→22:02)
[2017-11-23] MEDS: Vitamin THERAPEUTIC TAB PO SCH (09:25)
[2017-11-23] MEDS: Losartan TAB* 25 MG PO SCH (09:25)
--- NOTE | 2017-11-23 20:59 | HP ---
HISTORY AND PHYSICAL: DATE OF ADMISSION: IDENTIFYING DATA: Mr. Lopez is a 62-year-old mentally disabled male, well known to this unit and surrounding hospitals because of numerous psychiatric hospitalizations in the past. His las t hospitalization on this unit was on 10/20/16. He was brought to the emergency department yesterday with the recommendation by his ACT team and he came here in an ambulance. CHIEF COMPLAINT: The patient has been intimidating and sexually inappropriate in the community and w as nonadhering to his appointments and/or proposed treatments. HISTORY OF PRESENT ILLNESS: Immanuel was brought to the emergency room against his will because of the above complaints in the community, as he was a risk for violence in the community. Immanuel has not bee n complying with his appointments with ACT team as well as refusing to take his medications as per ou r AOT orders resulting in acute decompensation psychiatrically. During today's evaluation, Immanuel was fine for approximately 30 seconds, answered questions very superficially and then walked away from t he evaluation saying he did not need any help. He also declined for us to get his vital signs or do a physical examination. Repeated requests by the nursing for him to come back and let us help him wa s unsuccessful, he just walked away. Hence, the rest of history and physical will be from collateral information that we have on record. PAST PSYCHIATRIC HISTORY: Remarkable for numerous psychiatric hospitalizations starting at age 15. He was diagnosed with schizophrenia/schizoaffective disorder, bipolar type. In brief, he has always been noncompliant with any treatment recommendations despite the fact that he is on ACT team. PAST MEDICAL HISTORY: Remarkable for severe aortic stenosis and atrial fibrillation. Immanuel had alwa ys declined any interventions offered to him in the past and today. ALLERGIES: Unknown. FAMILY HISTORY: From collaterals, it is evident that both sides of his family struggled with mental illness, especially due to the diagnosis of schizophrenia, depression and anger management difficulti es. His older brother is also known to suffer from mental illness; however, there is no family histo ry of suicide. PERSONAL AND SOCIAL HISTORY: Immanuel has been mentally disabled since teenage years, never . N o children. He is currently followed by [facility] ACT team. He is unemployed and is totally depen dent on public assistance. PHYSICAL EXAMINATION Physical exam was offered. Immanuel even did not allow us to do his vital signs, let alone do anything else. Review of emergency department's physical exam did not indicate any problem whatsoever includi ng his known diagnosis of severe aortic stenosis as well as atrial fibrillation. There were no vital s available on record at that time; however, he does not appear to be in any kind of physical distres s and we will continue to pursue to accomplish everything to make sure he is physically safe. DIAGNOSTIC STUDIES/LAB DATA: As such, an EKG was ordered along with an echocardiogram. We may even request for a hospitalist consult in case EKG or echocardiogram shows any abnormal reports. Labs done in the emergency room were unremarkable. His WBC count was 5.2, hemoglobin 13.6, hematocri t 38 which is slightly lower than normal, platelet count is 145 which is also on the lower end of nor mal. Comprehensive metabolic profile shows a sodium level of 139, potassium 3.6, chloride 105, carbo n dioxide 28, BUN 16, creatinine 0.5. Rest of the report was also unremarkable. MENTAL STATUS EXAMINATION: This 62-year-old male who is appropriately dressed, poorly groomed, alert and oriented to place and person. Due to his uncooperativeness, mental status is only observed. Th e patient declined to cooperate with answering any questions. He appears to be internally preoccupie d, very tense, irritable, and severely dysphoric. Unable to sit still, pacing fast in the hallways, declines to answer any questions. He definitely is a high risk for violence if not observed very ayan sely. SUMMARY: This 62-year-old mentally disabled male known to this facility from multiple prio r psychiatric hospitalizations, who also suffers from aortic stenosis and atrial fibrillation, was br ought to the emergency room this time once again for appointment and treatment nonadherence even for his ACT team. He is extremely tense, irritable, and guarded. DIAGNOSTIC IMPRESSION: MENTAL HEALTH DIAGNOSIS: Schizoaffective disorder, bipolar type. PHYSICAL HEALTH DIAGNOSES: 1. Aortic stenosis. 2. History of atrial fibrillation. TREATMENT RECOMMENDATIONS: Immanuel will remain hospitalized on the behavioral science unit for his and others safety in the community. His code status will remain full. Supportive milieu, individual, a nd group therapy will be tried; hopefully, Immanuel will cooperate. He will be monitored very closely f or possible violence on the unit. We have requested an EKG and echocardiogram and we will request fo r a medical consult to be on the safer side. Understandably, he may decline any of the above. He is on long-acting injectable, which he received in recent past and the next one is already due; however , he is declining anything injectable or p.o. We will once again pursue treatment over objection and I will recommend treatment over objections not only for psychiatric reasons, also for his medical co nditions as that is a high risk condition and needs to be addressed if allowed by the law. [id number]/CPS #: [id number]
[2017-11-23] MEDS: Lithium Carbonate TAB* 300 MG PO SCH (22:01)
[2017-11-23] MEDS: risperiDONE TAB* 3 MG PO SCH (22:02)
[2017-11-23] MEDS: Melatonin 3 MG TAB PO SCH (22:02)
[2017-11-24] MEDS: Propranolol TAB* 10 MG PO SCH ×2 (10:41→20:04)
[2017-11-24] MEDS: Rivaroxaban TAB(*) 20 MG TAB PO SCH (10:41)
[2017-11-24] MEDS: Losartan TAB* 25 MG PO SCH (10:41)
[2017-11-24] MEDS: clonazePAM TAB(*) 0.5 MG PO SCH ×2 (10:41→20:04)
[2017-11-24] MEDS: Vitamin THERAPEUTIC TAB PO SCH (10:41)
[2017-11-24] MEDS: Acetaminophen TAB* 325 MG PO PRN (17:42)
[2017-11-24] MEDS: Melatonin 3 MG TAB PO SCH (20:04)
[2017-11-24] MEDS: risperiDONE TAB* 3 MG PO SCH (20:04)
[2017-11-24] MEDS: Lithium Carbonate TAB* 300 MG PO SCH (20:04)
[2017-11-25] MEDS: Acetaminophen TAB* 325 MG PO PRN (05:21)
[2017-11-25] MEDS: clonazePAM TAB(*) 0.5 MG PO SCH ×2 (10:00→20:21)
[2017-11-25] MEDS: Losartan TAB* 25 MG PO SCH (10:01)
[2017-11-25] MEDS: Rivaroxaban TAB(*) 20 MG TAB PO SCH (10:01)
[2017-11-25] MEDS: Vitamin THERAPEUTIC TAB PO SCH (10:01)
[2017-11-25] MEDS: Propranolol TAB* 10 MG PO SCH ×2 (10:01→20:20)
--- NOTE | 2017-11-25 13:50 | ECHO ---
Patient: JESUS BENITEZ [facility] Rec#: [id number] : 1955 Date: 11/25/2017 Age: 62y Height: 183 cm / 72.0 in Weight: 93 kg / 205.0 lbs Sex: M BSA: 2.15 Room#: 210 Admit Date#: 11/22/2017 Type: Inpatient Referring: Berry Santacruz MD Reading: Ayo Golden MD Ampoule Inspector: Yudith Greene RDCS,RDMS CC: Sebas Ochoa MD Transthoracic Echocardiogram Indication: AFIB BP: 129/103 HR: 92 Rhythm: A-Fib Findings History: AFIB, valvular disease Technical Comments: The study quality is good. Left Ventricle: The left ventricular chamber size is moderately dilated. Mild to moderate concentric left ventricular hypertrophy is observed. Global left ventricular wall motion and contractility are within normal limits. There is normal left ventricular systolic function. The estimated ejection fraction is 50-55%. The assessment of diastolic function is non-diagnostic. Left Atrium: The left atrium is severely dilated. Right Ventricle: The right ventricular chamber size and systolic function are within normal limits. Right Atrium: The right atrial cavity size is severely dilated. Aortic Valve: The aortic valve is trileaflet. The aortic valve leaflets are mildly thickened. Systolic excursion of the aortic valve is normal. There is a trace of aortic regurgitation. There is no evidence of aortic stenosis. Mitral Valve: The mitral valve leaflets are mildly thickened. There is mild mitral valve prolapse. There is moderate to severe mitral regurgitation. The mitral regurgitant jet is eccentric. There is no evidence of mitral stenosis. Tricuspid Valve: The tricuspid valve leaflets are normal. There is trace tricuspid regurgitation. No pulmonary hypertension is noted. Pulmonic Valve: The pulmonic valve appears normal. There is a trace pulmonic regurgitation. Pericardium: There is no significant pericardial effusion. Aorta: The aortic root appears normal. There is no dilatation of the aortic arch. Pulmonary Artery: The main pulmonary artery appears normal. Venous: The inferior vena cava is dilated. There is a greater than 50% respiratory change in the inferior vena cava dimension. Summary: There was not any prior study for comparison. Conclusions Mild to moderate concentric left ventricular hypertrophy is observed. Global left ventricular wall motion and contractility are within normal limits. The estimated ejection fraction is 50-55%. The right ventricular chamber size and systolic function are within normal limits. There is a trace of aortic regurgitation. There is no evidence of aortic stenosis. There is moderate to severe mitral regurgitation. The mitral regurgitant jet is eccentric. There is no evidence of mitral stenosis. There is trace tricuspid regurgitation. There is no significant pericardial effusion. Further evaluation of the degree of MR may be done with a GATITO Measurements Name Value Normal Range RVIDd (AP) 2D 2.2 cm (0.9 - 2.6) RVDdMajor (2D) 3.8 cm (2.2 - 4.4) RAd ISD 4CH 6.2 cm (3.4 - 4.9) RA (A4C)W 5 cm (2.9 - 4.6) IVSd (2D) 1.3 cm (0.6 - 1) LVPWd (2D) 1.5 cm (0.6 - 1) LVIDd (2D) 6.1 cm (3.6 - 5.4) LVIDs (2D) 4.5 cm - LV FS (2D) 27 % (25 - 45) Aortic Annulus 2.5 cm (1.4 - 2.6) Ao root diameter (2D) 2.4 cm (2.1 - 3.5) Ascending Ao 3 cm (2.1 - 3.4) Aortic arch 2.4 cm (1.8 - 3.4) LA dimension (AP) 2D 6 cm (2.3 - 3.8) LAd ISD 4CH 7.7 cm (2.9 - 5.3) LA ISD 4CH W 7.1 cm (2.5 - 4.5) Name Value Normal Range LA ESV BP (A/L) index 107 ml/m2 - Name Value Normal Range MV E-wave Vmax 1.1 m/sec - MV deceleration time 155 msec - LV septal e' Vmax 0.12 m/sec - LV lateral e' Vmax 0.14 m/sec - LV E:e' septal ratio 9 ratio - LV E:e' lateral ratio 8 ratio - Name Value Normal Range AV Vmax 1.2 m/sec - AV VTI 19 cm - AV peak gradient 6 mmHg - AV mean gradient 3 mmHg - LVOT diameter 2.1 cm - LVOT Vmax 0.6 m/sec - LVOT VTI 11 cm - LVOT peak gradient 1.4 mmHg - LVOT mean gradient 1 mmHg - DYAN (continuity Vmax) 1.7 cm2 - DYAN (continuity VTI) 2 cm2 - MIKE Vmax 0.7 m/sec - Name Value Normal Range MV Vmax 1.4 m/sec - MV VTI 29 cm - MV peak gradient 8 mmHg - MV mean gradient 3 mmHg - MV PHT 75 msec - MR volume (PISA) 18 ml - MR flow (PISA) 58 ml/sec - MR ERO 0.18 cm2 - MR PISA radius 0.5 cm - MR alias Vmax 37 cm/sec - MVA (PHT) 2.9 cm2 - MVA (continuity VTI) 1.3 cm2 - Name Value Normal Range TR Vmax 2.5 m/sec - TR peak gradient 25 mmHg - RAP 8 mmHg - RVSP 33 mmHg - IVC diameter 2.9 cm - Name Value Normal Range PV Vmax 0.6 m/sec - PV peak gradient 1.4 mmHg -
--- NOTE | 2017-11-25 13:51 | PN ---
Subjective - Subjective Date of Service: 11/25/17 Service Type: 35705 Hosp care 25 min moderate complexity Subjective: Patient was seen by self, discussed with treatment team, chart was reviewed. Patient has been non compliant with his medications. Patient reports that he has increased in his sex drive and medication is causing that. When asked it appeared that patient has not been taking his medications for sometime. Patient was in euphoric mood today with hypersexual thoughts. Patient was also reporting increase in religiosity. Patient has been unpredictable with his behavior on the unit and has been inappropriate with his boundaries towards other patients. Patient reportedly has been resistant to treatment and refusing PO medications including both for mental and physical health that poses him at increased risk of danger to self and others. Patient sleeping has been impaired and has been found pacing in the hallways. Patient eating has been fine. Patient has been un cooperative with staff. Patient behavior has been unpredictable. Patient has been reporting no suicidal or homicidal ideation. Patient has paranoid delusion towards others but no psychotic symptoms of hallucinations. Patient some how did manage to go and get his echo cardiogram done today Objective - Appearance Appearance: Healthy Appearing Dysmorphic Features: No Hygiene: Normal Grooming: Disheveled - Behavior Psychomotor Activities: Abnormal-Increased Exhibits Abnormal Movement: No - Attitude and Relatedness Attitude and Relatedness: Psychotically Related Eye Contact: Fair - Speech Quality: Unpressured Latencies: Normal Quantity: Terse - Mood Patient's Decription of Mood: "Great" - Affect Observed Affect: Euphoric Affect Consistent with: Euphoria - Thought Process Patient's Thought Process: Goal Directed Thought Content: Yes Paranoid Ideation, No Passive Wish, No Suicidal Planning, No Homicidal Ideation - Sensorium Experiencing Hallucinations: No, Sensorium is Clear Type of Hallucinations: Visual: No, Auditory: No, Command: No - Level of Consciousness Level of Consciousness: Alert Orientation: Yes Intact, Yes Orientated to Time, Yes Orientated to Place, Yes Orientated to Person - Impulse Control Impulse Control: Poor - Insight and Judgement Insight and Judgement: Poor - Group Participation Particating in Group Activities: No - Medication Management Medication Management Adherence: No Assessment - Assessment Merits Inpatient Hospitalization: For Immediate Safety, For Stabilization, For Discharge Planning Inpatient DSM-V Dx: F25.0 Clinical Impression: This 62-year-old 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 He is extremely tense, irritable, and guarded. Plan - Plan Treatment Plan: Name: JESUS BENITEZ Birthdate: 1955 [id number] - Patient continues to be hospitalized due to non compliance, unpredictable and sexually inappropriate behavior in the community, delusional in his thinking. - Patient's medications were continued but has been non compliant. Multiple attempts were made to educate patient about compliance with his treatment. But continued to resist. Patient was continued with current medications and will pursue with medication over objection. - Patient will be monitored for improvement and side effects. Risk and benefits were discussed. - Patient was encouraged to continue his participation in the milieu, group and individual therapy. Medications: Current Medications Acetaminophen (Tylenol Tab*) 650 mg PO Q4H PRN PRN Reason: PAIN or TEMP > 101 F Last Admin: 11/25/17 05:21 Dose: 650 mg Al Hydrox/Mg Hydrox/Simethicone (Maalox Plus*) 30 ml PO Q4H PRN PRN Reason: INDIGESTION Clonazepam (Klonopin Tab(*)) 0.5 mg PO BID [facility] Last Admin: 11/25/17 10:00 Dose: Not Given [place] Carbonate (Kenvil Carbonate Tab*) 900 mg PO BEDTIME [facility] Last Admin: 11/24/17 20:04 Dose: Not Given Losartan Potassium (Cozaar Tab*) 25 mg PO QAM [facility] Last Admin: 11/25/17 10:01 Dose: Not Given Melatonin (Melatonin) 3 mg PO BEDTIME [facility] Last Admin: 11/24/17 20:04 Dose: Not Given Multivitamins (Theragran Tab*) 1 tab PO DAILY [facility] Last Admin: 11/25/17 10:01 Dose: Not Given Propranolol HCl (Inderal Tab*) 10 mg PO BID [facility] Last Admin: 11/25/17 10:01 Dose: Not Given Risperidone (Risperdal*) 3 mg PO BEDTIME [facility] Last Admin: 11/24/17 20:04 Dose: Not Given Rivaroxaban (Xarelto(*)) 20 mg PO QAM [facility] Last Admin: 11/25/17 10:01 Dose: Not Given
[2017-11-25] MEDS: Lithium Carbonate TAB* 300 MG PO SCH (20:20)
[2017-11-25] MEDS: Melatonin 3 MG TAB PO SCH (20:20)
[2017-11-25] MEDS: risperiDONE TAB* 3 MG PO SCH (20:21)
[2017-11-26] MEDS: Rivaroxaban TAB(*) 20 MG TAB PO SCH (10:52)
[2017-11-26] MEDS: Propranolol TAB* 10 MG PO SCH ×2 (10:52→19:55)
[2017-11-26] MEDS: clonazePAM TAB(*) 0.5 MG PO SCH ×2 (10:52→19:55)
[2017-11-26] MEDS: Losartan TAB* 25 MG PO SCH (10:52)
[2017-11-26] MEDS: Vitamin THERAPEUTIC TAB PO SCH (10:52)
--- NOTE | 2017-11-26 12:08 | PN ---
Subjective - Subjective Date of Service: 11/26/17 Service Type: 90562 Hosp care 25 min moderate complexity Subjective: Patient was seen by self, discussed with treatment team, chart was reviewed. Patient has been non compliant with his medications. Patient continue to rationalizes his not needing any medications. Patient has no insight in his medical or psychiatric illness. Patient has not been taking his medications for despite of multiple attempts to educate. Patient was in euphoric mood and has been inappropriate with his boundaries towards other especially female patients. Patient hence is currently on constant observation. Patient was also reporting increase in religiosity. Patient reportedly has been resistant to treatment and last received his Invega Sustena on 11/05 or 11/04. Patient sleeping has been ok with some interruptions. Patient eating has been fine. Patient has been uncooperative with staff. Patient behavior has been unpredictable. Patient has been reporting no suicidal or homicidal ideation. Patient has paranoid delusion towards others but no psychotic symptoms of hallucinations. in the process of treatment over objection as patient is adamant about not needing medications and preoccupied with discharge. Objective - Appearance Appearance: Healthy Appearing Dysmorphic Features: No Hygiene: Normal Grooming: Fairly Well Kept - Behavior Psychomotor Activities: Normal Exhibits Abnormal Movement: No - Attitude and Relatedness Attitude and Relatedness: Superficially Cooperative Eye Contact: Fair - Speech Quality: Unpressured Latencies: Normal Quantity: Terse - Mood Patient's Decription of Mood: "Okay" - Affect Observed Affect: Labile Affect Consistent with: Euphoria - Thought Process Patient's Thought Process: Goal Directed Thought Content: Yes Paranoid Ideation, No Passive Wish, No Suicidal Planning, No Homicidal Ideation - Sensorium Experiencing Hallucinations: No, Sensorium is Clear Type of Hallucinations: Visual: No, Auditory: No, Command: No - Level of Consciousness Level of Consciousness: Alert Orientation: Yes Intact, Yes Orientated to Time, Yes Orientated to Place, Yes Orientated to Person - Impulse Control Impulse Control: Poor - Insight and Judgement Insight and Judgement: Poor - Medication Management Medication Management Adherence: No Assessment - Assessment Merits Inpatient Hospitalization: For Immediate Safety, For Stabilization, For Discharge Planning Inpatient DSM-V Dx: F25.0 Clinical Impression: This 62-year-old 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 He is extremely tense, irritable, and guarded. Plan - Plan Treatment Plan: Name: JESUS BENITEZ Birthdate: 1955 [id number] - Patient continues to be hospitalized due to non compliance, unpredictable and sexually inappropriate behavior in the community, delusional in his thinking. - Patient's medications were continued but has been non compliant. Multiple attempts were made to educate patient about compliance with his treatment. But continued to resist. Patient was continued with current medications and will pursue with treatment over objection. - Patient will be monitored for improvement and side effects. Risk and benefits were discussed. - Patient was encouraged to continue his participation in the milieu, group and individual therapy. Medications: Current Medications Acetaminophen (Tylenol Tab*) 650 mg PO Q4H PRN PRN Reason: PAIN or TEMP > 101 F Last Admin: 11/25/17 05:21 Dose: 650 mg Al Hydrox/Mg Hydrox/Simethicone (Maalox Plus*) 30 ml PO Q4H PRN PRN Reason: INDIGESTION Clonazepam (Klonopin Tab(*)) 0.5 mg PO BID [facility] Last Admin: 11/26/17 10:52 Dose: Not Given [place] Carbonate ([place] Carbonate Tab*) 900 mg PO BEDTIME [facility] Last Admin: 11/25/17 20:20 Dose: Not Given Losartan Potassium (Cozaar Tab*) 25 mg PO QAM [facility] Last Admin: 11/26/17 10:52 Dose: Not Given Melatonin (Melatonin) 3 mg PO BEDTIME [facility] Last Admin: 11/25/17 20:20 Dose: Not Given Multivitamins (Theragran Tab*) 1 tab PO DAILY [facility] Last Admin: 11/26/17 10:52 Dose: Not Given Propranolol HCl (Inderal Tab*) 10 mg PO BID [facility] Last Admin: 11/26/17 10:52 Dose: Not Given Risperidone (Risperdal*) 3 mg PO BEDTIME [facility] Last Admin: 11/25/17 20:21 Dose: Not Given Rivaroxaban (Xarelto(*)) 20 mg PO QAM [facility] Last Admin: 11/26/17 10:52 Dose: Not Given
[2017-11-26] MEDS: Melatonin 3 MG TAB PO SCH (19:55)
[2017-11-26] MEDS: risperiDONE TAB* 3 MG PO SCH (19:55)
[2017-11-26] MEDS: Lithium Carbonate TAB* 300 MG PO SCH (19:55)
[2017-11-27] MEDS: Rivaroxaban TAB(*) 20 MG TAB PO SCH (09:51)
[2017-11-27] MEDS: Losartan TAB* 25 MG PO SCH (09:51)
[2017-11-27] MEDS: Propranolol TAB* 10 MG PO SCH ×2 (09:51→21:37)
[2017-11-27] MEDS: clonazePAM TAB(*) 0.5 MG PO SCH ×2 (09:51→21:37)
[2017-11-27] MEDS: Vitamin THERAPEUTIC TAB PO SCH (09:51)
--- NOTE | 2017-11-27 11:14 | PN ---
Subjective - Subjective Date of Service: 11/27/17 Service Type: 40419 Hosp care 25 min moderate complexity Subjective: Patient was seen by self, discussed with treatment team, chart was reviewed. Patient has been non compliant with his medications. Patient continue to rationalizes his not needing any medications now or in the future. Patient has no insight in his medical or psychiatric illness and states "I am healthy and I take care of myself". Patient has not been taking his medications despite of multiple attempts to educate. Patient continues to be on constant observation to help him maintain boundaries. Patient received his Invega Sustena on 11/05 as per collateral. Patient sleeping has been ok with some interruptions. Patient eating has been fine. Patient has been somewhat cooperative with staff. Patient behavior has been unpredictable. Patient has been reporting no suicidal or homicidal ideation. Patient has paranoid delusion and trust issues towards others but no psychotic symptoms of hallucinations. Patient is in the process of treatment over objection as patient is adamant about not needing medications and preoccupied with discharge. Objective - Appearance Appearance: Healthy Appearing Dysmorphic Features: No Hygiene: Normal Grooming: Fairly Well Kept - Behavior Psychomotor Activities: Normal Exhibits Abnormal Movement: No - Attitude and Relatedness Attitude and Relatedness: Superficially Cooperative Eye Contact: Poor - Speech Quality: Unpressured Latencies: Normal - Mood Patient's Decription of Mood: "Good" - Affect Observed Affect: Labile Affect Consistent with: Euphoria - Thought Process Thought Content: Yes Paranoid Ideation - residual trust related paranoia, No Passive Wish, No Suicidal Planning, No Homicidal Ideation - Sensorium Experiencing Hallucinations: No, Sensorium is Clear Type of Hallucinations: Visual: No, Auditory: No, Command: No - Level of Consciousness Level of Consciousness: Alert Orientation: Yes Intact, Yes Orientated to Time, Yes Orientated to Place, Yes Orientated to Person - Impulse Control Impulse Control: Poor - but has been fair with constant obervation - Insight and Judgement Insight and Judgement: Poor - Group Participation Particating in Group Activities: Yes - Medication Management Medication Management Adherence: No Assessment - Assessment Merits Inpatient Hospitalization: For Immediate Safety, For Stabilization, For Discharge Planning Inpatient DSM-V Dx: F25.0 Clinical Impression: This 62-year-old 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 He is extremely tense, irritable, and guarded. Plan - Plan Treatment Plan: Name: JESUS BENITEZ Birthdate: 1955 [id number] - Patient continues to be hospitalized due to non compliance, unpredictable and sexually inappropriate behavior in the community, delusional in his thinking. - Patient's medications were continued but has been non compliant. Multiple attempts were made to educate patient about compliance with his treatment. But continued to resist. Patient was continued with current medications and will pursue with treatment over objection. - Patient next Invega Sustena IM is due 12/03/17. Patient constant observation was discussed with team and was changed to [place] while awake. - Patient will be monitored for improvement and side effects. Risk and benefits were discussed. - Patient was encouraged to continue his participation in the milieu, group and individual therapy. Medications: Current Medications Acetaminophen (Tylenol Tab*) 650 mg PO Q4H PRN PRN Reason: PAIN or TEMP > 101 F Last Admin: 11/25/17 05:21 Dose: 650 mg Al Hydrox/Mg Hydrox/Simethicone (Maalox Plus*) 30 ml PO Q4H PRN PRN Reason: INDIGESTION Clonazepam (Klonopin Tab(*)) 0.5 mg PO BID [facility] Last Admin: 11/27/17 09:51 Dose: Not Given [place] Carbonate ([place] Carbonate Tab*) 900 mg PO BEDTIME [facility] Last Admin: 11/26/17 19:55 Dose: Not Given Losartan Potassium (Cozaar Tab*) 25 mg PO QAM [facility] Last Admin: 11/27/17 09:51 Dose: Not Given Melatonin (Melatonin) 3 mg PO BEDTIME [facility] Last Admin: 11/26/17 19:55 Dose: Not Given Multivitamins (Theragran Tab*) 1 tab PO DAILY [facility] Last Admin: 11/27/17 09:51 Dose: Not Given Propranolol HCl (Inderal Tab*) 10 mg PO BID [facility] Last Admin: 11/27/17 09:51 Dose: Not Given Risperidone (Risperdal*) 3 mg PO BEDTIME [facility] Last Admin: 11/26/17 19:55 Dose: Not Given Rivaroxaban (Xarelto(*)) 20 mg PO QAM [facility] Last Admin: 11/27/17 09:51 Dose: Not Given
[2017-11-27] MEDS: risperiDONE TAB* 3 MG PO SCH (21:37)
[2017-11-27] MEDS: Lithium Carbonate TAB* 300 MG PO SCH (21:37)
[2017-11-27] MEDS: Melatonin 3 MG TAB PO SCH (21:37)
[2017-11-28] MEDS: Losartan TAB* 25 MG PO SCH (08:30)
[2017-11-28] MEDS: Propranolol TAB* 10 MG PO SCH ×2 (08:30→20:25)
[2017-11-28] MEDS: Rivaroxaban TAB(*) 20 MG TAB PO SCH (08:30)
[2017-11-28] MEDS: clonazePAM TAB(*) 0.5 MG PO SCH ×2 (08:30→20:25)
[2017-11-28] MEDS: Vitamin THERAPEUTIC TAB PO SCH (08:31)
--- NOTE | 2017-11-28 11:43 | PN ---
Subjective - Subjective Date of Service: 11/28/17 Service Type: [id number] Hosp care 15 min low complexity Subjective: Patient was seen by self, discussed with treatment team, chart was reviewed. Patient has been non compliant with his medications. Patient was angry, irritable today, restless and has been pacing constantly on the unit all day, disorganized behavior. Patient was loud and aggressive today and unpredictable with his behavior. Patient rubbed a visible whitish cream all over her extremities and his black trouser. When approached patient he got aggressive and did not cooperate answering any question. Patient has no insight in his medical or psychiatric illness. Patient has not been taking his medications despite of multiple attempts to educate. Patient continues to be on constant observation to help him maintain boundaries with out patients. Patient received his Invega Sustena on 11/05 as per collateral. Patient sleeping has been ok. Patient eating has been fine. Patient has been somewhat cooperative with staff. Patient behavior has been unpredictable. Patient has been reporting no suicidal or homicidal ideation. Patient has paranoid and trust issues towards others and stays internally preoccupied appears to be responding to internal stimuli. Patient is in the process of treatment over objection as patient is adamant about not needing medications and preoccupied with discharge. Objective - Appearance Appearance: Healthy Appearing Dysmorphic Features: No Hygiene: Dirty Grooming: Disheveled - Behavior Psychomotor Activities: Normal Exhibits Abnormal Movement: No - Attitude and Relatedness Attitude and Relatedness: Psychotically Related Eye Contact: Fair - Speech Quality: Unpressured Latencies: Long Quantity: Terse - Mood Patient's Decription of Mood: "Irritable" - Affect Observed Affect: Labile Affect Consistent with: Dysphoria - Thought Process Patient's Thought Process: Disorganized Thought Content: Yes Paranoid Ideation, No Passive Wish, No Suicidal Planning, No Homicidal Ideation - Sensorium Experiencing Hallucinations: No, Sensorium is Clear Type of Hallucinations: Visual: No, Auditory: No, Command: No - Level of Consciousness Level of Consciousness: Agitated Orientation: Yes Intact, Yes Orientated to Time, Yes Orientated to Place, Yes Orientated to Person - Impulse Control Impulse Control: Poor - Insight and Judgement Insight and Judgement: Poor - Medication Management Medication Management Adherence: No Assessment - Assessment Merits Inpatient Hospitalization: For Immediate Safety, For Stabilization, For Discharge Planning Inpatient DSM-V Dx: F25.0 Clinical Impression: This 62-year-old 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 He is extremely tense, irritable, and guarded. Plan - Plan Treatment Plan: Name: JESUS BENITEZ Birthdate: 1955 [id number] - Patient continues to be hospitalized due to non compliance, unpredictable and sexually inappropriate behavior in the community, delusional in his thinking. - Patient's medications were continued but has been non compliant. Multiple attempts were made to educate patient about compliance with his treatment. But continued to resist. Patient was continued with current medications and will pursue with treatment over objection. Court appearance tomorrow for treatment over objection. - Patient next Invega Bennie IM is due 12/03/17. Patient constant observation to be continued while awake. - Patient will be monitored for improvement and side effects. Risk and benefits were discussed. - Patient was encouraged to continue his participation in the milieu, group and individual therapy. Medications: Current Medications Acetaminophen (Tylenol Tab*) 650 mg PO Q4H PRN PRN Reason: PAIN or TEMP > 101 F Last Admin: 11/25/17 05:21 Dose: 650 mg Al Hydrox/Mg Hydrox/Simethicone (Maalox Plus*) 30 ml PO Q4H PRN PRN Reason: INDIGESTION Clonazepam (Klonopin Tab(*)) 0.5 mg PO BID [facility] Last Admin: 11/28/17 08:30 Dose: Not Given [place] Carbonate ([place] Carbonate Tab*) 900 mg PO BEDTIME [facility] Last Admin: 11/27/17 21:37 Dose: Not Given Losartan Potassium (Cozaar Tab*) 25 mg PO QAM [facility] Last Admin: 11/28/17 08:30 Dose: Not Given Melatonin (Melatonin) 3 mg PO BEDTIME [facility] Last Admin: 11/27/17 21:37 Dose: Not Given Multivitamins (Theragran Tab*) 1 tab PO DAILY [facility] Last Admin: 11/28/17 08:31 Dose: Not Given Propranolol HCl (Inderal Tab*) 10 mg PO BID [facility] Last Admin: 11/28/17 08:30 Dose: Not Given Risperidone (Risperdal*) 3 mg PO BEDTIME [facility] Last Admin: 11/27/17 21:37 Dose: Not Given Rivaroxaban (Xarelto(*)) 20 mg PO QAM [facility] Last Admin: 11/28/17 08:30 Dose: Not Given
[2017-11-28] MEDS: Melatonin 3 MG TAB PO SCH (20:25)
[2017-11-28] MEDS: Lithium Carbonate TAB* 300 MG PO SCH (20:25)
[2017-11-28] MEDS: risperiDONE TAB* 3 MG PO SCH (20:25)
[2017-11-29] MEDS: Propranolol TAB* 10 MG PO SCH (08:25)
[2017-11-29] MEDS: clonazePAM TAB(*) 0.5 MG PO SCH (08:25)
[2017-11-29] MEDS: Rivaroxaban TAB(*) 20 MG TAB PO SCH (08:25)
[2017-11-29] MEDS: Vitamin THERAPEUTIC TAB PO SCH (08:25)
[2017-11-29] MEDS: Losartan TAB* 25 MG PO SCH (08:25)
--- NOTE | 2017-11-29 12:17 | PN ---
Subjective - Subjective Date of Service: 11/29/17 Service Type: [id number] Hosp care 35 min high complexity Subjective: Patient was seen by self, discussed with treatment team, chart was reviewed. Patient has been non compliant with his medications. Patient was euphoric but restless today, irritable today, restless and has been pacing constantly on the unit all day, disorganized behavior. Patient reportedly has been struggling with his sexual urges and lustful thoughts but has been on constant observation to help maintain boundaries. Patient continues to have paranoid delusions about water fountain that he feels might be poisoned. Patient continues to have paranoid and trust issues toward medical provider and still refuses his medications. Patient has not been taking his medications despite of multiple attempts to educate. Patient received his Invega Sustena on 11/05 as per collateral. Patient sleeping was disturbed all night yesterday as per staff. Patient eating has been fine. Patient has been somewhat superficially cooperative with staff. Patient behavior has been unpredictable. Patient has been reporting no suicidal or homicidal ideation. Patient has paranoid and trust issues towards others and stays internally preoccupied appears to be responding to internal stimuli. Patient is in the process of treatment over objection as patient is adamant about not needing medications and preoccupied with discharge. Objective - Appearance Appearance: Healthy Appearing Dysmorphic Features: No Hygiene: Normal Grooming: Fairly Well Kept - Behavior Psychomotor Activities: Normal Exhibits Abnormal Movement: No - Attitude and Relatedness Attitude and Relatedness: Cooperative Eye Contact: Fair - Speech Quality: Unpressured Latencies: Normal Quantity: Appropriate - Mood Patient's Decription of Mood: and euphoric at times - Affect Observed Affect: Labile Affect Consistent with: Euphoria - Thought Process Patient's Thought Process: Goal Directed Thought Content: Yes Paranoid Ideation, No Passive Wish, No Suicidal Planning, No Homicidal Ideation - Sensorium Experiencing Hallucinations: No, Sensorium is Clear Type of Hallucinations: Visual: No, Auditory: No, Command: No - Level of Consciousness Level of Consciousness: Alert Orientation: Yes Intact, Yes Orientated to Time, Yes Orientated to Place, Yes Orientated to Person - Impulse Control Impulse Control: Poor - Insight and Judgement Insight and Judgement: Poor - Medication Management Medication Management Adherence: No Assessment - Assessment Merits Inpatient Hospitalization: For Immediate Safety, For Stabilization, For Discharge Planning Inpatient DSM-V Dx: F25.0 Clinical Impression: This 62-year-old 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 He is extremely tense, irritable, and guarded. Plan - Plan Treatment Plan: Name: JESUS BENITEZ Birthdate: 1955 [id number] - Patient continues to be hospitalized due to non compliance, unpredictable and sexually inappropriate behavior in the community, delusional in his thinking. - Patient's medications were continued but has been non compliant. Multiple attempts were made to educate patient about compliance with his treatment. But continued to resist. Patient was continued with current medications and will pursue with treatment over objection. Court appearance today for treatment over objection. - Patient next Invega Bennie IM is due 12/03/17. Patient constant observation to be continued while awake. - Patient will be monitored for improvement and side effects. Risk and benefits were discussed. - Patient was encouraged to continue his participation in the milieu, group and individual therapy. Medications: Current Medications Acetaminophen (Tylenol Tab*) 650 mg PO Q4H PRN PRN Reason: PAIN or TEMP > 101 F Last Admin: 11/25/17 05:21 Dose: 650 mg Al Hydrox/Mg Hydrox/Simethicone (Maalox Plus*) 30 ml PO Q4H PRN PRN Reason: INDIGESTION Clonazepam (Klonopin Tab(*)) 0.5 mg PO BID [facility] Last Admin: 11/29/17 08:25 Dose: Not Given [place] Carbonate ([place] Carbonate Tab*) 900 mg PO BEDTIME [facility] Last Admin: 11/28/17 20:25 Dose: Not Given Losartan Potassium (Cozaar Tab*) 25 mg PO QAM [facility] Last Admin: 11/29/17 08:25 Dose: Not Given Melatonin (Melatonin) 3 mg PO BEDTIME [facility] Last Admin: 11/28/17 20:25 Dose: Not Given Multivitamins (Theragran Tab*) 1 tab PO DAILY [facility] Last Admin: 11/29/17 08:25 Dose: Not Given Propranolol HCl (Inderal Tab*) 10 mg PO BID [facility] Last Admin: 11/29/17 08:25 Dose: Not Given Risperidone (Risperdal*) 3 mg PO BEDTIME [facility] Last Admin: 11/28/17 20:25 Dose: Not Given Rivaroxaban (Xarelto(*)) 20 mg PO QAM [facility] Last Admin: 11/29/17 08:25 Dose: Not Given
[2017-11-29] MEDS ORDERED: LORazepam INJ* 2 MG/ML 1 ML VIAL IM PRN (16:29)
[2017-11-30] MEDS: Rivaroxaban TAB(*) 20 MG TAB PO SCH (15:56)
[2017-11-30] MEDS: Propranolol TAB* 10 MG PO SCH ×3 (15:56→20:40)
[2017-11-30] MEDS: LORazepam TAB(*) 1 MG PO SCH ×3 (15:57→20:40)
[2017-11-30] MEDS: Divalproex ER TAB(*) 500 MG PO SCH ×2 (19:37→20:40)
[2017-12-01] MEDS: LORazepam TAB(*) 1 MG PO SCH ×2 (09:39→20:51)
[2017-12-01] MEDS: Rivaroxaban TAB(*) 20 MG TAB PO SCH ×2 (09:40→16:03)
[2017-12-01] MEDS: Propranolol TAB* 10 MG PO SCH ×2 (09:40→20:51)
[2017-12-01] MEDS: Divalproex ER TAB(*) 500 MG PO SCH (20:50)
[2017-12-02] MEDS: Propranolol TAB* 10 MG PO SCH ×2 (10:02→21:11)
[2017-12-02] MEDS: Rivaroxaban TAB(*) 20 MG TAB PO SCH (10:02)
[2017-12-02] MEDS: LORazepam TAB(*) 1 MG PO SCH (10:02)
[2017-12-02] MEDS ORDERED: LORazepam TAB(*) 1 MG PO SCH (14:30)
[2017-12-02] MEDS ORDERED: LORazepam INJ* 2 MG/ML 1 ML VIAL IM PRN (14:32)
[2017-12-02] MEDS ORDERED: LORazepam TAB(*) 1 MG PO PRN (14:33)
--- NOTE | 2017-12-02 14:43 | PN ---
Subjective - Subjective Date of Service: 12/02/17 Service Type: [id number] Hosp care 15 min low complexity Subjective: Patient was seen by self, discussed with treatment team, chart was reviewed. Patient has been non compliant with his medications. Patient continues to rationalizes his not needing any medications now or in the future. Patient insight has been improving in his medical or psychiatric illness and has been taking Xarelto PO. Patient has not been taking his other medications despite of multiple attempts to educate. Patient continues to be on constant observation to help him maintain boundaries. Patient received his Invega Sustena on 11/05 as per collateral. Patient sleeping has been disturbed with interruptions. Patient eating has been fine. Patient has been somewhat cooperative with staff. Patient behavior has been unpredictable. Patient has been reporting no suicidal or homicidal ideation. Patient has continued paranoid delusion and trust issues towards others but but some improvement in intensity today no psychotic symptoms of hallucinations. Objective - Appearance Appearance: Healthy Appearing Dysmorphic Features: No Hygiene: Normal Grooming: Fairly Well Kept - Behavior Psychomotor Activities: Normal Exhibits Abnormal Movement: No - Attitude and Relatedness Attitude and Relatedness: Cooperative Eye Contact: Fair - Speech Quality: Unpressured Latencies: Normal Quantity: Appropriate - Mood Patient's Decription of Mood: "Great" - Affect Observed Affect: Euphoric Affect Consistent with: Euphoria - Thought Process Patient's Thought Process: Circumstantial Thought Content: Yes Paranoid Ideation, No Passive Wish, No Suicidal Planning, No Homicidal Ideation - Sensorium Experiencing Hallucinations: No, Sensorium is Clear Type of Hallucinations: Visual: No, Auditory: No, Command: No - Level of Consciousness Level of Consciousness: Alert Orientation: Yes Intact, Yes Orientated to Time, Yes Orientated to Place, Yes Orientated to Person - Impulse Control Impulse Control: Poor - but improving - Insight and Judgement Insight and Judgement: Poor - but improving - Medication Management Medication Management Adherence: Partial Assessment - Assessment Merits Inpatient Hospitalization: For Immediate Safety, For Stabilization, For Discharge Planning Inpatient DSM-V Dx: F25.0 Clinical Impression: This 62-year-old 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 He is extremely tense, irritable, and guarded. Plan - Plan Treatment Plan: Name: JESUS BENITEZ Birthdate: 1955 [id number] - Patient continues to be hospitalized due to non compliance, unpredictable and sexually inappropriate behavior in the community, delusional in his thinking. - Patient's medications were continued but has been partially compliant. Patient was ecouraged to comply with his medications. Patient was offered Depakote to help with recurrent sexual thoughts, mood instability and sleep disturbance. Patient will be given Ativan PO if refuse PO Depakote and if refuse PO Ativan to be given Ativan IM. - Patient next Invega Sustena IM is due 12/03/17 but will repeat EKG as last Qtc was 480. Patient constant observation to be continued while awake. - Patient will be monitored for improvement and side effects. Risk and benefits were discussed. - Patient was encouraged to continue his participation in the milieu, group and individual therapy. Medications: Current Medications Acetaminophen (Tylenol Tab*) 650 mg PO Q4H PRN PRN Reason: PAIN or TEMP > 101 F Last Admin: 11/25/17 05:21 Dose: 650 mg Al Hydrox/Mg Hydrox/Simethicone (Maalox Plus*) 30 ml PO Q4H PRN PRN Reason: INDIGESTION Divalproex Sodium (Depakote Er Tab(*)) 1,000 mg PO BEDTIME [facility] Last Admin: 12/01/17 20:50 Dose: Not Given Lorazepam (Ativan Inj*) 2 mg IM BEDTIME PRN PRN Reason: IF REFUSES PO DEPAKOTE Lorazepam (Ativan Tab(*)) 2 mg PO BID [facility] Propranolol HCl (Inderal Tab*) 10 mg PO BID [facility] Last Admin: 12/02/17 10:02 Dose: Not Given Rivaroxaban (Xarelto(*)) 20 mg PO QAM [facility] Last Admin: 12/02/17 10:02 Dose: Not Given
[2017-12-02] MEDS: Divalproex ER TAB(*) 500 MG PO SCH ×2 (15:33→21:10)
[2017-12-03] MEDS: Al Hydrox/Mg Hydrox/Simet LIQ* 30 ML UDC PO PRN (02:30)
[2017-12-03] MEDS: Rivaroxaban TAB(*) 20 MG TAB PO SCH ×2 (05:30→08:24)
[2017-12-03] MEDS: Propranolol TAB* 10 MG PO SCH ×2 (08:24→21:06)
[2017-12-03] MEDS ORDERED: LORazepam TAB(*) 1 MG PO PRN (13:18)
--- NOTE | 2017-12-03 13:27 | PN ---
Subjective - Subjective Date of Service: 12/03/17 Service Type: [id number] Hosp care 15 min low complexity Subjective: Patient continues to be struggling with mood instability, sexual thoughts and desires. Patient has been actively exercising at times, walking on the unit and was able to attend some groups. Patient did not take his po Depakote last night and had to be given Ativan IM but today did accept to take liquid form of valproic acid at bedtime. will continue to monitor improvement and side effects. Patient last EKG has increase QTc will repeat before starting antipsychotic. Objective - Appearance Appearance: Healthy Appearing Hygiene: Normal Grooming: Fairly Well Kept - Behavior Psychomotor Activities: Abnormal-Increased Exhibits Abnormal Movement: No - Attitude and Relatedness Attitude and Relatedness: Superficially Cooperative Eye Contact: Fair - Speech Quality: Unpressured Latencies: Normal Quantity: Terse - Mood Patient's Decription of Mood: "Anxious" - Affect Observed Affect: Labile Affect Consistent with: Dysphoria - Thought Process Patient's Thought Process: Goal Directed Thought Content: Yes Paranoid Ideation, No Passive Wish, No Suicidal Planning, No Homicidal Ideation - Sensorium Experiencing Hallucinations: No, Sensorium is Clear Type of Hallucinations: Visual: No, Auditory: No, Command: No - Level of Consciousness Level of Consciousness: Alert Orientation: Yes Intact, Yes Orientated to Time, Yes Orientated to Place, Yes Orientated to Person - Insight and Judgement Insight and Judgement: Poor - Group Participation Particating in Group Activities: Yes - Medication Management Medication Management Adherence: Partial Assessment - Assessment Merits Inpatient Hospitalization: For Immediate Safety, For Stabilization, For Discharge Planning Inpatient DSM-V Dx: F25.0 Clinical Impression: This 62-year-old 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 He is extremely tense, irritable, and guarded. Plan - Plan Treatment Plan: Name: JESUS BENITEZ Birthdate: 1955 [id number] - Patient continues to be hospitalized due to non compliance, unpredictable and sexually inappropriate behavior in the community, delusional in his thinking. - Patient's medications were continued but has been partially compliant. Patient was encouraged to comply with his medications. Patient agreed to take Depakene today to help with recurrent sexual thoughts, mood instability and sleep disturbance. Patient will be given Ativan PO if refuse PO Depakene and if refuse PO Ativan to be given Ativan IM. - Patient next Invega Bennie IM is due 12/03/17 but will repeat EKG as last Qtc was 480. Patient constant observation to be continued while awake. - Patient will be monitored for improvement and side effects. Risk and benefits were discussed. - Patient was encouraged to continue his participation in the milieu, group and individual therapy. Medications: Current Medications Acetaminophen (Tylenol Tab*) 650 mg PO Q4H PRN PRN Reason: PAIN or TEMP > 101 F Last Admin: 11/25/17 05:21 Dose: 650 mg Al Hydrox/Mg Hydrox/Simethicone (Maalox Plus*) 30 ml PO Q4H PRN PRN Reason: INDIGESTION Last Admin: 12/03/17 02:30 Dose: 30 ml Lorazepam (Ativan Inj*) 2 mg IM BEDTIME PRN PRN Reason: IF REFUSES PO Ativan Last Admin: 12/02/17 15:35 Dose: 2 mg Lorazepam (Ativan Tab(*)) 2 mg PO BEDTIME PRN PRN Reason: if refuses PO Depakene Propranolol HCl (Inderal Tab*) 10 mg PO BID [facility] Last Admin: 12/03/17 08:24 Dose: Not Given Rivaroxaban ([facility]arelto(*)) [facility] [place] [facility] [place] Admin: 12/03/17 08:24 Dose: Not Given Valproic Acid (Depakene Liq(*)) 500 mg PO BEDTIME [facility]
[2017-12-03] MEDS ORDERED: Valproic Acid LIQ(*) 250 MG/5 ML UDC PO SCH (21:00)
[2017-12-04] MEDS: Rivaroxaban TAB(*) 20 MG TAB PO SCH (08:12)
[2017-12-04] MEDS: Propranolol TAB* 10 MG PO SCH (08:12)
--- NOTE | 2017-12-04 13:05 | PN ---
Subjective - Subjective Date of Service: 12/04/17 Service Type: [id number] Hosp care 15 min low complexity Subjective: Patient continues to be unpredictable with his behavior, paranoid, partially compliant with his medications. Patient is still ambivalent about taking his medications and wants to have "holistic" approach towards it. Patient reportedly has been having nose bleeds and likely due to picky which left crusted blood on his upper lip. Patient took his Depakene last night and tolerated it well. Patient continues to have increase pulse rate and did not cooperate with EKG yesterday. Hospitalist consult was called to assess need for Xarelto and if any urgency in controlling pulse rate. Patient last Qtc was 480 and is now due for his next Invega Sustena, will hold for now until recommendations from Hospitalist or Welding Lead Burner. Objective - Appearance Appearance: Healthy Appearing - protruded belly Dysmorphic Features: No Hygiene: Normal Grooming: Fairly Well Kept - Behavior Psychomotor Activities: Abnormal-Increased Exhibits Abnormal Movement: No - Attitude and Relatedness Attitude and Relatedness: Superficially Cooperative Eye Contact: Poor - Speech Quality: Unpressured Latencies: Normal Quantity: Terse - Mood Patient's Decription of Mood: "Angry" - Affect Observed Affect: Labile Affect Consistent with: Euphoria - Thought Process Patient's Thought Process: Goal Directed Thought Content: Yes Paranoid Ideation, No Passive Wish, No Suicidal Planning, No Homicidal Ideation - Sensorium Experiencing Hallucinations: No, Sensorium is Clear Type of Hallucinations: Visual: No, Auditory: No, Command: No - Level of Consciousness Level of Consciousness: Alert Orientation: Yes Intact, Yes Orientated to Time, Yes Orientated to Place, Yes Orientated to Person - Impulse Control Impulse Control: Intact - Insight and Judgement Insight and Judgement: Poor - Medication Management Medication Management Adherence: Partial Assessment - Assessment Merits Inpatient Hospitalization: For Immediate Safety, For Stabilization, For Discharge Planning Inpatient DSM-V Dx: F25.0 Clinical Impression: This 62-year-old 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 He is extremely tense, irritable, and guarded. Plan - Plan Treatment Plan: Name: JESUS BENITEZ Birthdate: 1955 [id number] - Patient continues to be hospitalized due to non compliance, unpredictable and sexually inappropriate behavior in the community, delusional in his thinking. - Patient's medications were continued but has been partially compliant. Patient was encouraged to comply with his medications. Patient Depakene was increased to 750 mg at Bedtime to help with recurrent sexual thoughts, mood instability and sleep disturbance. Patient will be given Ativan PO if refuse PO Depakene and if refuse PO Ativan to be given Ativan IM. Hospitalist consult was called. - Patient next Invega Sustena IM is past due date12/03/17 as last Qtc was 480, which was 500 before that. Patient constant observation to be continued while awake and out of his room. - Patient will be monitored for improvement and side effects. Risk and benefits were discussed. - Patient was encouraged to continue his participation in the milieu, group and individual therapy. Medications: Current Medications Acetaminophen (Tylenol Tab*) 650 mg PO Q4H PRN PRN Reason: PAIN or TEMP > 101 F Last Admin: 11/25/17 05:21 Dose: 650 mg Al Hydrox/Mg Hydrox/Simethicone (Maalox Plus*) 30 ml PO Q4H PRN PRN Reason: INDIGESTION Last Admin: 12/03/17 02:30 Dose: 30 ml Lorazepam (Ativan Inj*) 2 mg IM BEDTIME PRN PRN Reason: IF REFUSES PO Ativan Last Admin: 12/02/17 15:35 Dose: 2 mg Lorazepam (Ativan Tab(*)) 2 mg PO BEDTIME PRN PRN Reason: if refuses PO Depakene Propranolol HCl (Inderal Tab*) 10 mg PO BID [facility] Last Admin: 12/04/17 08:12 Dose: Not Given Rivaroxaban (Xarelto(*)) 20 mg PO QAM [facility] Last Admin: 12/04/17 08:12 Dose: 20 mg Valproic Acid (Depakene Liq(*)) 750 mg PO BEDTIME [facility]
[2017-12-04] MEDS: Acetaminophen TAB* 325 MG PO PRN (14:28)
--- NOTE | 2017-12-04 14:28 | PN ---
Hospitalist Progress Note Date of Service: 12/04/17 Consultation requested by Psychiatrist in [facility]. Patient has history of atrial fibrillation and prolonged QT, however, he is only sporadically taking his xarelto for anticoagulation. Patient is on propranolol for essential tremor but apparently refuses any other cardiac medications for rate control. Per the records, patient is refusing most medication and is due for his next dose of IM Invega. When I introduced myself and explained that I am part of the medicine team, patient abruptly sat up and stated "Not interested" and walked away. Staff tried to talk with him again but he continued to refuse to be seen by my to discuss his cardiac meds. Given the patient's mood, I am not able to physically evaluate the patient or obtain ROS. I discussed the situation with Dr. Hernández, and explained that there are no IM options for rate control for his atrial fib. Also it is riskier to only take the xarelto sporadically. Per Dr. Hernández, the patient is willing to take "one cardiac med", as such, I would recommend toprol XL 25mg PO daily for better rate control and discontinue propranolol and xarelto. The patient's current condition is not life threatening at this time and he appears clinically stable , however, if he should decompensate, the only option would be to restrain him and insert a nasogastric tube to administer oral medications or insert an IV for parenteral medications if needed. In terms of his prolonged QTc and need for antipsychotics, I would recommend another EKG to re-evaluate the QT interval, if it is trending down (which it seems to be from the last two EKGs he has allowed) to <450, this would allow the staff to administer antipsychotics. Of all the antipsychotics, olanzapine may be a good option in terms of QTc interval, which on average is 2-6.5 milliseconds and is shorter acting. Paliperidone ER on average will increase the QTc approximately 2-4 milliseconds in it's oral form, however I need to further research of the IM injectable form has increased potential. Either in combination with risperidone and lithium will increase QTc. Aripiprazole may actually shorten the QTc which may also be an option. For now, I will order the toprol and discontinue the propranolol. The patient's plan of care will depend on his willingness to take oral medications. Thank you for involving us in your patient's care. Please reconsult as needed.
[2017-12-04] MEDS: Valproic Acid LIQ(*) 250 MG/5 ML UDC PO SCH (20:50)
[2017-12-04] MEDS: Metoprolol Succinate XL TAB* 25 MG PO SCH (20:52)
[2017-12-05] MEDS: Metoprolol Succinate XL TAB* 25 MG PO SCH (10:50)
[2017-12-05] MEDS ORDERED: LORazepam INJ* 2 MG/ML 1 ML VIAL IM PRN (12:14)
--- NOTE | 2017-12-05 12:25 | PN ---
Subjective - Subjective Date of Service: 12/05/17 Service Type: 05930 Hosp care 25 min moderate complexity Subjective: Patient continues to be unpredictable with his behavior, paranoid, partially compliant with his medications. Patient was uncooperative with interview this morning but has been insisting on discontinuing his CO. Patient wish was fulfilled but continues to resist PO medications. Patient was tried to educate about discussion and notes reviewed of hospitalist. Patient shows no interest. Patient's Xarelto was discontinued due to manager terminal compliance issues with patient. Patietn Qtc was trending down but has been resisting to obtain another Qtc. Patient Invterrence Sustena is on hold for. But will start antipsychotic least likely to alter QTc. Patient is still ambivalent about taking his medications. Patient took his Depakene last night and tolerated it well but continue to have unstable mood. Patient continues to have increase pulse rate and did not cooperate with EKG yesterday, will try to obtain it today again. Objective - Appearance Appearance: Healthy Appearing - not in acute phsycial distress Dysmorphic Features: No Hygiene: Dirty Grooming: Disheveled - Behavior Psychomotor Activities: Normal Exhibits Abnormal Movement: No - Attitude and Relatedness Attitude and Relatedness: Psychotically Related Eye Contact: Poor - Speech Quality: Unpressured Latencies: Normal Quantity: Terse - Mood Patient's Decription of Mood: "Angry" - Affect Observed Affect: Labile Affect Consistent with: Dysphoria - and irritable - Thought Process Patient's Thought Process: Goal Directed Thought Content: Yes Paranoid Ideation, No Passive Wish, No Suicidal Planning, No Homicidal Ideation - Sensorium Experiencing Hallucinations: No, Sensorium is Clear Type of Hallucinations: Visual: No, Auditory: No, Command: No - Level of Consciousness Level of Consciousness: Agitated Orientation: Yes Intact, Yes Orientated to Time, Yes Orientated to Place, Yes Orientated to Person - Impulse Control Impulse Control: Intact - Insight and Judgement Insight and Judgement: Poor - Medication Management Medication Management Adherence: Partial Assessment - Assessment Merits Inpatient Hospitalization: For Immediate Safety, For Stabilization, For Discharge Planning Inpatient DSM-V Dx: F25.0 Clinical Impression: This 62-year-old 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 He is extremely tense, irritable, and guarded. Plan - Plan Treatment Plan: Name: JESUS BENITEZ Birthdate: 1955 [id number] - Patient continues to be hospitalized due to non compliance, unpredictable and sexually inappropriate behavior in the community, delusional in his thinking. - Patient's medications were continued but has been partially compliant. Patient was encouraged to comply with his medications. Patient Depakene was continued at 750 mg at Bedtime to help with recurrent sexual thoughts, mood instability and sleep disturbance. Patient will be given Ativan PO if refuse PO Depakene and if refuse PO Ativan to be given Ativan IM. Hospitalist consult was reviewed and discussed with hospitalist. - Patient next Invega Sustena IM is past due date12/03/17 as last Qtc was 480, which was 500 before that. Patient was started on Abilify 10 mg PO daily as it least effects QTc. Patient constant observation was discontinued, will continue to monitor its need. Also EKG to be tried again today. - Patient will be monitored for improvement and side effects. Risk and benefits were discussed. - Patient was encouraged to continue his participation in the milieu, group and individual therapy. Medications: Current Medications Acetaminophen (Tylenol Tab*) 650 mg PO Q4H PRN PRN Reason: PAIN or TEMP > 101 F Last Admin: 12/04/17 14:28 Dose: 650 mg Al Hydrox/Mg Hydrox/Simethicone (Maalox Plus*) 30 ml PO Q4H PRN PRN Reason: INDIGESTION Last Admin: 12/03/17 02:30 Dose: 30 ml Aripiprazole (Abilify Tab*) 10 mg PO DAILY [facility] Lorazepam (Ativan Inj*) 2 mg IM BEDTIME PRN PRN Reason: IF REFUSES PO Ativan Last Admin: 12/02/17 15:35 Dose: 2 mg Lorazepam (Ativan Tab(*)) 2 mg PO BEDTIME PRN PRN Reason: if refuses PO Depakene Lorazepam (Ativan Tab(*)) 1 mg PO DAILY [facility] Metoprolol Succinate (Toprol Xl Tab*) 25 mg PO DAILY [facility] Last Admin: 12/05/17 10:50 Dose: Not Given Valproic Acid (Depakene Liq(*)) 750 mg PO BEDTIME [facility] Last Admin: 12/04/17 20:50 Dose: 750 mg
[2017-12-05] MEDS: LORazepam TAB(*) 1 MG PO SCH (12:44)
[2017-12-05] MEDS: ARIPiprazole TAB* 5 MG PO SCH (12:44)
[2017-12-05] MEDS: Valproic Acid LIQ(*) 250 MG/5 ML UDC PO SCH (19:49)
[2017-12-06] MEDS: LORazepam TAB(*) 1 MG PO SCH (08:03)
[2017-12-06] MEDS: ARIPiprazole TAB* 5 MG PO SCH (08:03)
[2017-12-06] MEDS: Metoprolol Succinate XL TAB* 25 MG PO SCH (08:04)
[2017-12-06] MEDS ORDERED: LORazepam INJ* 2 MG/ML 1 ML VIAL IM PRN (11:32)
--- NOTE | 2017-12-06 14:30 | PN ---
Subjective - Subjective Date of Service: 12/06/17 Service Type: [id number] Hosp care 15 min low complexity Subjective: Patient continues to be unpredictable with his behavior, paranoid, partially compliant with his medications. Patient was uncooperative with interview this morning but has been insisting on discontinuing his CO. Patient wish was fulfilled but continues to resist PO medications. Patient was tried to educate about discussion and notes reviewed of hospitalist. Patient shows no interest. 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 Patietn Qtc was trending down but has been resisting to obtain another Qtc. Patient Invterrence Sustena is on hold for. But will start antipsychotic least likely to alter QTc. Patient is still ambivalent about taking his medications. Patient took his Depakene last night and tolerated it well but continue to have unstable mood. Patient continues to have increase pulse rate and did not cooperate with EKG yesterday, will try to obtain it today again. Assessment - Assessment Inpatient DSM-V Dx: F25.0 Clinical Impression: This 62-year-old 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 He is extremely tense, irritable, and guarded. Plan - Plan Treatment Plan: Name: JESUS BENITEZ Birthdate: 1955 [id number] - Patient continues to be hospitalized due to non compliance, unpredictable and sexually inappropriate behavior in the community, delusional in his thinking. - Patient's medications were continued but has been partially compliant. Patient was encouraged to comply with his medications. Patient Depakene was continued at 750 mg at Bedtime to help with recurrent sexual thoughts, mood instability and sleep disturbance. Patient will be given Ativan PO if refuse PO Depakene and if refuse PO Ativan to be given Ativan IM. Hospitalist consult was reviewed and discussed with hospitalist. - Patient next Invterrence Sustena IM is past due date12/03/17 as last Qtc was 480, which was 500 before that. Patient was started on Abilify 10 mg PO daily as it least effects QTc. Patient constant observation was discontinued, will continue to monitor its need. Also EKG to be tried again today. - Patient will be monitored for improvement and side effects. Risk and benefits were discussed. - Patient was encouraged to continue his participation in the milieu, group and individual therapy. Medications: Current Medications Acetaminophen (Tylenol Tab*) 650 mg PO Q4H PRN PRN Reason: PAIN or TEMP > 101 F Last Admin: 12/04/17 14:28 Dose: 650 mg Al Hydrox/Mg Hydrox/Simethicone (Maalox Plus*) 30 ml PO Q4H PRN PRN Reason: INDIGESTION Last Admin: 12/03/17 02:30 Dose: 30 ml Aripiprazole (Abilify Tab*) 10 mg PO DAILY [facility] Last Admin: 12/06/17 08:03 Dose: 10 mg Clonazepam (Klonopin Tab(*)) 0.5 mg PO BID [facility] Lorazepam (Ativan Inj*) 2 mg IM BID PRN PRN Reason: if refuse po klonopin/depakene Metoprolol Succinate (Toprol Xl Tab*) 25 mg PO DAILY [facility] Last Admin: 12/06/17 08:04 Dose: 25 mg Valproic Acid (Depakene Liq(*)) 750 mg PO BEDTIME [facility] Last Admin: 12/05/17 19:49 Dose: 750 mg
--- NOTE | 2017-12-06 14:39 | PN ---
Subjective - Subjective Date of Service: 12/06/17 Service Type: [id number] Hosp care 15 min low complexity Subjective: Patient was in somewhat irritable mood but better than yesterday. Patient has been taking his medications to avoid getting IM and still has poor insight. Patient was less paranoid today but continues to be unpredictable with his behavior. Patient has been found pacing at times but less than before and has been able to manage boundaries with out requiring constant observation. Patient was again tried to educate about discussion and notes reviewed of hospitalist and need for EKG. Patient shows no interest. Patient's Xarelto was discontinued due to longterm compliance issues with patient. Patietn Qtc was trending down but has been resisting to obtain another EKG. Patient Invega Sustena is on hold for. But will start antipsychotic least likely to alter QTc. Patient is still ambivalent about taking his medications. Patient took his Depakene last night and tolerated it well and shows some improvement in mood and is resistant to increment. Patient continues to have increase pulse rate and did not cooperate with EKG yesterday, will try to obtain it today again. Objective - Appearance Appearance: Healthy Appearing Dysmorphic Features: No Hygiene: Normal Grooming: Fairly Well Kept - Behavior Psychomotor Activities: Normal Exhibits Abnormal Movement: No - Attitude and Relatedness Attitude and Relatedness: Superficially Cooperative - Speech Quality: Unpressured Latencies: Normal Quantity: Terse - Mood Patient's Decription of Mood: "Angry" - Affect Observed Affect: Tense Affect Consistent with: Dysphoria - Thought Process Patient's Thought Process: Goal Directed Thought Content: Yes Paranoid Ideation - less intense, No Passive Wish, No Suicidal Planning, No Homicidal Ideation - Sensorium Experiencing Hallucinations: No, Sensorium is Clear Type of Hallucinations: Visual: No, Auditory: No, Command: No - Level of Consciousness Level of Consciousness: Alert Orientation: Yes Intact, Yes Orientated to Time, Yes Orientated to Place, Yes Orientated to Person - Impulse Control Impulse Control: Poor - as per recent but showing fair improvement - Insight and Judgement Insight and Judgement: Poor - Medication Management Medication Management Adherence: Yes Assessment - Assessment Merits Inpatient Hospitalization: For Immediate Safety, For Stabilization, For Discharge Planning Inpatient DSM-V Dx: F25.0 Clinical Impression: This 62-year-old 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 He is extremely tense, irritable, and guarded. Plan - Plan Treatment Plan: Name: JESUS BENITEZ Birthdate: 1955 [id number] - Patient continues to be hospitalized due to non compliance, unpredictable and sexually inappropriate behavior in the community, delusional in his thinking. - Patient's medications were continued but has been partially compliant. Patient was encouraged to comply with his medications. Patient Depakene was continued at 750 mg at Bedtime to help with recurrent sexual thoughts, mood instability and sleep disturbance. Patient also started on Clonazepam 0.5 mg BID to help with anxity, pacing and racing thoughts and if refuse PO to be given Ativan IM. - Patient next Invega Sustena IM is past due date12/03/17 as last Qtc was 480, which was 500 before that. Patient was started on Abilify 10 mg PO daily as it least effects QTc. Patient constant observation was discontinued, will continue to monitor its need. Also EKG to be tried again today. - Patient will be monitored for improvement and side effects. Risk and benefits were discussed. - Patient was encouraged to continue his participation in the milieu, group and individual therapy. Medications: Current Medications Acetaminophen (Tylenol Tab*) 650 mg PO Q4H PRN PRN Reason: PAIN or TEMP > 101 F Last Admin: 12/04/17 14:28 Dose: 650 mg Al Hydrox/Mg Hydrox/Simethicone (Maalox Plus*) 30 ml PO Q4H PRN PRN Reason: INDIGESTION Last Admin: 12/03/17 02:30 Dose: 30 ml Aripiprazole (Abilify Tab*) 10 mg PO DAILY [facility] Last Admin: 12/06/17 08:03 Dose: 10 mg Clonazepam (Klonopin Tab(*)) 0.5 mg PO BID [facility] Lorazepam (Ativan Inj*) 2 mg IM BID PRN PRN Reason: if refuse po klonopin/depakene Metoprolol Succinate (Toprol Xl Tab*) 25 mg PO DAILY [facility] Last Admin: 12/06/17 08:04 Dose: 25 mg Valproic Acid (Depakene Liq(*)) 750 mg PO BEDTIME [facility] Last Admin: 12/05/17 19:49 Dose: 750 mg
[2017-12-06] MEDS: clonazePAM TAB(*) 0.5 MG PO SCH (19:40)
[2017-12-06] MEDS: Valproic Acid LIQ(*) 250 MG/5 ML UDC PO SCH (19:43)
[2017-12-07] MEDS: Metoprolol Succinate XL TAB* 25 MG PO SCH ×2 (08:07→08:25)
[2017-12-07] MEDS: ARIPiprazole TAB* 5 MG PO SCH ×2 (08:07→08:25)
[2017-12-07] MEDS: clonazePAM TAB(*) 0.5 MG PO SCH ×4 (08:08→20:11)
[2017-12-07] MEDS: Valproic Acid LIQ(*) 250 MG/5 ML UDC PO SCH (20:08)
[2017-12-08] MEDS: Metoprolol Succinate XL TAB* 25 MG PO SCH (09:19)
[2017-12-08] MEDS: clonazePAM TAB(*) 0.5 MG PO SCH ×2 (09:19→20:58)
[2017-12-08] MEDS: ARIPiprazole TAB* 5 MG PO SCH (09:19)
[2017-12-08] MEDS: Valproic Acid LIQ(*) 250 MG/5 ML UDC PO SCH (20:26)
[2017-12-09] MEDS: Acetaminophen TAB* 325 MG PO PRN (04:05)
[2017-12-09] MEDS: ARIPiprazole TAB* 5 MG PO SCH (08:50)
[2017-12-09] MEDS: clonazePAM TAB(*) 0.5 MG PO SCH ×2 (08:50→21:48)
[2017-12-09] MEDS: Metoprolol Succinate XL TAB* 25 MG PO SCH (11:42)
--- NOTE | 2017-12-09 12:32 | PN ---
Subjective - Subjective Date of Service: 12/09/17 Service Type: 70620 Hosp care 15 min low complexity Subjective: Patient was in somewhat irritable mood today and refused to talk to the provider. Patient has been pacing on the unit aimlessly and appear internally preoccupied in his thoughts. Patient has been taking his medications to avoid getting IM but still has poor insight and need to comply with it. Patient did agree to get his EKG which showed down trend in his QTc (464) on Abilify 10 mg and no physical symptoms were reported. Patient has been taking his Lopressor and heart rate has been in better control. . Objective - Appearance Appearance: Healthy Appearing Dysmorphic Features: No Hygiene: Normal Grooming: Fairly Well Kept - Behavior Psychomotor Activities: Normal Exhibits Abnormal Movement: No - Attitude and Relatedness Attitude and Relatedness: Psychotically Related Eye Contact: Poor - Mood Patient's Decription of Mood: irritable - Affect Observed Affect: Tense - Thought Process Thought Content: Yes Paranoid Ideation - Level of Consciousness Level of Consciousness: Agitated - Impulse Control Impulse Control: Poor - Insight and Judgement Insight and Judgement: Poor - Medication Management Medication Management Adherence: Yes Assessment - Assessment Merits Inpatient Hospitalization: For Immediate Safety, For Stabilization, For Discharge Planning Inpatient DSM-V Dx: F25.0 Clinical Impression: This 62-year-old 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 He is extremely tense, irritable, and guarded. MHU: Problem List - Patient Problems (1) Schizoaffective disorder Current Visit: Yes Status: Acute Code(s): F25.9 - SCHIZOAFFECTIVE DISORDER, UNSPECIFIED SNOMED Code(s): 76998080 Plan - Plan Treatment Plan: Name: JESUS BENITEZ Birthdate: 1955 [id number] - Patient continues to be hospitalized due to non compliance, unpredictable and sexually inappropriate behavior in the community, delusional in his thinking. - Patient's medications were continued but has been partially compliant. Patient was encouraged to comply with his medications. Patient Depakene was increased to 1000 mg at Bedtime to help with recurrent sexual thoughts, mood instability and sleep disturbance. Patient was continued on Clonazepam 0.5 mg BID to help with anxiety, pacing and racing thoughts and if refuse PO to be given Ativan IM. - Patient next Invega Sustena IM is past due date12/03/17 as last Qtc was 480, which was 500 before that. Patient was started on Abilify 10 mg PO daily and tolerating it well and last QTc measured was 464 and patient has been asymptomatic. - Patient will be monitored for improvement and side effects. Risk and benefits were discussed. - Patient was encouraged to continue his participation in the milieu, group and individual therapy. Medications: Current Medications Acetaminophen (Tylenol Tab*) 650 mg PO Q4H PRN PRN Reason: PAIN or TEMP > 101 F Last Admin: 12/09/17 04:05 Dose: 650 mg Al Hydrox/Mg Hydrox/Simethicone (Maalox Plus*) 30 ml PO Q4H PRN PRN Reason: INDIGESTION Last Admin: 12/03/17 02:30 Dose: 30 ml Aripiprazole (Abilify Tab*) 10 mg PO DAILY [facility] Last Admin: 12/09/17 08:50 Dose: 10 mg Clonazepam (Klonopin Tab(*)) 0.5 mg PO BID [facility] Last Admin: 12/09/17 08:50 Dose: 0.5 mg Lorazepam (Ativan Inj*) 2 mg IM BID PRN PRN Reason: if refuse po klonopin/depakene Metoprolol Succinate (Toprol Xl Tab*) 25 mg PO DAILY [facility] Last Admin: 12/09/17 11:42 Dose: 25 mg Valproic Acid (Depakene Liq(*)) 1,000 mg PO BEDTIME [facility]
[2017-12-09] MEDS: Valproic Acid LIQ(*) 250 MG/5 ML UDC PO SCH (21:48)
[2017-12-10] MEDS: clonazePAM TAB(*) 0.5 MG PO SCH ×2 (08:38→23:02)
[2017-12-10] MEDS: ARIPiprazole TAB* 5 MG PO SCH (08:38)
[2017-12-10] MEDS: Metoprolol Succinate XL TAB* 25 MG PO SCH (08:38)
--- NOTE | 2017-12-10 11:58 | PN ---
Subjective - Subjective Date of Service: 12/10/17 Service Type: [id number] Hosp care 15 min low complexity Subjective: Patient continues to be irritable in his mood and delusionali n his thinking making paranoid and persecutory comments that the provider is "killing him with medications" and patient is better off with just "food and exercise" and don't need medications. Patient is clear about no taking medications if he was not forced due to judges order. Patient has been noticed to be pacing on the unit aimlessly and appear internally preoccupied in his thoughts. Patient has poor insight and judgment. Patient requires slow titration of his medications and EKG monitoring due to his prolong Qtc. Patient has been taking his Lopressor and heart rate has been in better control. Patient has court today for his request of discharge and team is requesting for retention and clearance to be transferred to state facility as patient is showing minimal improvement and will require longer term hospitalization. Objective - Appearance Appearance: Healthy Appearing Dysmorphic Features: No Hygiene: Normal Grooming: Fairly Well Kept - Behavior Psychomotor Activities: Normal Exhibits Abnormal Movement: No - Attitude and Relatedness Attitude and Relatedness: Psychotically Related Eye Contact: Poor - Speech Quality: Unpressured Latencies: Normal Quantity: Terse - Mood Patient's Decription of Mood: "Angry" - Affect Observed Affect: Labile Affect Consistent with: Dysphoria - Thought Process Patient's Thought Process: Goal Directed Thought Content: Yes Paranoid Ideation, No Passive Wish, No Suicidal Planning, No Homicidal Ideation - Sensorium Experiencing Hallucinations: No, Sensorium is Clear Type of Hallucinations: Visual: No, Auditory: No, Command: No - Level of Consciousness Level of Consciousness: Agitated Orientation: Yes Intact, Yes Orientated to Time, Yes Orientated to Place, Yes Orientated to Person - Impulse Control Impulse Control: Poor - but improving - Insight and Judgement Insight and Judgement: Poor - Medication Management Medication Management Adherence: Yes Assessment - Assessment Merits Inpatient Hospitalization: For Immediate Safety, For Stabilization, For Discharge Planning Inpatient DSM-V Dx: F25.0 Clinical Impression: This 62-year-old 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 He is extremely tense, irritable, and guarded. MHU: Problem List - Patient Problems (1) Schizoaffective disorder Current Visit: Yes Status: Acute Code(s): F25.9 - SCHIZOAFFECTIVE DISORDER, UNSPECIFIED SNOMED Code(s): 57671591 Plan - Plan Treatment Plan: Name: JESUS BENITEZ Birthdate: 1955 [id number] - Patient continues to be hospitalized due to non compliance, unpredictable and sexually inappropriate behavior in the community, delusional in his thinking. - Patient's medications were continued but has been partially compliant. Patient was encouraged to comply with his medications. Patient Depakene was conitnued 1000 mg at Bedtime to help with recurrent sexual thoughts, mood instability and sleep disturbance. Patient was continued on Clonazepam 0.5 mg BID to help with anxiety, pacing and racing thoughts and if refuse PO to be given Ativan IM. - Patient next Invega Sustena IM is past due date12/03/17 as last Qtc was 480, which was 500 before that. Patient was started on Abilify 10 mg PO daily and tolerating it well and last QTc measured was 464 and patient has been asymptomatic. - Patient will be monitored for improvement and side effects. Risk and benefits were discussed. - Patient was encouraged to continue his participation in the milieu, group and individual therapy. Medications: Current Medications Acetaminophen (Tylenol Tab*) 650 mg PO Q4H PRN PRN Reason: PAIN or TEMP > 101 F Last Admin: 12/09/17 04:05 Dose: 650 mg Al Hydrox/Mg Hydrox/Simethicone (Maalox Plus*) 30 ml PO Q4H PRN PRN Reason: INDIGESTION Last Admin: 12/03/17 02:30 Dose: 30 ml Aripiprazole (Abilify Tab*) 10 mg PO DAILY [facility] Last Admin: 12/10/17 08:38 Dose: 10 mg Clonazepam (Klonopin Tab(*)) 0.5 mg PO BID [facility] Last Admin: 12/10/17 08:38 Dose: 0.5 mg Lorazepam (Ativan Inj*) 2 mg IM BID PRN PRN Reason: if refuse po klonopin/depakene Metoprolol Succinate (Toprol Xl Tab*) 25 mg PO DAILY [facility] Last Admin: 12/10/17 08:38 Dose: 25 mg Valproic Acid (Depakene Liq(*)) 1,000 mg PO BEDTIME [facility] Last Admin: 12/09/17 21:48 Dose: 1,000 mg
[2017-12-10] MEDS: Valproic Acid LIQ(*) 250 MG/5 ML UDC PO SCH (23:02)
[2017-12-11] MEDS: Metoprolol Succinate XL TAB* 25 MG PO SCH (08:03)
[2017-12-11] MEDS: clonazePAM TAB(*) 0.5 MG PO SCH ×2 (08:03→20:34)
[2017-12-11] MEDS: ARIPiprazole TAB* 5 MG PO SCH (08:03)
--- NOTE | 2017-12-11 13:14 | PN ---
Subjective - Subjective Date of Service: 12/11/17 Service Type: [id number] Hosp care 15 min low complexity Subjective: Patient was in better mood today and less delusional in his thinking, making less paranoid and persecutory comments. Patient during the hearing accepted that he has a diagnosis of schizoaffective Disorder and would continue with his medications. Patient has been noticed to be pacing less on the unit and appear less internally preoccupied in his thoughts. Patient reports that he has better self control with medications. Patient has shown some improvement in insight and judgment. Patient requires slow titration of his medications and EKG monitoring due to his prolong Qtc, will get another EKG tomorrow. Patient has been taking his Lopressor and heart rate has been in better control. Patient was cleared for retention and referral to [facility] as he requires longer term hospitalization for stabilization. Objective - Appearance Appearance: Healthy Appearing Dysmorphic Features: No Hygiene: Normal Grooming: Fairly Well Kept - Behavior Psychomotor Activities: Normal Exhibits Abnormal Movement: No - Attitude and Relatedness Attitude and Relatedness: Superficially Cooperative Eye Contact: Fair - Speech Quality: Unpressured Latencies: Normal Quantity: Appropriate - Mood Patient's Decription of Mood: "Fine" - less irritable - Affect Observed Affect: Fair Affect Consistent with: Dysphoria - Thought Process Patient's Thought Process: Goal Directed Thought Content: Yes Paranoid Ideation - less intense, No Passive Wish, No Suicidal Planning, No Homicidal Ideation - Sensorium Experiencing Hallucinations: No, Sensorium is Clear Type of Hallucinations: Visual: No, Auditory: No, Command: No - Level of Consciousness Level of Consciousness: Alert Orientation: Yes Intact, Yes Orientated to Time, Yes Orientated to Place, Yes Orientated to Person - Impulse Control Impulse Control: Intact - Insight and Judgement Insight and Judgement: Poor - but improving - Group Participation Particating in Group Activities: Yes - Medication Management Medication Management Adherence: Yes Assessment - Assessment Merits Inpatient Hospitalization: For Immediate Safety, For Stabilization, For Discharge Planning Inpatient DSM-V Dx: F25.0 Clinical Impression: This 62-year-old 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 He is extremely tense, irritable, and guarded. MHU: Problem List - Patient Problems (1) Schizoaffective disorder Current Visit: Yes Status: Acute Code(s): F25.9 - SCHIZOAFFECTIVE DISORDER, UNSPECIFIED SNOMED Code(s): 06458281 Plan - Plan Treatment Plan: Name: JESUS BENITEZ Birthdate: 1955 [id number] - Patient continues to be hospitalized due to non compliance, unpredictable and sexually inappropriate behavior in the community, delusional in his thinking. - Patient's medications were continued but has been partially compliant. Patient was encouraged to comply with his medications. Patient has been showing improvement and Depakene was continued at 1000 mg at Bedtime to help with recurrent sexual thoughts, mood instability and sleep disturbance. Patient was continued on Clonazepam 0.5 mg BID to help with anxiety, pacing and racing thoughts and if refuse PO to be given Ativan IM. - Patient next Invega Sustena IM is past due date12/03/17 as last Qtc was 480, which was 500 before that. Patient was started on Abilify 10 mg PO daily and tolerating it well and last QTc measured was 464 and patient has been asymptomatic. Will repeat EKG tomorrow for QTc . - Patient will be monitored for improvement and side effects. Risk and benefits were discussed. - Patient was encouraged to continue his participation in the milieu, group and individual therapy. Medications: Current Medications Acetaminophen (Tylenol Tab*) 650 mg PO Q4H PRN PRN Reason: PAIN or TEMP > 101 F Last Admin: 12/09/17 04:05 Dose: 650 mg Al Hydrox/Mg Hydrox/Simethicone (Maalox Plus*) 30 ml PO Q4H PRN PRN Reason: INDIGESTION Last Admin: 12/03/17 02:30 Dose: 30 ml Aripiprazole (Abilify Tab*) 10 mg PO DAILY [facility] Last Admin: 12/11/17 08:03 Dose: 10 mg Clonazepam (Klonopin Tab(*)) 0.5 mg PO BID [facility] Last Admin: 12/11/17 08:03 Dose: 0.5 mg Lorazepam (Ativan Inj*) 2 mg IM BID PRN PRN Reason: if refuse po klonopin/depakene Metoprolol Succinate (Toprol Xl Tab*) 25 mg PO DAILY [facility] Last Admin: 12/11/17 08:03 Dose: 25 mg Valproic Acid (Depakene Liq(*)) 1,000 mg PO BEDTIME [facility] Last Admin: 12/10/17 23:02 Dose: 1,000 mg
[2017-12-11] MEDS: Valproic Acid LIQ(*) 250 MG/5 ML UDC PO SCH (20:42)
[2017-12-12] MEDS: ARIPiprazole TAB* 5 MG PO SCH (08:07)
[2017-12-12] MEDS: clonazePAM TAB(*) 0.5 MG PO SCH ×2 (08:07→21:20)
[2017-12-12] MEDS: Metoprolol Succinate XL TAB* 25 MG PO SCH (08:08)
--- NOTE | 2017-12-12 14:48 | PN ---
Subjective - Subjective Date of Service: 12/12/17 Service Type: [id number] Hosp care 15 min low complexity Subjective: Patient was in better mood today and less delusional in his thinking, making less paranoid and persecutory comments. Patient has been noticed to be pacing less on the unit and appear less internally preoccupied in his thoughts. Patient reports that he has better self control with medications. Patient has shown some improvement in insight and judgment. Patient requires slow titration of his medications and EKG monitoring due to his prolong Qtc, ekg today reflected reduction in Qtc to 450's. Patient has been taking his Lopressor and heart rate has been in better control. Patient was cleared for retention and referral to [facility] facility as he requires longer term hospitalization for stabilization. Objective - Appearance Appearance: Healthy Appearing Dysmorphic Features: No Hygiene: Normal Grooming: Fairly Well Kept - Behavior Psychomotor Activities: Normal Exhibits Abnormal Movement: No - Attitude and Relatedness Attitude and Relatedness: Superficially Cooperative Eye Contact: Fair - Speech Quality: Unpressured Latencies: Normal Quantity: Terse - Mood Patient's Decription of Mood: "Fine" - Affect Observed Affect: Fair Affect Consistent with: Dysphoria - Thought Process Patient's Thought Process: Goal Directed Thought Content: Yes Paranoid Ideation - towards others on the unit that they can hear him when asked about his sexual thougths, but reprots that has better self control with medications, No Passive Wish, No Suicidal Planning, No Homicidal Ideation - Sensorium Experiencing Hallucinations: No, Sensorium is Clear Type of Hallucinations: Visual: No, Auditory: No, Command: No - Level of Consciousness Level of Consciousness: Alert Orientation: Yes Intact, Yes Orientated to Time, Yes Orientated to Place, Yes Orientated to Person - Impulse Control Impulse Control: Intact - Insight and Judgement Insight and Judgement: Poor - but improving - Medication Management Medication Management Adherence: Yes Assessment - Assessment Merits Inpatient Hospitalization: For Immediate Safety, For Stabilization, For Discharge Planning Inpatient DSM-V Dx: F25.0 Clinical Impression: This 62-year-old 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 He is extremely tense, irritable, and guarded. MHU: Problem List - Patient Problems (1) Schizoaffective disorder Current Visit: Yes Status: Acute Code(s): F25.9 - SCHIZOAFFECTIVE DISORDER, UNSPECIFIED SNOMED Code(s): 11381186 Plan - Plan Treatment Plan: Name: JESUS BENITEZ Birthdate: 1955 [id number] - Patient continues to be hospitalized due to non compliance, unpredictable and sexually inappropriate behavior in the community, delusional in his thinking. - Patient's medications were continued but has been partially compliant. Patient was encouraged to comply with his medications. Patient has been showing improvement and Depakene was continued at 1000 mg at Bedtime to help with recurrent sexual thoughts, mood instability and sleep disturbance. Patient was continued on Clonazepam 0.5 mg BID to help with anxiety, pacing and racing thoughts and if refuse PO to be given Ativan IM. -Patient needs Valproic Acid level, CBC, CMP to be drawn tomorrow morning. - Patient Qtc was in 450's today will increase Abilify to 15 mg PO QAM and continue to monitor improvement. . - Patient will be monitored for improvement and side effects. Risk and benefits were discussed. - Patient was encouraged to continue his participation in the milieu, group and individual therapy. Medications: Current Medications Acetaminophen (Tylenol Tab*) 650 mg PO Q4H PRN PRN Reason: PAIN or TEMP > 101 F Last Admin: 12/09/17 04:05 Dose: 650 mg Al Hydrox/Mg Hydrox/Simethicone (Maalox Plus*) 30 ml PO Q4H PRN PRN Reason: INDIGESTION Last Admin: 12/03/17 02:30 Dose: 30 ml Aripiprazole (Abilify Tab*) 15 mg PO DAILY [facility] Clonazepam (Klonopin Tab(*)) 0.5 mg PO BID [facility] Last Admin: 12/12/17 08:07 Dose: 0.5 mg Lorazepam (Ativan Inj*) 2 mg IM BID PRN PRN Reason: if refuse po klonopin/depakene Metoprolol Succinate (Toprol Xl Tab*) 25 mg PO DAILY [facility] Last Admin: 12/12/17 08:08 Dose: 25 mg Valproic Acid (Depakene Liq(*)) 1,000 mg PO BEDTIME [facility] Last Admin: 12/11/17 20:42 Dose: 1,000 mg
[2017-12-12] MEDS: Valproic Acid LIQ(*) 250 MG/5 ML UDC PO SCH (21:21)
[2017-12-13] MEDS: ARIPiprazole TAB* 15 MG PO SCH (09:06)
[2017-12-13] MEDS: clonazePAM TAB(*) 0.5 MG PO SCH ×2 (09:06→22:12)
[2017-12-13] MEDS: Metoprolol Succinate XL TAB* 25 MG PO SCH (09:06)
--- NOTE | 2017-12-13 12:34 | PN ---
Subjective - Subjective Date of Service: 12/13/17 Service Type: [id number] Hosp care 15 min low complexity Subjective: Patient has been showing improvement, less instability in mood and he was in better mood today as well and less delusional in his thinking, did not make any paranoid and persecutory comments. Patient was questioning about his need to stay in the hospital as he assured his compliance and is noticing good improvement in his mood and thinkings. Patient agrees to follow up with his ACT team and treatment offered. Patient has been noticed to be pacing less on the unit and less internally preoccupied in his thoughts. Patient reports that he has better self control with medication and he likes that. Patient has shown some improvement in insight and judgment. Patient requires slow titration of his medications and EKG monitoring due to his prolong Qtc, ekg to be repeated again on Saturday after increment in Abilify. Patient has been taking his Lopressor and heart rate has been in better control. Patient was cleared for retention and referral to [facility] as he requires longer term hospitalization for stabilization. Objective - Appearance Appearance: Healthy Appearing Dysmorphic Features: No Hygiene: Normal Grooming: Fairly Well Kept - Behavior Psychomotor Activities: Normal Exhibits Abnormal Movement: No - Attitude and Relatedness Attitude and Relatedness: Cooperative Eye Contact: Fair - Speech Quality: Unpressured Latencies: Normal Quantity: Terse - but improving - Mood Patient's Decription of Mood: "Fine" - Affect Observed Affect: Fair - Thought Process Patient's Thought Process: Goal Directed Thought Content: Yes Paranoid Ideation - less, No Passive Wish, No Suicidal Planning, No Homicidal Ideation - Sensorium Experiencing Hallucinations: No, Sensorium is Clear Type of Hallucinations: Visual: No, Auditory: No, Command: No - Level of Consciousness Level of Consciousness: Alert Orientation: Yes Intact, Yes Orientated to Time, Yes Orientated to Place, Yes Orientated to Person - Impulse Control Impulse Control: Intact - Insight and Judgement Insight and Judgement: Fair - showing improvement from before - Medication Management Medication Management Adherence: Yes Assessment - Assessment Merits Inpatient Hospitalization: For Immediate Safety, For Stabilization, For Discharge Planning Inpatient DSM-V Dx: F25.0 Clinical Impression: This 62-year-old 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 He is extremely tense, irritable, and guarded. MHU: Problem List - Patient Problems (1) Schizoaffective disorder Current Visit: Yes Status: Acute Code(s): F25.9 - SCHIZOAFFECTIVE DISORDER, UNSPECIFIED SNOMED Code(s): 20407817 Plan - Plan Treatment Plan: Name: JESUS BENITEZ Birthdate: 1955 [id number] - Patient continues to be hospitalized due to non compliance, unpredictable and sexually inappropriate behavior in the community, delusional in his thinking. - Patient's medications were continued but has been partially compliant. Patient was encouraged to comply with his medications. Patient has been showing improvement and Depakene was continued at 1000 mg at Bedtime to help with recurrent sexual thoughts, mood instability and sleep disturbance. Patient was continued on Clonazepam 0.5 mg BID to help with anxiety, pacing and racing thoughts. -Patient needs Valproic Acid level, CBC, CMP refused it today and stated if it can be done after break fast. Patient will done tomorrow morning. - Abilify at 15 mg PO QAM, will obtain EKG on Saturday and continue to monitor improvement. research worker encyclopedia to assist with discharge planning if patient improves before transfer to state facility. - Patient will be monitored for improvement and side effects. Risk and benefits were discussed. - Patient was encouraged to continue his participation in the milieu, group and individual therapy. Medications: Current Medications Acetaminophen (Tylenol Tab*) 650 mg PO Q4H PRN PRN Reason: PAIN or TEMP > 101 F Last Admin: 12/09/17 04:05 Dose: 650 mg Al Hydrox/Mg Hydrox/Simethicone (Maalox Plus*) 30 ml PO Q4H PRN PRN Reason: INDIGESTION Last Admin: 12/03/17 02:30 Dose: 30 ml Aripiprazole (Abilify Tab*) 15 mg PO DAILY [facility] Last Admin: 12/13/17 09:06 Dose: 15 mg Clonazepam (Klonopin Tab(*)) 0.5 mg PO BID [facility] Last Admin: 12/13/17 09:06 Dose: 0.5 mg Metoprolol Succinate (Toprol Xl Tab*) 25 mg PO DAILY [facility] Last Admin: 12/13/17 09:06 Dose: 25 mg Valproic Acid (Depakene Liq(*)) 1,000 mg PO BEDTIME [facility] Last Admin: 12/12/17 21:21 Dose: 1,000 mg
[2017-12-13] MEDS: Valproic Acid LIQ(*) 250 MG/5 ML UDC PO SCH (22:11)
[2017-12-14] MEDS: Al Hydrox/Mg Hydrox/Simet LIQ* 30 ML UDC PO PRN
[2017-12-14 07:41] LABS: ABS Basophils 0 10^3/ul (0-0.2); ABS Eosinophils 0.1 10^3/ul (0-0.6); ABS Lymphocytes 1.2 10^3/ul (1.0-4.8); ABS Monocytes 0.5 10^3/ul (0-0.8); ABS Nucleated RBC 0 10^3/ul; Eosinophil % 2.4 % (0-6); Hematocrit 40 % (42-52); Hemoglobin 14.2 g/dl (14.0-18.0); Lymphocyte % 30.9 % (25-47); Mean Corpuscular HGB Conc 36 g/dl (31-36); Mean Corpuscular Hemoglobin 35 pg (27-31); Mean Corpuscular Volume 98 fL (80-94); Mean Platelet Volume 9.7 fL (7.4-10.4); Nucleated Red Blood Cells % 0; Platelet Count 115 10^3/ul (150-450); Red Cell Distribution Width 14 % (10.5-15); White Blood Count 3.8 10^3/ul (3.5-10.8)
[2017-12-14] MEDS: Metoprolol Succinate XL TAB* 25 MG PO SCH (08:12)
[2017-12-14] MEDS: clonazePAM TAB(*) 0.5 MG PO SCH ×2 (08:12→21:48)
[2017-12-14] MEDS: ARIPiprazole TAB* 15 MG PO SCH (08:12)
[2017-12-14] MEDS: Valproic Acid LIQ(*) 250 MG/5 ML UDC PO SCH (21:47)
[2017-12-15] MEDS: Metoprolol Succinate XL TAB* 25 MG PO SCH (08:34)
[2017-12-15] MEDS: clonazePAM TAB(*) 0.5 MG PO SCH ×2 (08:34→21:51)
[2017-12-15] MEDS: ARIPiprazole TAB* 15 MG PO SCH (08:34)
[2017-12-15] MEDS: Valproic Acid LIQ(*) 250 MG/5 ML UDC PO SCH (21:51)
[2017-12-16] MEDS: ARIPiprazole TAB* 15 MG PO SCH (08:14)
[2017-12-16] MEDS: Metoprolol Succinate XL TAB* 25 MG PO SCH (08:14)
[2017-12-16] MEDS: clonazePAM TAB(*) 0.5 MG PO SCH ×2 (08:15→21:10)
--- NOTE | 2017-12-16 14:56 | PN ---
Subjective - Subjective Date of Service: 12/16/17 Service Type: [id number] Hosp care 15 min low complexity Subjective: Patient has been showing ongoing improvement,appear depressed today and less delusional in his thinking, did not make any paranoid and persecutory comments today. Patient was questioning about his need to stay in the hospital as he assured his compliance and is noticing good improvement in his mood and thinkings. Patient agrees to follow up with his ACT team and treatment offered. Patient has been noticed to be pacing less on the unit and less internally preoccupied in his thoughts. Patient had difficulty with his sleep last night but insist on lowering dose of Clonazepam for unknown reason and also asking Depakene to be lowered and making excuses that taste is is not good. Patient has shown some improvement in insight and judgment but fluctuates. Patient EKG monitoring dsiplayed <450 Qtc with 15 mg of Abilify. Patient has been taking his Lopressor and heart rate has been in better control. Patient was cleared for retention and [facility]. Objective - Appearance Appearance: Healthy Appearing Dysmorphic Features: No Hygiene: Normal Grooming: Fairly Well Kept - Behavior Psychomotor Activities: Normal - Attitude and Relatedness Attitude and Relatedness: Cooperative Eye Contact: Fair - Speech Quality: Unpressured Latencies: Normal Quantity: Appropriate - Mood Patient's Decription of Mood: "Fine" - Affect Observed Affect: Fair Affect Consistent with: Dysphoria - Thought Process Thought Content: No Passive Wish, No Suicidal Planning, No Homicidal Ideation, No Paranoid Ideation - Sensorium Experiencing Hallucinations: No, Sensorium is Clear Type of Hallucinations: Visual: No, Auditory: No, Command: No - Level of Consciousness Level of Consciousness: Alert Orientation: Yes Intact, Yes Orientated to Time, Yes Orientated to Place, Yes Orientated to Person - Impulse Control Impulse Control: Intact - Insight and Judgement Insight and Judgement: Poor - but improving overtime - Medication Management Medication Management Adherence: Yes Assessment - Assessment Merits Inpatient Hospitalization: For Immediate Safety, For Stabilization, For Discharge Planning Inpatient DSM-V Dx: F25.0 Clinical Impression: This 62-year-old 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 He is extremely tense, irritable, and guarded. U: Problem List - Patient Problems (1) Schizoaffective disorder Current Visit: Yes Status: Acute Code(s): F25.9 - SCHIZOAFFECTIVE DISORDER, UNSPECIFIED SNOMED Code(s): 93351910 Plan - Plan Treatment Plan: Name: JESUS EBNITEZ Birthdate: 1955 [id number] - Patient continues to be hospitalized due to non compliance, unpredictable and sexually inappropriate behavior in the community, delusional in his thinking. - Patient's medications were continued but has been partially compliant. Patient was encouraged to comply with his medications. Patient has been showing improvement and Depakene was continued at 1000 mg at Bedtime to help with recurrent sexual thoughts, mood instability and sleep disturbance. Patient Clonazepam to be reduced to 0.25 mg BID to help with anxiety, pacing and racing thoughts as per patient's request. -Patient Valproic Acid level was 85, CBC, CMP were grossly with in normal limits. - Abilify at 15 mg PO QAM, EKG with in normal limits. boil off worker to assist with discharge planning if patient improves before transfer to state facility. - Patient will be monitored for improvement and side effects. Risk and benefits were discussed. - Patient was encouraged to continue his participation in the milieu, group and individual therapy. Medications: Current Medications Acetaminophen (Tylenol Tab*) 650 mg PO Q4H PRN PRN Reason: PAIN or TEMP > 101 F Last Admin: 12/09/17 04:05 Dose: 650 mg Al Hydrox/Mg Hydrox/Simethicone (Maalox Plus*) 30 ml PO Q4H PRN PRN Reason: INDIGESTION Last Admin: 12/14/17 00:00 Dose: 30 ml Aripiprazole (Abilify Tab*) 15 mg PO DAILY [facility] BEDS AT [facility] Last Admin: 12/16/17 08:14 Dose: 15 mg Clonazepam (Klonopin Tab(*)) 0.5 mg PO BID [facility] 234 BEDS AT [facility] Last Admin: 12/16/17 08:15 Dose: 0.5 mg Metoprolol Succinate (Toprol Xl Tab*) 25 mg PO DAILY [facility] 234 BEDS [facility] Last Admin: 12/16/17 08:14 Dose: 25 mg Valproic Acid (Depakene Liq(*)) 1,000 mg PO BEDTIME [facility] 234 BEDS AT [facility] Last Admin: 12/15/17 21:51 Dose: 1,000 mg
[2017-12-16] MEDS: Valproic Acid LIQ(*) 250 MG/5 ML UDC PO SCH (21:10)
[2017-12-17] MEDS: clonazePAM TAB(*) 0.5 MG PO SCH ×2 (08:01→21:28)
[2017-12-17] MEDS: ARIPiprazole TAB* 15 MG PO SCH (08:01)
[2017-12-17] MEDS: Metoprolol Succinate XL TAB* 25 MG PO SCH (08:01)
[2017-12-17] MEDS: Valproic Acid LIQ(*) 250 MG/5 ML UDC PO SCH (21:30)
[2017-12-18] MEDS: clonazePAM TAB(*) 0.5 MG PO SCH ×2 (08:13→21:13)
[2017-12-18] MEDS: ARIPiprazole TAB* 15 MG PO SCH (08:13)
[2017-12-18] MEDS: Metoprolol Succinate XL TAB* 25 MG PO SCH (08:13)
--- NOTE | 2017-12-18 12:55 | PN ---
Subjective - Subjective Date of Service: 12/18/17 Service Type: [id number] Hosp care 15 min low complexity Subjective: Patient appear sad and depressed but has been less delusional in his thinking, did not make any paranoid and persecutory comments today. But continues to have difficulty having insight into his medical and psychiatric illness. Patient was making statement of not having medical illness. Patient compliance on outpatient basis is a question even though he agrees to follow up with ACT team. Patient resisting increment in Abilify or switching to injectable even though was educated that EKG has come out to be normal. Patient has been noticed to be stressed and internally preoccupied in his thoughts. Patient wants to continue with low dose Clonazepam and oppose to increase at this time. Patient has shown some improvement but fluctuates and currently accepted at [facility] for longer term hospitalization for further stabilization and transitioning back into the community. Patient has been taking his Lopressor and heart rate has been in better control. Objective - Appearance Appearance: Healthy Appearing Dysmorphic Features: No Hygiene: Normal Grooming: Fairly Well Kept - Behavior Psychomotor Activities: Normal Exhibits Abnormal Movement: No - Attitude and Relatedness Attitude and Relatedness: Cooperative Eye Contact: Fair - Speech Quality: Unpressured Latencies: Normal Quantity: Appropriate - Mood Patient's Decription of Mood: "Sad" - Affect Observed Affect: Fair Affect Consistent with: Dysphoria - Thought Process Patient's Thought Process: Goal Directed Thought Content: No Passive Wish, No Suicidal Planning, No Homicidal Ideation, No Paranoid Ideation - Sensorium Experiencing Hallucinations: No, Sensorium is Clear Type of Hallucinations: Visual: No, Auditory: No, Command: No - Level of Consciousness Level of Consciousness: Alert Orientation: Yes Intact, Yes Orientated to Time, Yes Orientated to Place, Yes Orientated to Person - Impulse Control Impulse Control: Intact - Insight and Judgement Insight and Judgement: Poor - but improving - Medication Management Medication Management Adherence: Yes Assessment - Assessment Merits Inpatient Hospitalization: For Immediate Safety, For Stabilization, For Discharge Planning Inpatient DSM-V Dx: F25.0 Clinical Impression: This 62-year-old 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 He is extremely tense, irritable, and guarded. MHU: Problem List - Patient Problems (1) Schizoaffective disorder Current Visit: Yes Status: Acute Code(s): F25.9 - SCHIZOAFFECTIVE DISORDER, UNSPECIFIED SNOMED Code(s): 77382936 Plan - Plan Treatment Plan: Name: JESUS BENITEZ Birthdate: 1955 [id number] - Patient continues to be hospitalized due to non compliance, unpredictable and sexually inappropriate behavior in the community, delusional in his thinking. - Patient's medications were continued and has been compliant. Patient has been showing improvement and Depakene was continued at 1000 mg at Bedtime to help with recurrent sexual thoughts, mood instability and sleep disturbance. Patient Clonazepam to be reduced to 0.25 mg BID to help with anxiety, pacing and racing thoughts as per patient's request. -Patient Valproic Acid level was 85, CBC, CMP were grossly with in normal limits. - Abilify at 15 mg PO QAM with plan to titrate as needed and switch it to injectable Abilify as tolerated given EKG and QTc are with in safe range. - Patient will be monitored for improvement and side effects. Risk and benefits were discussed. -Patient accepted at [facility], in transition to be transferred. - Patient was encouraged to continue his participation in the milieu, group and individual therapy. Medications: Current Medications Acetaminophen (Tylenol Tab*) 650 mg PO Q4H PRN PRN Reason: PAIN or TEMP > 101 F Last Admin: 12/09/17 04:05 Dose: 650 mg Al Hydrox/Mg Hydrox/Simethicone (Maalox Plus*) 30 ml PO Q4H PRN PRN Reason: INDIGESTION Last Admin: 12/14/17 00:00 Dose: 30 ml Aripiprazole (Abilify Tab*) 15 mg PO DAILY [facility] Last Admin: 12/18/17 08:13 Dose: 15 mg Clonazepam (Klonopin Tab(*)) 0.25 mg PO BID [facility] Last Admin: 12/18/17 08:13 Dose: 0.25 mg Metoprolol Succinate (Toprol Xl Tab*) 25 mg PO DAILY [facility] Last Admin: 12/18/17 08:13 Dose: 25 mg Valproic Acid (Depakene Liq(*)) 1,000 mg PO BEDTIME [facility] Last Admin: 12/17/17 21:30 Dose: 1,000 mg
[2017-12-18] MEDS: Valproic Acid LIQ(*) 250 MG/5 ML UDC PO SCH (21:14)
[2017-12-19] MEDS: Metoprolol Succinate XL TAB* 25 MG PO SCH (08:06)
[2017-12-19] MEDS: ARIPiprazole TAB* 15 MG PO SCH (08:06)
[2017-12-19] MEDS: clonazePAM TAB(*) 0.5 MG PO SCH ×2 (08:06→21:20)
--- NOTE | 2017-12-19 12:19 | PN ---
Subjective - Subjective Date of Service: 12/19/17 Service Type: [id number] Hosp care 15 min low complexity Subjective: Patient was seen, discussed with team. Patient continues with her trust issues and some paranoia towards others. Patient has been showing improvement. Patient insight in his illness is improving as well and has been compliant with treatment. Patient requesting Depakene to be lowered and reports having nausea due to that. Patient has no episodes of vomiting. Patient was encouraged to switch liquid to pill/sprinkle. But insisting on lowering of Depakene. Patient continues to pace on the unit internally preoccupied in his thoughts which he reserves to share. Patient do not appear to respond to any stimuli. Patient wanted to write a cheque for a friend that helps him out in the community and with transportation. Objective - Appearance Appearance: Healthy Appearing Dysmorphic Features: No Hygiene: Normal Grooming: Fairly Well Kept - Behavior Psychomotor Activities: Normal Exhibits Abnormal Movement: No - Attitude and Relatedness Attitude and Relatedness: Superficially Cooperative Eye Contact: Fair - Speech Quality: Unpressured Latencies: Normal Quantity: Appropriate - Mood Patient's Decription of Mood: "Okay" - Affect Observed Affect: Fair Affect Consistent with: Euthymia - Thought Process Patient's Thought Process: Goal Directed Thought Content: Yes Paranoid Ideation - less intense, No Passive Wish, No Suicidal Planning, No Homicidal Ideation - Sensorium Experiencing Hallucinations: No, Sensorium is Clear Type of Hallucinations: Visual: No, Auditory: No, Command: No - Level of Consciousness Level of Consciousness: Alert Orientation: Yes Intact, Yes Orientated to Time, Yes Orientated to Place, Yes Orientated to Person - Impulse Control Impulse Control: Intact - Insight and Judgement Insight and Judgement: Poor - flutuates, but improving - Medication Management Medication Management Adherence: Yes Assessment - Assessment Merits Inpatient Hospitalization: For Immediate Safety, For Stabilization, For Discharge Planning Inpatient DSM-V Dx: F25.0 Clinical Impression: This 62-year-old 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 He is extremely tense, irritable, and guarded. MHU: Problem List - Patient Problems (1) Schizoaffective disorder Current Visit: Yes Status: Acute Code(s): F25.9 - SCHIZOAFFECTIVE DISORDER, UNSPECIFIED SNOMED Code(s): 45963694 Plan - Plan Treatment Plan: Name: JESUS BENITEZ Birthdate: 1955 [id number] - Patient continues to be hospitalized due to non compliance, unpredictable and sexually inappropriate behavior in the community, delusional in his thinking. - Patient's medications were continued and has been compliant. Patient has been showing improvement and Depakene was reduced to 750 mg at Bedtime to help with recurrent sexual thoughts, mood instability and sleep disturbance. Patient Clonazepam to be reduced to 0.25 mg BID to help with anxiety, pacing and racing thoughts as per patient's request. -Physical therapy was called as per patient request as he is reporting some discomfort with range of motion on Rt shoulder. - Abilify at 15 mg PO QAM with plan to titrate as needed and switch it to injectable Abilify as tolerated given EKG and QTc are with in safe range. - Patient will be monitored for improvement and side effects. Risk and benefits were discussed. -Patient accepted at [facility], in transition to be transferred coming Saturday. - Patient was encouraged to continue his participation in the milieu, group and individual therapy. Medications: Current Medications Acetaminophen (Tylenol Tab*) 650 mg PO Q4H PRN PRN Reason: PAIN or TEMP > 101 F Last Admin: 12/09/17 04:05 Dose: 650 mg Al Hydrox/Mg Hydrox/Simethicone (Maalox Plus*) 30 ml PO Q4H PRN PRN Reason: INDIGESTION Last Admin: 12/14/17 00:00 Dose: 30 ml Aripiprazole (Abilify Tab*) 15 mg PO DAILY [facility] Last Admin: 12/19/17 08:06 Dose: 15 mg Clonazepam (Klonopin Tab(*)) 0.25 mg PO BID [facility] Last Admin: 12/19/17 08:06 Dose: 0.25 mg Metoprolol Succinate (Toprol Xl Tab*) 25 mg PO DAILY [facility] Last Admin: 12/19/17 08:06 Dose: 25 mg Valproic Acid (Depakene Liq(*)) 750 mg PO BEDTIME [facility]
[2017-12-19] MEDS: Valproic Acid LIQ(*) 250 MG/5 ML UDC PO SCH (21:21)
[2017-12-20] MEDS: Acetaminophen TAB* 325 MG PO PRN (05:35)
[2017-12-20] MEDS: ARIPiprazole TAB* 15 MG PO SCH (07:43)
[2017-12-20] MEDS: clonazePAM TAB(*) 0.5 MG PO SCH ×2 (07:44→20:55)
[2017-12-20] MEDS: Metoprolol Succinate XL TAB* 25 MG PO SCH (07:44)
--- NOTE | 2017-12-20 12:03 | PN ---
Subjective - Subjective Date of Service: 12/20/17 Service Type: [id number] Hosp care 15 min low complexity Subjective: Patient was seen, discussed with team. Patient continues with his trust issues and paranoia towards others. Patient ros that his dose of Abilify and was not happy about that, but was educated that senior writer intends to but currently he is at the same dose of medications. Patient was educated that color of the pill might be different but it has been at the same dose. Patient was educated by med nurse on that but held on to that thought due to his trust issue and paranoia. And feeling that he is not given the right medications. Patient has been showing gradual improvement. Patient insight in his illness is improving as well and has been compliant with treatment but resistant to increment in dose. Patient reports feeling better with this dose of Depakene and improved nausea. Patient had no episodes of vomiting. Patient pace on the unit internally preoccupied in his thoughts which he reserves to himself. Patient do not appear to respond to any stimuli. Patient antipsychotics has been increased slowly due to previous [id number] with EKG. Objective - Appearance Appearance: Healthy Appearing Dysmorphic Features: No Hygiene: Normal Grooming: Fairly Well Kept - Behavior Psychomotor Activities: Normal Exhibits Abnormal Movement: No - Attitude and Relatedness Attitude and Relatedness: Superficially Cooperative Eye Contact: Fair - Speech Quality: Unpressured Latencies: Normal Quantity: Appropriate - Mood Patient's Decription of Mood: "Good" - Affect Observed Affect: Euphoric Affect Consistent with: Euphoria - Thought Process Patient's Thought Process: Coherent, Goal Directed - Sensorium Experiencing Hallucinations: No, Sensorium is Clear Type of Hallucinations: Visual: No, Auditory: No, Command: No - Level of Consciousness Level of Consciousness: Alert Orientation: Yes Intact, Yes Orientated to Time, Yes Orientated to Place, Yes Orientated to Person - Impulse Control Impulse Control: Intact - Insight and Judgement Insight and Judgement: Poor - but improving - Group Participation Particating in Group Activities: Yes - Medication Management Medication Management Adherence: Yes Assessment - Assessment Merits Inpatient Hospitalization: For Immediate Safety, For Stabilization, For Discharge Planning Inpatient DSM-V Dx: F25.0 Clinical Impression: This 62-year-old 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 He is extremely tense, irritable, and guarded. MHU: Problem List - Patient Problems (1) Schizoaffective disorder Current Visit: Yes Status: Acute Code(s): F25.9 - SCHIZOAFFECTIVE DISORDER, UNSPECIFIED SNOMED Code(s): 21496928 Plan - Plan Treatment Plan: Name: JESUS BENITEZ Birthdate: 1955 [id number] - Patient in the process of being transferred to [facility], patient has been gradually improving in his symptoms. - Patient's medications were continued and has been compliant. Patient has been showing improvement and Depakene was reduced to 750 mg at Bedtime to help with recurrent sexual thoughts, mood instability and sleep disturbance. Patient Clonazepam at 0.25 mg BID to help with anxiety, pacing and racing thoughts as per patient's request. -Physical therapy recommended patient, flex and abd stretches at the wall, and posterior self stretch. - Abilify at 15 mg PO QAM with plan to titrate as needed and switch it to injectable Abilify as tolerated given EKG and QTc are with in safe range. - Patient will be monitored for improvement and side effects. Risk and benefits were discussed. -Patient accepted at [facility], in transition to be transferred on Saturday12/23/17. - Patient was encouraged to continue his participation in the milieu, group and individual therapy. Medications: Current Medications Acetaminophen (Tylenol Tab*) 650 mg PO Q4H PRN PRN Reason: PAIN or TEMP > 101 F Last Admin: 12/20/17 05:35 Dose: 650 mg Al Hydrox/Mg Hydrox/Simethicone (Maalox Plus*) 30 ml PO Q4H PRN PRN Reason: INDIGESTION Last Admin: 12/14/17 00:00 Dose: 30 ml Aripiprazole (Abilify Tab*) 15 mg PO DAILY [facility] Last Admin: 12/20/17 07:43 Dose: 15 mg Clonazepam (Klonopin Tab(*)) 0.25 mg PO BID [facility] Last Admin: 12/20/17 07:44 Dose: 0.25 mg Metoprolol Succinate (Toprol Xl Tab*) 25 mg PO DAILY [facility] Last Admin: 12/20/17 07:44 Dose: 25 mg Valproic Acid (Depakene Liq(*)) 750 mg PO BEDTIME [facility] Last Admin: 12/19/17 21:21 Dose: 750 mg
[2017-12-20] MEDS: Valproic Acid LIQ(*) 250 MG/5 ML UDC PO SCH (20:54)
[2017-12-21] MEDS: clonazePAM TAB(*) 0.5 MG PO SCH ×2 (07:52→20:51)
[2017-12-21] MEDS: ARIPiprazole TAB* 15 MG PO SCH (07:53)
[2017-12-21] MEDS: Metoprolol Succinate XL TAB* 25 MG PO SCH (07:53)
[2017-12-21] MEDS: Valproic Acid LIQ(*) 250 MG/5 ML UDC PO SCH (20:12)
[2017-12-22] MEDS ORDERED: LORazepam TAB(*) 1 MG ONE (03:41)
[2017-12-22] MEDS ORDERED: LORazepam INJ* 2 MG/ML 1 ML VIAL ONE (03:41)
[2017-12-22] MEDS ORDERED: LORazepam INJ* 2 MG/ML 1 ML VIAL IM ONE (05:00)
[2017-12-22 08:38] VITALS: BP 138/75
[2017-12-22] MEDS: Metoprolol Succinate XL TAB* 25 MG PO SCH (08:55)
[2017-12-22] MEDS: ARIPiprazole TAB* 15 MG PO SCH (08:58)
[2017-12-22] MEDS: clonazePAM TAB(*) 0.5 MG PO SCH ×2 (08:58→21:10)
[2017-12-22] MEDS: Valproic Acid LIQ(*) 250 MG/5 ML UDC PO SCH (21:06)
[2017-12-23] MEDS: Acetaminophen TAB* 325 MG PO PRN (03:40)
[2017-12-23] MEDS ORDERED: LORazepam TAB(*) 1 MG ONE (05:24)
[2017-12-23] MEDS ORDERED: LORazepam TAB(*) 1 MG PO ONE ×2 (05:45→08:26)
[2017-12-23] MEDS: ARIPiprazole TAB* 15 MG PO SCH (08:06)
[2017-12-23] MEDS: clonazePAM TAB(*) 0.5 MG PO SCH (08:06)
[2017-12-23] MEDS: Metoprolol Succinate XL TAB* 25 MG PO SCH (08:06)
--- NOTE | 2017-12-23 14:04 | DS ---
Subjective - Subjective Service Types: [id number] [facility] Day Mgmt complex over 30 min Discharge Date: 12/23/17 Subjective: IDENTIFYING DATA: Mr. Lopez is a 62-year-old mentally disabled male , well known to this unit and surrounding hospitals because of numerous psychiatric hospitalizations in the past. His last hospitalization on this unit was on 10/20/16. He was brought to the emergency department yesterday with the recommendation by his ACT team and he came here in an ambulance. CHIEF COMPLAINT: The patient has been intimidating and sexually inappropriate in the community and was nonadhering to his appointments and/or proposed treatments. HISTORY OF PRESENT ILLNESS: Immanuel was brought to the emergency room against his will because of the above complaints in the community, as he was a risk for violence in the community. Immanuel has not been complying with his appointments with ACT team as well as refusing to take his medications as per our AOT orders resulting in acute decompensation psychiatrically. During today's evaluation, Immanuel was fine for approximately 30 seconds, answered questions very superficially and then walked away from the evaluation saying he did not need any help. He also declined for us to get his vital signs or do a physical examination. Repeated requests by the nursing for him to come back and let us help him was unsuccessful, he just walked away. Hence, the rest of history and physical will be from collateral information that we have on record. PAST PSYCHIATRIC HISTORY: Remarkable for numerous psychiatric hospitalizations starting at age 15. He was diagnosed with schizophrenia/schizoaffective disorder, bipolar type. In brief, he has always been noncompliant with any treatment recommendations despite the fact that he is on ACT team. PAST MEDICAL HISTORY: Remarkable for severe aortic stenosis and atrial fibrillation. Immanuel had always declined any interventions offered to him in the past and today. ALLERGIES: Unknown. FAMILY HISTORY: From collaterals, it is evident that both sides of his family struggled with mental illness, especially due to the diagnosis of schizophrenia , depression and anger management difficulties. His older brother is also known to suffer from mental illness; however, there is no family history of suicide. PERSONAL AND SOCIAL HISTORY: Immanuel has been mentally disabled since teenage years, never . No children. He is currently followed by [facility] team. He is unemployed and is totally dependent on public assistance. PHYSICAL EXAMINATION Physical exam was offered. Immanuel even did not allow us to do his vital signs, let alone do anything else. Review of emergency department's physical exam did not indicate any problem whatsoever including his known diagnosis of severe aortic stenosis as well as atrial fibrillation. There were no vitals available on record at that time; however, he does not appear to be in any kind of physical distress and we will continue to pursue to accomplish everything to make sure he is physically safe. DIAGNOSTIC STUDIES/LAB DATA: As such, an EKG was ordered along with an echocardiogram. We may even request for a hospitalist consult in case EKG or echocardiogram shows any abnormal reports. Labs done in the emergency room were unremarkable. His WBC count was 5.2, hemoglobin 13.6, hematocrit 38 which is slightly lower than normal, platelet count is 145 which is also on the lower end of normal. Comprehensive metabolic profile shows a sodium level of 139, potassium 3.6, chloride 105, carbon dioxide 28, BUN 16, creatinine 0.5. Rest of the report was also unremarkable. MENTAL STATUS EXAMINATION On ADMISSION: This 62-year-old male who is appropriately dressed, poorly groomed, alert and oriented to place and person. Due to his uncooperativeness, mental status is only observed. The patient declined to cooperate with answering any questions. He appears to be internally preoccupied, very tense, irritable, and severely dysphoric. Unable to sit still, pacing fast in the hallways, declines to answer any questions. He definitely is a high risk for violence if not observed very closely. DIAGNOSTIC IMPRESSION On ADMISSION: MENTAL HEALTH DIAGNOSIS: Schizoaffective disorder, bipolar type. PHYSICAL HEALTH DIAGNOSES: 1. Aortic stenosis. 2. History of atrial fibrillation. DIAGNOSTIC IMPRESSION On DISCHARGE: MENTAL HEALTH DIAGNOSIS: Schizoaffective disorder, bipolar type. PHYSICAL HEALTH DIAGNOSES: 1. History of atrial fibrillation. 2. Trace of Aortic Regurgitation Objective - Appearance Appearance: Healthy Appearing Dysmorphic Features: No Hygiene: Normal - Behavior Psychomotor Activities: Abnormal-Increased Exhibits Abnormal Movement: No - Attitude and Relatedness Attitude and Relatedness: Irritable Eye Contact: Fair - Speech Quality: Unpressured Latencies: Normal Quantity: Appropriate - Mood Patient's Decription of Mood: "Anxious" - Affect Observed Affect: Constricted Affect Consistent with: Dysphoria - Thought Process Patient's Thought Process: Goal Directed, Circumstantial Thought Content: Yes Paranoid Ideation, No Passive Wish, No Suicidal Planning, No Homicidal Ideation - Sensorium Experiencing Hallucinations: No, Sensorium is Clear Type of Hallucinations: Visual: No, Auditory: No, Command: No - Level of Consciousness Level of Consciousness: Agitated Orientation: Yes Intact, Yes Orientated to Time, Yes Orientated to Place, Yes Orientated to Person - Impulse Control Impulse Control: Poor - but improving - Insight and Judgement Insight and Judgement: Poor - but improving - Medication Management Medication Management Adherence: Yes Treatment Course & Assessment Clinical Course & Impression: This 62-year-old 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 He is extremely tense, irritable, and guarded. Immanuel was hospitalized on the behavioral science unit for his and others safety in the community. His code status was full. Supportive milieu, individual, and group therapy was offered; hopefully, which he was not interested until later during his hospitalization. He was monitored very closely for possible violence on the unit. We requested an EKG and echocardiogram. His Qtc was > 500 on EKG and Echocardiogram results displayed mild to moderate concentric left ventricular hypertrophy, ejection fraction was 50-55% with trace of aortic regurgitation. Patient was seen by self, discussed with treatment team, chart was reviewed. Patient was non compliant with his medications during initial days of hospitalization.Patient was in euphoric to irritable mood with hypersexual and paranoid thoughts. Patient was also reporting increase in religiosity. Patient was unpredictable with his behavior on the unit and was inappropriate with his boundaries towards other patients. Patient reportedly has been resistant to treatment and refusing PO medications including both for mental and physical health. Patient sleeping was impaired and was found pacing in the hallways. Patient was un cooperative with staff. Patient's pulse rate was increased in 150 's but asymptomatic. Patient's medications were continued but was non compliant. Multiple attempts were made to educate patient about compliance with his treatment. But continued to resist. Patient continued to rationalizes his not needing any medications even after court order. Patient had no insight in his medical or psychiatric illness. Patient was inappropriate with his boundaries towards other especially female patients. Patient was started on constant observation. Patient reportedly was struggling with his sexual urges and lustful thoughts. Patient continues to have paranoid delusions about water fountain that he feels might be poisoned. Patient continues to have paranoid and trust issues toward medical provider and still refuses his medications. Pursued with medication over objection which was approved by the court. Patient's medications were adjusted due concerns of increase Qtc, Invega Sustena was not started. Instead Abilify was considered after obtaining medical consult. With also discontinuation of [place] and started Depakene. Patient was partially compliant. Patient was encouraged to comply with his medications. Patient agreed to take Depakene to help with recurrent sexual thoughts, mood instability and sleep disturbance. Patient was given IM medications as per court order which resulted in compliance moving forward. Hospitalist consult was called to assess need for Xarelto and if any urgency in controlling pulse rate. Hospitalist recommended discontinuation of Xarelto given patient poor compliance. As it increases the risk of stroke with irregular nature of compliance. To control rate of Atrial Fibrillation, patient responded well to Meotprolol XL 25 mg PO Daily. Patient was showing improvement and less delusional in his thinking, making less paranoid and persecutory comments. Patient reported that he has better self control with medications. Patient although continued to have fluctuating insight in to his illness and struggled with ambivalence about his treatment. Patient required slow titration of his medications and EKG monitoring due to his prolong Qtc, ad Abilify was increased gradually wiht Depakene. After another court hearing patient was cleared for retention and referral to [facility] facility as he required longer term hospitalization for stabilization. Patient EKG monitoring displayed <450 Qtc with 15 mg of Abilify. Patient Depakene was increased to 1000mg at Bedtime with level of 85. But patient later requested down titration and was reduced to 750 mg at Bedtime. Patient was gradually improving but continued to have lability in his mood and ongoing psychotic symptoms. Patient was accepted at [facility]. Patient was distress about his transfer and required PO Ativan to help smooth transfer. Patient agreed with the plan and was willing to work with treatment providers at [facility] for further treatment and discharge planning with AOT and ACT team. Patient was safe on all check during later days of hospitalization and denied any suicidal or homicidal ideation. Patient had reduction in level of observation to Q30 minutes. Patient was able to obtain privileges like comfort room, computer privileges and staff pass, which he use appropriately. Merits Inpatient Hospitalization: Yes Clear for Discharge: Other - [facility] Inpatient DSM-V Dx: F25.0 Discharge Planning - Discharge Planning Discharge Plan: Consider Longer Term Tx Outpatient Program: [facility] Medications: Discharge Medications: Acetaminophen (Tylenol Tab*) 650 mg PO Q4H PRN PRN Reason: PAIN or TEMP > 101 F Last Admin: 12/20/17 05:35 Dose: 650 mg Al Hydrox/Mg Hydrox/Simethicone (Maalox Plus*) 30 ml PO Q4H PRN PRN Reason: INDIGESTION Last Admin: 12/14/17 00:00 Dose: 30 ml Aripiprazole (Abilify Tab*) 15 mg PO DAILY FOR[facility]LY [facility], [facility] Last Admin: 12/20/17 07:43 Dose: 15 mg Clonazepam (Klonopin Tab(*)) 0.25 mg PO BID FOR[facility]LY [facility], [facility] Last Admin: 12/20/17 07:44 Dose: 0.25 mg Metoprolol Succinate (Toprol Xl Tab*) 25 mg PO DAILY FOR[facility] Last Admin: 12/20/17 07:44 Dose: 25 mg Valproic Acid (Depakene Liq(*)) 750 mg PO BEDTIME FOR[facility] Last Admin: 12/19/17 21:21 Dose: 750 mg Discharge Planning: Prescriptions provided for discharge [] Yes [x] No Follow up care details as per social work arrangements. Patient response to discharge plan: [] eager for discharge [] agreeable with discharge plan [] ambivalent about discharge [] disagrees with discharge today
== END 2017-12-23 09:00 | DRG 885 ==
LOC: ED 14:31 → BSU 17:00
PROVIDERS: ADMIT Psychiatry & Neurology Psychiatry; ATTEND Psychiatry & Neurology Psychiatry
DX: F25.0 Schizoaffective disorder, bipolar type (principal); I48.91 Unspecified atrial fibrillation; I35.2 Nonrheumatic aortic (valve) stenosis with insufficiency; F41.9 Anxiety disorder, unspecified; I45.81 Long QT syndrome; Z91.19 Patient's noncompliance with other medical treatment and regimen; Z81.8 Family history of other mental and behavioral disorders; Z88.8 Allergy status to other drugs, medicaments and biological substances; Z88.0 Allergy status to penicillin; Z91.048 Other nonmedicinal substance allergy status; Z91.018 Allergy to other foods
CPT/HCPCS: 36415; 80053; 80061; 80164; 80178; 80320; 80329; 83036; 84443; 85025; 93005; 93306; 99222; 99231; 99232; 99233; 99238; 99284; A9270-GY; G0480; G8978-GP-CH; G8979-GP-CH; G8980-GP-CH; J2060

== ENCOUNTER 2018-08-27 09:20 | Emergency (ER) | payer MEDICARE, MEDICAID ==
[2018-08-27 09:29] VITALS: BP 139/99
--- NOTE | 2018-08-27 11:14 | UC ---
Lower Extremity/Ankle HPI - HPI Summary HPI Summary: PATIENT PRESENTS ACCOMPANIED BY HIS SISTER COMPLAINING OF 3 DAYS OF WORSENING BILATERAL FOOT PAIN, REDNESS AND SWELLING. PATIENT IS UNCOOPERATIVE AND REFUSES TO ANSWER ANY QUESTIONS DURING THE ENCOUNTER. HIS SISTER REPORTS HE HAS BEEN WEARING SHOES THAT ARE TOO SMALL WITH NO SOCKS. SHE STATES FAR SHE KNOWS HE IS PREDIABETIC. SHE REPORTS PATIENT DOES HAVE MENTAL ILLNESS BUT HAS BEEN OFF HIS MEDICATIONS FOR MANY YEARS. HE IS NOT AGGRESSIVE HOWEVER IS REFUSING ANY KIND OF EXAM. REFUSES TO ANSWER QUESTIONS. HE REFUSES TO REMOVE HIS SANDALS. - History of Current Complaint Chief Complaint: UCLowerExtremity Stated Complaint: R FOOT PAIN Time Seen by Provider: 08/27/18 10:33 Hx Obtained From: Family/Supervisor [facility] - SISTER Onset/Duration: Gradual Onset, Lasting Days, Still Present Severity Initially: Moderate Severity Currently: Moderate Pain Intensity: 0 Pain Scale Used: 0-10 Numeric Aggravating Factor(s): Nothing Alleviating Factor(s): Nothing Able to Bear Weight: Yes - Allergies/Home Medications Allergies/Adverse Reactions: Allergies Allergy/AdvReac Type Severity Reaction Status Date / Time house dust mite Allergy Unknown Unknown Verified 08/27/18 10:02 Reaction Details haloperidol [From Haldol] Allergy Unknown Verified 08/27/18 10:02 Reaction Details mold Allergy Unknown Verified 08/27/18 10:02 Reaction Details Penicillins Allergy Unknown Verified 08/27/18 10:02 Reaction Details pork derived (porcine) Allergy Unknown Verified 08/27/18 10:02 Reaction Details trifluoperazine Allergy Unknown Verified 08/27/18 10:02 Reaction Details dust Allergy Unknown Uncoded 08/27/18 10:02 Reaction Details PMH/Surg Hx/FS Hx/Imm Hx Endocrine History: Diabetes - "PREDIABETIC" Cardiovascular History: Atrial Fibrillation Psychological History: Other - PT WITH UNSPECIFIED MENTAL ILLNESS Other History Of: Negative For: Anticoagulant Therapy - Surgical History Surgical History: None - Family History Known Family History: Positive: Unknown - Patient is a LEVEL 5 CAVEAT, Other Family History: schizophrenia, depression - Social History Alcohol Use: None Alcohol Amount: patient denies etoh use Substance Use Type: None Smoking Status (MU): Never Smoked Tobacco - Immunization History Most Recent Influenza Vaccination: Unable to recall Most Recent Tetanus Shot: Unable to recall Most Recent Pneumonia Vaccination: Unable to recall Review of Systems All Other Systems Reviewed And Are Negative: Yes Constitutional: Positive: Negative Skin: Positive: Other - ULCERS, ERYTHEMA BILATERAL FEET Respiratory: Positive: Negative Cardiovascular: Positive: Negative Gastrointestinal: Positive: Negative Physical Exam Triage Information Reviewed: Yes Appearance: Well-Appearing, No Pain Distress, Well-Nourished Vital Signs: Initial Vital Signs Temp 0 F 08/27/18 09:25 Pulse 94 08/27/18 09:25 Resp 16 08/27/18 09:25 BP 139/99 08/27/18 09:25 Pulse Ox 100 08/27/18 09:25 Vital Signs Reviewed: Yes Eyes: Positive: Conjunctiva Clear ENT: Positive: Hearing grossly normal Neck: Positive: Supple Respiratory: Positive: No respiratory distress, No accessory muscle use Musculoskeletal: Positive: Edema @ - BILATERAL FEET WITH ULCERATIONS AND EDEMA, Other: - PT DECLINED TO ALLOW A COMPLETE EXAM. ON VISUAL EXAMINATION HE APPEARS TO HAVE NUMEROUS OPEN ULCERATIONS ON HIS FEET AND TOES WITH SURROUNDING ERYTHEMA AND EDEMA. Neurological: Positive: Alert Psychological: Positive: Other: - PT IS CALM BUT SEEMS DEFIANT AND IS REFUSING CARE Skin: Positive: Other - ULCERATIONS AND ERYTHEMA BOTH FEET Lower Extremity Course/Dx - Course Course Of Treatment: PATIENT ARRIVES ACCOMPANIED BY HIS SISTER. HE HAS A HISTORY OF MENTAL ILLNESS BUT HAS BEEN OFF HIS MEDICATIONS FOR YEARS. SISTER IS UNCLEAR TO WHAT PROVIDERS HE IS SUPPOSED TO BE SEEING AT THIS POINT. HE REPORTS A THREE-DAY HISTORY OF WORSENING ULCERATIONS ON HIS BILATERAL FEET. HIS SISTER STATES HE HAS BEEN WEARING SHOES THAT ARE TOO SMALL WITH NO SOCKS. SHE REPORTS HE IS PREDIABETIC. THROUGHOUT THE ENCOUNTER PATIENT IS CALM BUT UNCOOPERATIVE. IS REFUSING A PHYSICAL EXAM AND STATES HE WANTS TO BE DISCHARGED. BASED ON SUPERFICIAL VISUAL EXAMINATION OF HIS FEET PATIENT APPEARS TO HAVE SEVERAL DIABETIC FOOT ULCERATIONS. WILL COVER FOR STREP, MRSA, ANAEROBES AND PSEUDOMONAS WITH CIPRO AND CLINDAMYCIN. WILL USE TWICE A DAY DOSING FOR EASE OF USE. WOUND CARE CLINIC CONTACT INFORMATION PROVIDED. I ENCOURAGED HIS SISTER TO ASSIST HIM WITH ESTABLISHING WITH REGULAR FOLLOW-UP CARE. - Differential Dx/Diagnosis Provider Diagnosis: Foot ulcer, Cellulitis of both feet Discharge - Sign-Out/Discharge Documenting (check all that apply): Patient Departure All imaging exams completed and their final reports reviewed: No Studies - Discharge Plan Condition: Stable Disposition: HOME Prescriptions: Ciprofloxacin TAB* [Cipro 500 MG TAB*] 500 mg PO BID #20 tab Clindamycin HCl 600 mg PO BID #40 capsule Patient Education Materials: Cellulitis (ED), Diabetic Foot Ulcers (ED) Referrals: [facility] [Outside] - 1 Week Sebas Ochoa MD [Primary Care Provider] - 1 Week Additional Instructions: THE WOUNDS ON YOUR FEET APPEAR TO BE INFECTED HOWEVER I WAS UNABLE TO PERFORM A THOROUGH EXAMINATION. TAKE ANTIBIOTICS FOR THE FULL 10 DAYS. I'VE GIVEN YOU MEDICATIONS THAT ARE APPROPRIATE FOR EMPIRIC COVERAGE OF DIABETIC FOOT ULCERS GIVEN YOUR HISTORY OF POSSIBLE DIABETES. I HIGHLY RECOMMEND YOU FOLLOW-UP WITH THE WOUND CARE CLINIC FOR FURTHER EVALUATION AND TREATMENT. GO TO THE EMERGENCY ROOM WITHOUT FAIL IF YOU DEVELOP FEVER, WORSENING PAIN OR ANY OTHER CONCERNING SYMPTOMS. BE SURE TO WEAR APPROPRIATELY SIZED SHOES WITH GOOD PADDING TO PROTECT YOUR FEET. [facility] [phone] CALL THE NUMBER BELOW FOR ASSISTANCE IN ESTABLISHING WITH A PCP An additional resource available to assist in finding the appropriate physician for your health care needs is the [facility] ([facility]). You may contact them by calling [phone]. - Billing Disposition and Condition Condition: STABLE Disposition: Home
== END 2018-08-27 11:05 | disposition home or self-care (01) ==
LOC: UCEAST 09:20
DX: L03.116 Cellulitis of left lower limb (principal); L03.115 Cellulitis of right lower limb; L97.529 Non-pressure chronic ulcer of other part of left foot with unspecified severity; L97.519 Non-pressure chronic ulcer of other part of right foot with unspecified severity; I48.91 Unspecified atrial fibrillation; Z88.0 Allergy status to penicillin

== ENCOUNTER 2024-01-16 12:02 | Inpatient (IN) ==
[2024-01-16] MEDS ORDERED: Lorazepam PYXIS KEY PRN (12:23)
[2024-01-16 13:10] LABS: ABS Basophils 0.1 10^3/uL (0.0-0.1); ABS Eosinophils 0.1 10^3/uL (0.0-0.5); ABS Monocytes 0.6 10^3/uL (0.0-1.1); ABS Neutrophils 3.5 10^3/uL (1.5-7.6); ABS Nucleated RBC 0.01 10^3/ul; Eosinophil % 1.1 %; Hematocrit 39.1 % (38-53); Mean Corpuscular Hgb Conc 35.8 g/dL (31-36); Mean Corpuscular Volume 97.9 fL (80-97); Nucleated Red Blood Cells % 0.1 %/100WBC (0.0-0.8); Platelet Count 224 10^3/uL (150-450); Red Blood Count 3.99 10^6/uL (4.06-5.63); Red Cell Distribution Width 14.1 % (12-17); White Blood Count 5.2 10^3/uL (3.6-10.2)
[2024-01-16 14:00] LABS: Albumin 4.2 g/dL (3.2-5.2); Calcium 9.5 mg/dL (8.6-10.3); Creatinine, Serum 0.77 mg/dL (0.67-1.17); Globulin 2.1 g/dL (2-4); Potassium 3.9 mmol/L (3.5-5.0); Total Bilirubin 1.8 mg/dL (0.2-1.0); Total Protein 6.3 g/dL (6.4-8.9); eGFR CKD-EPI 97.5 (>60)
[2024-01-16] MEDS: Haloperidol 5 mg/ml SDV IV/IM 5 MG/ML AMP IM ONE (18:54)
[2024-01-16] MEDS: LORazepam 2 mg VIAL 1 ml IM ONE (18:55)
[2024-01-16] MEDS ORDERED: Valproic Acid LIQ 250 MG/5 ML UDC PO SCH (21:00)
[2024-01-16] MEDS: Al Hydrox/Mg Hydrox/Simet LIQ 30 ML UDC PO PRN (22:25)
[2024-01-17] MEDS ORDERED: Cholecalciferol (VIT D3) 1,000 unit TAB PO SCH (09:00)
[2024-01-23] MEDS ORDERED: Sulfur Hexaflouride MICROSPHR 25 MG VIAL IV PRN (14:12)
[2024-01-24 10:11] LABS: HDL Cholesterol 58.5 mg/dL
[2024-01-24] MEDS: Paliperidone SUSTENNA 234 MG/1.5 ML IM ONE (10:49)
[2024-01-25] MEDS: OLANZapine 10 mg TAB*ODT PO ONE (09:20)
[2024-01-25] MEDS: OLANZapine 10 mg TAB*ODT ONE (09:20)
[2024-01-26] MEDS: OLANZapine 10 mg TAB*ODT PO SCH ×2 (09:17→21:15)
[2024-01-27] MEDS ORDERED: Paliperidone SUSTENNA 234 MG/1.5 ML IM ONE (11:00)
[2024-01-27] MEDS: Paliperidone SUSTENNA 234 MG/1.5 ML IM ONE (12:23)
[2024-01-28] MEDS: Oral Rinse (Biotene)(NF) 237 ML or 473 ML ORAL RINSE BTL MT PRN (20:23)
[2024-01-31] MEDS: Paliperidone SUSTENNA 156 MG/1 ML IM ONE (15:54)
[2024-02-01 10:16] VITALS: BP 144/93
[2024-02-02] MEDS: Magnesium Hydroxide LIQ 30 ML UDC PO PRN (16:37)
== END 2024-02-03 11:45 | disposition home or self-care (01) | DRG 885 ==
LOC: ED 12:02 → EDHOLD 13:26 → BSU 13:36
PROVIDERS: ADMIT Psychiatry & Neurology Psychiatry; ATTEND Psychiatry & Neurology Psychiatry